=== PATIENT | female | born 1930 | race African-American/Black ===

== ENCOUNTER 2016-10-28 21:39 | Emergency (ER) | payer OTHER ==
[2016-10-28 21:52] VITALS: BMI 28.8
[2016-10-28] MEDS ORDERED: SODIUM CHLORIDE 1,000 ML IV SCH (22:15)
[2016-10-28 22:59] LABS: BASOPHIL 1.5 % (0-2.0); EOSINOPHIL 4.7 % (0-4.5); MCH 28.2 pg (25.7-33.7); MCHC 32.7 g/dl (32.0-36.0); MEAN CELL VOLUME 86.4 fl (80-96); MEAN PLT VOLUME 8.4 fl (7.5-11.1); NEUTROPHILS 44.7 % (42.8-82.8); PLATELET COUNT 237 K/MM3 (134-434); RDW 14.3 % (11.6-15.6); WHITE BLOOD COUNT 6.4 K/mm3 (4.0-10.0)
[2016-10-28 23:11] LABS: URINE APPEARANCE SLCLOUDY; URINE BILIRUBIN NEGATIVE (NEGATIVE); URINE BLOOD NEGATIVE (NEGATIVE); URINE COLOR LTYELLOW; URINE GLUCOSE (UA) NEGATIVE (NEGATIVE); URINE KETONE NEGATIVE (NEGATIVE); URINE NITRITE NEGATIVE (NEGATIVE); URINE PROTEIN NEGATIVE (NEGATIVE); URINE UROBILINOGEN NEGATIVE E.U./dl (0.2-1.0)
[2016-10-28 23:14] LABS: URINE BACTERIA RARE /hpf (NONE SEEN); URINE LEUK ESTERASE TRACE (NEGATIVE); URINE MUCUS RARE; URINE RBC 2 /hpf (0-3); URINE WBC 5 /hpf (3-5)
[2016-10-28 23:16] LABS: INR 0.96 (0.82-1.09); PROTHROMBIN TIME (PATIENT) 10.5 SEC (9.98-11.88)
[2016-10-28 23:23] LABS: ALBUMIN 4.1 g/dl (3.4-5.0); ANION GAP 12 (8-16); BILIRUBIN,TOTAL 0.3 mg/dL (0.2-1.0); CALCIUM 9.5 mg/dL (8.5-10.1); CO2 23 mmol/L (21-32); CREATININE 1.9 mg/dL (0.55-1.02); GLUCOSE,RANDOM 106 mg/dL (74-106); SGOT/AST 24 U/L (15-37); SGPT/ALT 25 U/L (12-78); TOT PROT 7.6 g/dl (6.4-8.2)
[2016-10-28 23:26] LABS: ALK PHOS 72 U/L (45-117); TROPONIN I < 0.02 ng/ml (0.00-0.05)
--- NOTE | 2016-10-28 23:26 | PDOC ---
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 Patient reports her blood pressure medication was recently increased 2 weeks ago. She reports new onset headache today and "pressure behind both eyes." She denies any change in vision, difficulty speaking or swallowing, weakness, difficulty walking. No recent travel or sick contacts. PAST MEDICAL HISTORY: Denies past medical history FAMILY HISTORY: Denies SOCIAL HISTORY: Denies tobacco, alcohol, illicit drug use. SURGICAL HISTORY: Denies ALLERGIES: No known drug allergies REVIEW OF SYSTEMS General/Constitutional: Denies fever or chills. Denies weakness, weight change. HEENT: Pressure behind eyes. Denies change in vision. Denies ear pain or discharge. Denies sore throat. Cardiovascular: Denies chest pain or shortness of breath. Respiratory: Denies cough, wheezing, or hemoptysis. Gastrointestinal: Denies nausea, vomiting, diarrhea or constipation. Denies rectal bleeding. Genitourinary: Denies dysuria, frequency, or change in urination. Musculoskeletal: Denies joint or muscle swelling or pain. Denies neck or back pain. Skin and breasts: Denies rash or easy bruising. Neurologic: Headache today. Denies vertigo, loss of consciousness, or loss of sensation. PHYSICAL EXAM General Appearance: Well-appearing, appropriately dressed. No apparent distress , no intoxication. HEENT: EOMI, PERRLA, normal ENT inspection, normal voice, TMs normal, pharynx normal. No conjunctival pallor. No photophobia, scleral icterus. Neck: Supple. Trachea midline. No tenderness, rigidity, carotid bruit, stridor , lymphadenopathy, or thyromegaly. Respiratory/Chest: Lungs CTAB. No shortness of breath, chest tenderness, respiratory distress, accessory muscle use. No crackles, rales, rhonchi, stridor , wheezing, dullness Cardiovascular: RRR. S1, S2. No JVD, murmur, bradycardia, tachycardia. Vascular Pulses: Dorsalis-Pedis (R): 2+, Dorsalis-Pedis (L): 2+ Gastrointestinal/Abdominal: Normal bowel sounds. Abdomen soft, non-distended. No tenderness or rebound tenderness. No organomegaly, pulsatile mass, guarding , hernia, hepatomegaly, splenomegaly. Lymphatic: No adenopathy, tenderness. Musculoskeletal/Extremities: Normal inspection. FROM of all extremities, normal capillary refill. Pelvis Stable. No CVA tenderness. No tenderness to extremities, pedal edema, swelling, erythema or deformity. Integumentary: Appropriate color, dry, warm. No cyanosis, erythema, jaundice or rash Neurologic: sales marketing manager II-XII intact. Fully oriented, alert. Appropriate mood/affect. Motor strength 5/5. No appreciable EOM palsy, facial droop or sensory deficit. A&Ox3, follow commands, respond appropriately CN2-12: conjugate gaze, pupil round, equal and reactive to light. Visual field full to confrontation. EOMI without nystagmus, pursuit is smooth without saccade. Facial sensation and muscle activation intact bilaterally. Hearing intact bilaterally. Palate elevate symmetrically. Shoulder shrug and neck turn full strength. Tongue protrude midline. Motor: UE and LE strength 5/5 throughout bilaterally. Muscle tone and bulk normal. Sensory: pin prick & temp : BUE & BLE intact and equal bilaterally Vibration & propioception: intact bilaterally at 1st MCP and MTP joints. no sensory level noted on trunk Cerebellar: Rapid-alternating movement with regular rhythm without bradykinesia. Urzjpe-va-ahuv and goqt-iz-tmuz intact bilaterally without dysmetria or overshoot. Gait narrow based. No shuffling. Full hip flexion and knee flexion. Negative Romberg No involuntary movement noted. No pronator drift. No clonus. Past History - Past Medical History Allergies/Adverse Reactions: Allergies Allergy/AdvReac Type Severity Reaction Status Date / Time Sulfa (Sulfonamide Allergy Intermediate Hives Verified 10/28/16 21:52 Antibiotics) Home Medications: Ambulatory Orders Carvedilol 2 tab PO BID tablet 03/09/14 Cholecalciferol (Vitamin D3) [Vitamin D] 1,000 unit PO DAILY 03/09/14 Losartan Potassium 100 mg PO DAILY 03/09/14 Aspirin [Ecotrin] 325 mg PO DAILY 10/28/16 Glipizide Xl [Glucotrol Xl -] 2.5 mg PO DAILY 10/28/16 Hydralazine HCl 50 mg PO BID 10/28/16 CVA: Yes (1999, mild right sided weakness) Diabetes: Yes HTN: Yes Hypercholesterolemia: Yes - Surgical History Orthopedic Surgery: Yes (left knee surgery) - Psycho/Social/Smoking Cessation Hx Anxiety: No Suicidal Ideation: No Smoking Status: No Smoking History: Never smoked Number of Cigarettes Smoked Daily: 0 Hx Alcohol Use: No Drug/Substance Use Hx: No Substance Use Type: None Hx Substance Use Treatment: No *Physical Exam - Vital Signs Last Vital Signs Temp Pulse Resp BP Pulse Ox 97.6 F 63 18 166/92 98 10/28/16 21:49 10/28/16 21:49 10/28/16 21:49 10/28/16 21:49 10/28/16 21:49 ED Treatment Course - LABORATORY CBC & Chemistry Diagram: 10/28/16 22:47 10/28/16 22:47 - ADDITIONAL ORDERS Additional order review: Laboratory Results 10/28/16 23:03 Urine Color Ltyellow Urine Appearance Slcloudy Urine pH 5.0 Urine Protein Negative Urine Glucose (UA) Negative Urine Ketones Negative Urine Blood Negative Urine Nitrite Negative Urine Bilirubin Negative Urine Urobilinogen Negative Ur Leukocyte Esterase Trace H Urine RBC 2 Urine WBC 5 Ur Epithelial Cells Rare Urine Bacteria Rare Urine Mucus Rare 10/28/16 22:47 RBC 4.62 MCV 86.4 MCHC 32.7 RDW 14.3 MPV 8.4 Neutrophils % 44.7 Lymphocytes % 39.1 Monocytes % 10.0 Eosinophils % 4.7 H Basophils % 1.5 - RADIOLOGY Radiology Studies Ordered: Category Date Time Status CHEST PA & LAT [RAD] Stat Radiology 10/28/16 22:13 Ordered Medical Decision Making - Medical Decision Making 10/29/16 05:46 86 yo F with 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 Patient is neurologically intact, speaking in full clear sentences coherently explaining her medical history and medications. VSS. -CBC, CMP, PT/INR -CXR, EKG On repeat VS, patient's BP is 190/84. -10 mg hydralazine given Discussed case with covering PCP Zeferino, who agrees that patient is stable to be discharged home and f/u outpatient in office tomorrow. Repeat BP, 190/86. Patient continues to c/o of pressure behind eyes and that the back of her head continues to hurt. However, on further discussion patient reports that the pain in the back of her head is chronic "especially when I am laying straight on my head." -10 mg Labetalol Patient repeat BP 148/77. Will continue to monitor BP prior to discharge. Patient BP elevated to 170s/100s. Catapres 0.2mg given. Will continue to monitor. BP monitored for following two hours, now stable between 150-160/80-90s. Will discharge to home, patient will see Dr. Mcgarry in office today for BP medication management. *DC/Admit/Observation/Transfer Diagnosis at time of Disposition: Hypertension complications - Discharge Dispostion Disposition: HOME Admit: No - Referrals Referrals: Neda Robertson MD [Primary Care Provider] - - Patient Instructions Printed Discharge Instructions: DI for High Blood Pressure Additional Instructions: As discussed, you must follow up with Dr. Mcgarry in the office today. If you experience any change in vision, sudden weakness, difficulty speaking or swallowing, difficulty walking, or any new or worsening symptoms, please return to the ER immediately.
[2016-10-29] MEDS ORDERED: SODIUM CHLORIDE 0.9% 1000 ML INFUS.BAG IV ONE (00:09)
[2016-10-29] MEDS ORDERED: ACETAMINOPHEN 1000 MG/100 ML VIAL (NON FORMULARY) IVPB ONE (00:17)
[2016-10-29] MEDS ORDERED: ACETAMINOPHEN INJECTION 100 ML IVPB ONE (00:46)
[2016-10-29] MEDS ORDERED: hydrALAZINE HCL 20 MG/ML VIAL IVPUSH ONE ×2 (00:54→02:06)
[2016-10-29] MEDS ORDERED: hydrALAZINE HCL 20 MG/ML VIAL ONE (00:55)
[2016-10-29 01:06] VITALS: TEMP 98
[2016-10-29] MEDS ORDERED: LABETALOL HCL 5 MG/1 ML (100MG/20 ML VIAL) IVPUSH ONE (02:16)
[2016-10-29] MEDS ORDERED: LABETALOL HCL 5 MG/1 ML (200MG/40ML VIAL) IVPB ONE (02:28)
[2016-10-29] MEDS ORDERED: cloNIDine HCL 0.1 MG TABLET PO ONE (03:44)
[2016-10-29] MEDS ORDERED: cloNIDine HCL 0.1 MG TABLET ONE (04:41)
[2016-10-29 07:21] VITALS: BP 90/65; PULSE 60
--- NOTE | 2016-10-29 17:23 | EKG ---
Test Reason : Blood Pressure : / mmHG Vent. Rate : 057 BPM Atrial Rate : 057 BPM P-R Int : 204 ms QRS Dur : 104 ms QT Int : 428 ms P-R-T Axes : 042 014 024 degrees QTc Int : 416 ms SINUS BRADYCARDIA NONSPECIFIC ST-T CHANGES WHEN COMPARED WITH ECG OF 09-MAR-2014 21:22, NO SIGNIFICANT CHANGE WAS FOUND Confirmed by SHANTE ABURTO MD ([id number]) on 10/29/2016 5:22:45 PM Referred By: Confirmed By:SHANTE ABURTO MD
== END 2016-10-29 06:59 | disposition home or self-care (01) ==
LOC: JER 21:39
PROC: 3E0337Z Introduction of Electrolytic and Water Balance Substance into Peripheral Vein, Percutaneous Approach (ICD-10-PCS; principal; 2016-10-28)
PROC: 3E033NZ Introduction of Analgesics, Hypnotics, Sedatives into Peripheral Vein, Percutaneous Approach (ICD-10-PCS; 2016-10-28)
PROC: 3E033GC Introduction of Other Therapeutic Substance into Peripheral Vein, Percutaneous Approach (ICD-10-PCS; 2016-10-28)
PROC: 3E033GC Introduction of Other Therapeutic Substance into Peripheral Vein, Percutaneous Approach (ICD-10-PCS; 2016-10-28)
DX: I10 Essential (primary) hypertension (principal); E11.9 Type 2 diabetes mellitus without complications; Z79.84 Long term (current) use of oral hypoglycemic drugs; E78.00 Pure hypercholesterolemia, unspecified; I69.851 Hemiplegia and hemiparesis following other cerebrovascular disease affecting right dominant side
CPT/HCPCS: 36415; 71020-TC; 80053; 81003; 81015; 82550; 82553; 83880; 84484; 85025; 85610; 93005; 93010; 96361; 96374; 96375; 99283-25

== ENCOUNTER 2016-11-25 05:19 | Inpatient (IN) | payer OTHER ==
[2016-11-25 05:50] VITALS: BMI 28.8
--- NOTE | 2016-11-25 05:59 | PDOC ---
History of Present Illness - General Chief Complaint: Pain, Acute Stated Complaint: RT SIDE FLANK PAIN/BACK PAIN Time Seen by Provider: 11/25/16 05:48 History Source: Patient - History of Present Illness Initial Comments: 11/25/16 05:55 86 year old female with right sided chest pain radiating right posterior. pain worse with movement. patient reports pleuritic chest pain. denies diaphoresis, trauma, heavy lifting, NVD, abdominal pain, urinary complaints. pmhx: htn, dm, cva with right sided weakness Past History - Past Medical History Allergies/Adverse Reactions: Allergies Allergy/AdvReac Type Severity Reaction Status Date / Time Sulfa (Sulfonamide Allergy Intermediate Hives Verified 11/25/16 05:30 Antibiotics) Home Medications: Ambulatory Orders Carvedilol 6.25 mg PO BID tablet 03/09/14 Cholecalciferol (Vitamin D3) [Vitamin D] 1,000 unit PO DAILY 03/09/14 Losartan Potassium 100 mg PO DAILY 03/09/14 Aspirin [Ecotrin] 325 mg PO DAILY 10/28/16 Glipizide Xl [Glucotrol Xl -] 2.5 mg PO DAILY 10/28/16 Hydralazine HCl 50 mg PO BID 10/28/16 Nifedipine ER [Procardia Xl -] 30 mg PO DAILY 11/25/16 CVA: Yes (1999, mild right sided weakness) Diabetes: Yes HTN: Yes Hypercholesterolemia: Yes - Surgical History Orthopedic Surgery: Yes (left knee surgery) - Psycho/Social/Smoking Cessation Hx Anxiety: No Suicidal Ideation: No Smoking Status: No Smoking History: Never smoked Number of Cigarettes Smoked Daily: 0 Hx Alcohol Use: No Drug/Substance Use Hx: No Substance Use Type: None Hx Substance Use Treatment: No Review of Systems - Review of Systems Able to Perform ROS?: Yes Is the patient limited Yemeni proficient: No Respiratory: Yes: Other (right chest to right posterior tender to touch) Cardiac (ROS): Yes: Chest Pain (right ) ABD/GI: No: Symptoms Reported, See HPI, Abdominal Distended, Abd. Pain w/ defecation, Blood Streaked Bowels, Constipated, Diarrhea, Difficulty Swallowing , Nausea, Poor Appetite, Poor Fluid Intake, Rectal Bleeding, Vomiting, Indigestion, Abdominal cramping, Tarry Stools, Other *Physical Exam - Vital Signs Last Vital Signs Temp Pulse Resp BP Pulse Ox 97.8 F 82 20 158/72 97 11/25/16 05:36 11/25/16 05:36 11/25/16 05:36 11/25/16 05:36 11/25/16 05:36 - Physical Exam General Appearance: Yes: Appropriately Dressed Respiratory/Chest: positive: Chest Tender (right anterior and posterior chest is tender to touch), Lungs Clear, Decreased Breath Sounds (right base slightly decreased breath sounds. no wheezing, no retractions. pain on palpation and pain worse with movement) Cardiovascular: positive: Regular Rhythm, Regular Rate Gastrointestinal/Abdominal: positive: Normal Bowel Sounds, Soft. negative: Tender Musculoskeletal: positive: Normal Inspection Extremity: positive: Normal Capillary Refill, Normal Inspection, Normal Range of Motion Integumentary: positive: Normal Color, Dry, Warm Neurologic: positive: Fully Oriented, Alert ED Treatment Course - LABORATORY CBC & Chemistry Diagram: 11/25/16 06:15 11/25/16 06:15 Progress Note - Progress Note Progress Note: A: chest pain P: cbc cmp d-dimer EKG chest xray pa and lateral *DC/Admit/Observation/Transfer Diagnosis at time of Disposition: Pleuritic chest pain - Referrals Referrals: Neda Robertson MD [Primary Care Provider] -
[2016-11-25] MEDS ORDERED: ASPIRIN 81 MG CHEWABLE TABLETS PO ONE ×2 (06:01→13:15)
[2016-11-25 06:54] LABS: BASOPHIL 0.5 % (0-2.0); EOSINOPHIL 2.5 % (0-4.5); MCH 29.6 pg (25.7-33.7); MEAN CELL VOLUME 86.9 fl (80-96); NEUTROPHILS 69.8 % (42.8-82.8); PLATELET COUNT 239 K/MM3 (134-434); RDW 14.4 % (11.6-15.6); WHITE BLOOD COUNT 9.7 K/mm3 (4.0-10.0)
[2016-11-25] MEDS ORDERED: morphine CARPU-JECT 2 MG/1 ML DISP.SYRIN IVPUSH ONE (07:03)
--- NOTE | 2016-11-25 07:07 | PDOC ---
*Physical Exam - Vital Signs Last Vital Signs Temp Pulse Resp BP Pulse Ox 97.8 F 82 20 158/72 97 11/25/16 05:36 11/25/16 05:36 11/25/16 05:36 11/25/16 05:36 11/25/16 05:36 ED Treatment Course - LABORATORY CBC & Chemistry Diagram: 11/25/16 06:15 11/25/16 06:15 - Medications Given in the ED: ED Medications Discontinued Medications Generic Name Dose Route Start Last Admin Trade Name Armin PRN Reason Stop Dose Admin Aspirin 162 mg 11/25/16 06:01 11/25/16 06:40 Asa - PO 11/25/16 06:02 Not Given ONCE ONE Medical Decision Making - Medical Decision Making 11/25/16 07:04 I agree with CL Collins's history, assessment and plan 86yo F p/w R sided atraumatic pleuritic CP with no associated infectious sxs concering for PE vs ACS vs PNA -labs -dimer, if positive, obtain CTA -CXR -pain control -reassess *DC/Admit/Observation/Transfer Diagnosis at time of Disposition: Pleuritic chest pain - Referrals Referrals: Neda Robertson MD [Primary Care Provider] - - Patient Instructions - Post Discharge Activity
[2016-11-25 07:20] LABS: ALBUMIN 3.5 g/dl (3.4-5.0); ANION GAP 10 (8-16); BILIRUBIN,TOTAL 0.7 mg/dL (0.2-1.0); CALCIUM 8.6 mg/dL (8.5-10.1); CO2 23 mmol/L (21-32); CREATININE 1.5 mg/dL (0.55-1.02); GLUCOSE,RANDOM 137 mg/dL (74-106); SGPT/ALT 21 U/L (12-78); TOT PROT 6.9 g/dl (6.4-8.2)
[2016-11-25 07:34] LABS: ALK PHOS 67 U/L (45-117)
[2016-11-25 07:44] LABS: INR 1.02 (0.82-1.09); PROTHROMBIN TIME (PATIENT) 11.2 SEC (9.98-11.88)
--- NOTE | 2016-11-25 07:52 | PDOC ---
ED Treatment Course - LABORATORY CBC & Chemistry Diagram: 11/25/16 06:15 11/25/16 06:15 - ADDITIONAL ORDERS Additional order review: Laboratory Results 11/25/16 11/25/16 06:15 06:15 D-Dimer Cancelled B-Natriuretic Peptide 2823.25 H 11/25/16 06:15 RBC 4.13 MCV 86.9 MCHC 34.0 RDW 14.4 MPV 9.0 Neutrophils % 69.8 D Lymphocytes % 17.8 D Monocytes % 9.4 Eosinophils % 2.5 Basophils % 0.5 - Medications Given in the ED: ED Medications Discontinued Medications Generic Name Dose Route Start Last Admin Trade Name Armin PRN Reason Stop Dose Admin Aspirin 162 mg 11/25/16 06:01 11/25/16 06:40 Asa - PO 11/25/16 06:02 Not Given ONCE ONE Progress Note - Progress Note Progress Note: I have received report from CL Collins regarding this patient. Pt's initial chief complaint: right sided chest pain radiating to right posterior. Pt's work up completed prior to sign out: EKG, CBC Pt treatment given from prior staff: Aspirin, morphine Pt plan to be completed: CXR, completion of labs Dispo: Pending Medical Decision Making - Medical Decision Making A/P: 86 y/o afebrile female with right sided chest pain radiating to right posterior, worse with movement and deep inspiration. Pt was initially seen and assessed by CL Collins. Awaiting completion of labs and xrays. CXR and rib xray IMPRESSION: Small right pleural effusion Troponin 0.97; was <0.02 on 10/28/16 BNP 2800; was 90 on 10/28/16 This is most likely an NSTEMI as there are no ST elevations on EKG. The patient states she's been having the pain for [address] Huber for cardiology. Paged Dr. Gonzalez multiple times as he was in the ER but no call back. Called Dr. Huber at his office. Still awaiting call back. Called Dr. Robertson for admission and Dario Mcgarry is covering for her so awaiting his call back. The patient is on daily ecotrin (aspirin) spoke with Dr. gonzalez who would like heparin protocol (Pt had CVA in 1999). Spoke with Dr. Brook Mcgarry who accepts admission to him. The patient states her chest pain is resolved since having Morphine upon arrival to the ER, so will hold off on giving Nitro and more morphine. *DC/Admit/Observation/Transfer Diagnosis at time of Disposition: Pleuritic chest pain, NSTEMI (non-ST elevated myocardial infarction) - Discharge Dispostion Condition at time of disposition: Stable Admit: Yes - Referrals Referrals: Neda Robertson MD [Primary Care Provider] - - Patient Instructions - Post Discharge Activity
[2016-11-25 08:28] LABS: MAGNESIUM 2.4 mg/dL (1.8-2.4)
[2016-11-25 08:29] LABS: CPK 312 IU/L (26-192); SGOT/AST 36 U/L (15-37)
[2016-11-25 08:30] LABS: TROPONIN I 0.97 ng/ml (0.00-0.05)
[2016-11-25] MEDS ORDERED: morphine CARPU-JECT 4 MG/1 ML DISP.SYRIN ONE (08:50)
[2016-11-25 09:27] LABS: URINE APPEARANCE SLCLOUDY; URINE BILIRUBIN NEGATIVE (NEGATIVE); URINE BLOOD NEGATIVE (NEGATIVE); URINE COLOR LTYELLOW; URINE GLUCOSE (UA) NEGATIVE (NEGATIVE); URINE KETONE NEGATIVE (NEGATIVE); URINE LEUK ESTERASE NEGATIVE (NEGATIVE); URINE NITRITE NEGATIVE (NEGATIVE); URINE PROTEIN NEGATIVE (NEGATIVE); URINE UROBILINOGEN NEGATIVE mg/dL (0.2-1.0)
[2016-11-25] MEDS ORDERED: HEPARIN NA (PORCINE) 5,000 UNITS/ML 1ML VIAL IVPUSH PRN ×2 (11:35)
--- NOTE | 2016-11-25 11:44 | CON.CARD ---
Consult Consult Specialty:: cardio Referred by:: renae hathaway Reason for Consultation:: cp, NSTEMI - History of Present Illness Chief Complaint: cp History of Present Illness: 86 yo female admitted with CP. 2d ago began feeling pain under R breast near axillary line, radiating around to R scapula. marked pleuritic component. no assctd sob--has chronic sob ever since her stroke and feels this is same sob. pain came and went that day, back yest during day but milder. then 5pm last night, more intensive pain in same area. also tender to touch and when lays on the R scapula region in bed. no leg swelling, pain; denies h/o DVT/VTE trop 0.9--heparin started in ER. home meds: ASA 81, coreg 6.25 bid, hydral 50 bid (recently incr'd by [facility] for hi bp), losartan 50 qd (sees [facility]) PMH: HTN HPL cva - Alcohol/Substance Use Hx Alcohol Use: No - Smoking History Smoking history: Never smoked Aproximately how many cigarettes per day: 0 Home Medications - Allergies Allergies/Adverse Reactions: Allergies Allergy/AdvReac Type Severity Reaction Status Date / Time Sulfa (Sulfonamide Allergy Intermediate Hives Verified 11/25/16 05:30 Antibiotics) - Home Medications Home Medications: Ambulatory Orders Carvedilol 6.25 mg PO BID tablet 03/09/14 Cholecalciferol (Vitamin D3) [Vitamin D] 1,000 unit PO DAILY 03/09/14 Losartan Potassium 100 mg PO DAILY 03/09/14 Aspirin [Ecotrin] 325 mg PO DAILY 10/28/16 Glipizide Xl [Glucotrol Xl -] 2.5 mg PO DAILY 10/28/16 Hydralazine HCl 50 mg PO BID 10/28/16 Nifedipine ER [Procardia Xl -] 30 mg PO DAILY 11/25/16 Family Disease History - Family Disease History Family History: Denies (no cmp) Review of Systems - Review of Systems Constitutional: denies: Chills, Fever Eyes: denies: Eye Pain HENT: denies: Nasal Congestion Neck: denies: Stiffness Cardiovascular: denies: Palpitations Respiratory: denies: Orthopnea, PND Gastrointestinal: denies: Diarrhea, Rectal Bleeding Genitourinary: denies: Burning, Hematuria Musculoskeletal: denies: Muscle Pain Integumentary: denies: Rash Neurological: denies: Numbness, Seizure, Syncope Endocrine: denies: Excessive Sweating Hematology/Lymphatic: denies: Excessive Bleeding Vital Signs: Vital Signs Temperature 98.4 F 11/25/16 09:08 Pulse Rate 68 11/25/16 09:08 Respiratory Rate 18 11/25/16 09:08 Blood Pressure 147/68 11/25/16 09:08 O2 Sat by Pulse Oximetry (%) 98 11/25/16 09:08 Constitutional: Yes: Well Nourished, No Distress Eyes: No: Sclera Icterus HENT: No: Nasal Congestion Neck: No: Decreased ROM Respiratory: Yes: CTA Bilaterally. No: Accessory Muscle Use, Rales, Wheezes Gastrointestinal: Yes: Normal Bowel Sounds. No: Distention, Hepatomegaly, Palpable Mass, Tenderness Cardiovascular: Yes: Regular Rate and Rhythm JVD: No Carotid Bruit: No PMI: Non-Displaced Heart Sounds: Yes: S1, S2. No: Gallop Murmur: No: Systolic Murmur, Diastolic Murmur Musculoskeletal: Yes: Other (No kyphosis) Extremities: No: Cold, Cyanosis Edema: No (no induratn/cord/tender) Peripheral Pulses: 2+ Left Carotid, 2+ Right Carotid, 2+ Left Doralis Pedis, 2+ Right Dorsalis Pedis Integumentary: No: Jaundice Neurological: Yes: Alert, Oriented (x3) Psychiatric: No: Agitated - Other Data Labs, Other Data: CBC, BMP 11/25/16 06:15 11/25/16 06:15 INR, PTT INR 1.02 (0.82-1.09) 11/25/16 06:15 Troponin, BNP 11/25/16 11/25/16 06:15 06:15 Troponin I 0.97 H* B-Natriuretic Peptide 2823.25 H Troponin, BNP 11/25/16 11/25/16 06:15 06:15 Troponin I 0.97 H* B-Natriuretic Peptide 2823.25 H Laboratory Tests 11/25/16 11/25/16 11/25/16 06:15 06:15 06:15 WBC 9.7 D Hgb 12.2 Plt Count 239 Sodium 137 Potassium 4.5 Carbon Dioxide 23 BUN 29 H D Creatinine 1.5 H D AST 36 D ALT 21 Creatine Kinase 312 H CK-MB (CK-2) 3.543 Troponin I 0.97 H* B-Natriuretic Peptide 2823.25 H Imaging - Results Chest X-ray: Report Reviewed, Image Reviewed Assessment/Plan MIBI 10/05: no ischemia or scar, hyper EF Echo 05/07: nl LV, nl RV; mild AI CXR (gitig review): clear lungs/pleura, no vasc redistribution, doubt small R effusion EKG 11/25: NSR, normal axis/intervals; no path q's; nonsp TWIs v2/v3 and flat T's in V4--new vs prior (10/28/16) atypical (right sided, pleuritic) CP, NSTEMI: -chronic sob, with prior noninvasive CV w/u negative including recently with repeat MPI (10/05) and echo (05/07)--sx's not changed of late -now with 2d of R chest pain near axillary line to back, positional/tender and pleuritic. trop 0.9 initially, nonspecific ecg changes vs prior. -sx's NOT SUSPICIOUS FOR ACS--? PE (would explain also the acutely increased BNP despite no chf on exam and clear lungs on cxr) -monitor serial enzymes -given ASA 162 in ER, repeat 162 now -start UFH now (d/w'd barrie THORNE in ER who will start it now)--this will cover her for PE as well as ACS -check echo (ordered STAT for RV) -check LE venous dopplers -will plan to do CTA or V/Q--creat 1.5, was 1.9 few wks ago. will start IVF as she is not in heart failure. asked pulmonary to see to comment on whether can wait till tomorrow's creatinine for ? CTA tomorrow (given clinically stable) vs V/Q tomorrow or today -start lopressor 25 bid now -not on statin at home--defer here while await dx acute diast chf: -BNP 2800, from 90 in 11/04 -likely acute chf sec to acute myocardial ischemia MICHAEL on CKD: -per dr hathaway, pt creat at baseline (09/04) was 1.3; -was up to 1.9 last month in ER, currently 1.5 HTN: -bp not controlled 10/05 in office--hydral incr'd (50 bid) -reasonably controlled here DM: -per pmd
[2016-11-25] MEDS ORDERED: SODIUM CHLORIDE 1,000 ML IV SCH (13:00)
[2016-11-25] MEDS ORDERED: HEPARIN INFUSION - 500 ML IVPB ONE (13:02)
[2016-11-25] MEDS ORDERED: HEPARIN NA (PORCINE) 5,000 UNITS/ML 1ML VIAL ONE (13:02)
[2016-11-25] MEDS: HEPARIN - 25,000 UNIT in SODIUM CHLORIDE 495 ML IV SCH (13:10)
--- NOTE | 2016-11-25 13:34 | EKG ---
Test Reason : Blood Pressure : / mmHG Vent. Rate : 068 BPM Atrial Rate : 068 BPM P-R Int : 192 ms QRS Dur : 106 ms QT Int : 430 ms P-R-T Axes : 035 -02 -06 degrees QTc Int : 457 ms NORMAL SINUS RHYTHM T WAVE ABNORMALITY, CONSIDER ANTERIOR ISCHEMIA ABNORMAL ECG WHEN COMPARED WITH ECG OF 28-OCT-2016 23:22, T WAVE VARIATION T WAVE INVERSION NOW EVIDENT IN ANTERIOR LEADS Confirmed by AUGUSTINA BARNARD, DEEP ([id number]) on 11/25/2016 1:34:27 PM Referred By: Confirmed By:DEEP JACKMAN MD
[2016-11-25] MEDS: METOPROLOL TARTRATE 25 MG TABLET (FP) PO SCH ×2 (14:55→23:46)
[2016-11-25] MEDS ORDERED: ASPIRIN 81 MG CHEWABLE TABLETS ONE ×2 (15:08→15:10)
[2016-11-25] MEDS ORDERED: METOPROLOL TARTRATE 25 MG TABLET (FP) ONE (15:09)
[2016-11-25 16:22] LABS: TROPONIN I 0.58 ng/ml (0.00-0.05)
--- NOTE | 2016-11-25 18:24 | CON.PULM ---
Consult Consult Specialty:: PULM/CCM Referred by:: TRI Reason for Consultation:: CP - History of Present Illness Chief Complaint: CP History of Present Illness: 86 F, with listed medical/surgical history. Reports intermittent SOB and VOSS. No chronic cough. Life long non-smoker. No personal or family history of VTE. Presented to the ER due to right sided pleuritic type pain with inspiration. No travel history or sick contacts. No fever or chills. No night sweats or hemoptysis. Noted (+) troponin. Pain is not reproducible. She was seen by cardiology and started on IV Heparin. She was also given ASA. Doppler (-) for DVT. CXR : minimal blunting of the Right CP angle. No other acute findings noted. Mediastinum is not widened. Noted elevated BNP. (+) risk factors for OSAS but has not been formally tested. Saturation is 98% on RA and her HR is 68. 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 Cardio/Vascular: Yes: HTN Pulmonary: No: Asthma, COPD, O2 Dependent, Previously Intubated, Pulmonary Embolus Renal/: Yes: Renal Inusuff - Alcohol/Substance Use Hx Alcohol Use: No - Smoking History Smoking history: Never smoked Aproximately how many cigarettes per day: 0 Home Medications - Allergies Allergies/Adverse Reactions: Allergies Allergy/AdvReac Type Severity Reaction Status Date / Time Sulfa (Sulfonamide Allergy Intermediate Hives Verified 11/25/16 05:30 Antibiotics) - Home Medications Home Medications: Ambulatory Orders Carvedilol 6.25 mg PO BID tablet 03/09/14 Cholecalciferol (Vitamin D3) [Vitamin D] 1,000 unit PO DAILY 03/09/14 Losartan Potassium 100 mg PO DAILY 03/09/14 Aspirin [Ecotrin] 325 mg PO DAILY 10/28/16 Glipizide Xl [Glucotrol Xl -] 2.5 mg PO DAILY 10/28/16 Hydralazine HCl 50 mg PO BID 10/28/16 Nifedipine ER [Procardia Xl -] 30 mg PO DAILY 11/25/16 Review of Systems - Review of Systems Constitutional: denies: Chills, Fever, Night Sweats, Unintentional Wgt. Loss Eyes: reports: No Symptoms HENT: reports: No Symptoms Neck: reports: No Symptoms Cardiovascular: reports: Chest Pain, Shortness of Breath. denies: Edema, Palpitations Respiratory: reports: Snoring, SOB, SOB on Exertion. denies: Cough, Hemoptysis , Orthopnea, Wheezing Gastrointestinal: reports: No Symptoms Genitourinary: reports: No Symptoms Breasts: reports: No Symptoms Reported Musculoskeletal: reports: Back Pain Integumentary: reports: No Symptoms Neurological: reports: No Symptoms Endocrine: reports: No Symptoms Hematology/Lymphatic: reports: No Symptoms Psychiatric: reports: No Symptoms Physical Exam Vital Sings: Vital Signs Temperature 97.9 F 11/25/16 16:15 Pulse Rate 68 11/25/16 16:15 Respiratory Rate 16 11/25/16 16:15 Blood Pressure 158/75 11/25/16 16:15 O2 Sat by Pulse Oximetry (%) 99 11/25/16 16:15 Constitutional: Yes: No Distress, Obese Eyes: Yes: WNL, Conjunctiva Clear HENT: Yes: WNL, Atraumatic, Normocephalic Neck: Yes: Supple, Trachea Midline Cardiovascular: Yes: Regular Rate and Rhythm, Bradycardia Respiratory: Yes: Regular, CTA Bilaterally, Cough, Diminished. No: Accessory Muscle Use, On Nasal O2, Rales, Rhonchi, Stridor, Tachypnea, Wheezes ...Inspection: Yes: WNL ...Clubbing: No Gastrointestinal: Yes: WNL, Normal Bowel Sounds, Soft, Abdomen, Obese Renal/: Yes: WNL Musculoskeletal: Yes: Back Pain Edema: No Peripheral Pulses WNL: Yes Integumentary: Yes: WNL Neurological: Yes: WNL, Alert, Oriented ...Motor Strength: WNL Psychiatric: Yes: WNL, Alert, Oriented Imaging - Results Chest X-ray: Report Reviewed, Image Reviewed Ultrasound: Report Reviewed, Image Reviewed Problem List - Problems (1) NSTEMI (non-ST elevated myocardial infarction) Code(s): I21.4 - NON-ST ELEVATION (NSTEMI) MYOCARDIAL INFARCTION (2) Pleuritic chest pain Code(s): R07.81 - PLEURODYNIA (3) Hypertension Code(s): I10 - ESSENTIAL (PRIMARY) HYPERTENSION Assessment/Plan PLAN: Agree with IV Heparin for now Low clinical suspicion of VTE, but given her atypical presentation -> would R/O PE. As her CXR is essentially normal -> would not risk LEE but V/Q scanning O2 as needed OSAS workup after discharge IVF ECHO Telemetry monitoring Dr Muniz
[2016-11-25] MEDS ORDERED: ATORVASTATIN CA 80 MG TABLET (FP) PO SCH (22:00)
[2016-11-25 22:40] LABS: TROPONIN I 0.5 ng/ml (0.00-0.05)
[2016-11-25] MEDS: ATORVASTATIN CA 10 MG TABLET (FP) PO SCH (23:46)
[2016-11-25] MEDS: hydrALAZINE HCL 50 MG TABLET (FP) PO SCH (23:46)
[2016-11-25] MEDS: INSULIN DETEMIR 100 UNITS/ML MDV SQ SCH (23:46)
[2016-11-26] MEDS: ACETAMINOPHEN 325 MG TABLET (FP) PO PRN (04:12)
[2016-11-26] MEDS: INSULIN SLIDING SCALE (NOVOLOG) 1 VIAL SQ SCH ×3 (06:55→18:12)
[2016-11-26] MEDS ORDERED: oxyCODONE HCL 5 MG TABLET PO ONE (07:30)
[2016-11-26] MEDS ORDERED: ACETAMINOPHEN 325 MG TABLET (FP) PO ONE (07:30)
[2016-11-26 07:45] LABS: ANION GAP 10 (8-16); CALCIUM 8.9 mg/dL (8.5-10.1); CO2 23 mmol/L (21-32); CREATININE 1.3 mg/dL (0.55-1.02); GLUCOSE,RANDOM 142 mg/dL (74-106)
[2016-11-26 09:03] LABS: CHOLESTEROL 200 mg/dL (50-200); LDL CHOLESTEROL (ONLY SJRH) 124 mg/dL (5-100)
[2016-11-26 09:04] LABS: CPK 211 IU/L (26-192)
[2016-11-26] MEDS: ASPIRIN 325 MG ENTERIC COATED TABLET (FP) PO SCH (09:21)
[2016-11-26] MEDS: hydrALAZINE HCL 50 MG TABLET (FP) PO SCH ×2 (09:21→21:56)
[2016-11-26] MEDS: CHOLECALCIFEROL (VITAMIN D3) 1,000 UNIT TABLET (FP) PO SCH (09:21)
[2016-11-26] MEDS: METOPROLOL TARTRATE 25 MG TABLET (FP) PO SCH ×2 (09:22→21:56)
[2016-11-26] MEDS ORDERED: LOSARTAN POTASSIUM 50 MG TABLET (FP) PO SCH (10:00)
--- NOTE | 2016-11-26 11:32 | HP ---
Admitting History and Physical - Primary Care Physician PCP: Neda Robertson - Admission Chief Complaint: chest pain , SOB History of Present Illness: ER HISTORY - History of Present Illness Initial Comments: 11/25/16 05:55 86 year old female with right sided chest pain radiating right posterior. pain worse with movement. patient reports pleuritic chest pain. denies diaphoresis, trauma, heavy lifting, NVD, abdominal pain, urinary complaints. 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 Cardiovascular: Yes: HTN Pulmonary: No: Asthma, COPD, O2 Dependent, Previously Intubated, Pulmonary Embolus Renal/: Yes: Renal Inusuff - Smoking History Smoking history: Never smoked Aproximately how many cigarettes per day: 0 - Alcohol/Substance Use Hx Alcohol Use: No Home Medications - Allergies Allergies/Adverse Reactions: Allergies Allergy/AdvReac Type Severity Reaction Status Date / Time Sulfa (Sulfonamide Allergy Intermediate Hives Verified 11/25/16 05:30 Antibiotics) - Home Medications Home Medications: Ambulatory Orders Carvedilol 6.25 mg PO BID tablet 03/09/14 Cholecalciferol (Vitamin D3) [Vitamin D] 1,000 unit PO DAILY 03/09/14 Losartan Potassium 100 mg PO DAILY 03/09/14 Aspirin [Ecotrin] 325 mg PO DAILY 10/28/16 Glipizide Xl [Glucotrol Xl -] 2.5 mg PO DAILY 10/28/16 Hydralazine HCl 50 mg PO BID 10/28/16 Nifedipine ER [Procardia Xl -] 30 mg PO DAILY 11/25/16 Review of Systems - Review of Systems Constitutional: denies: Chills, Fever Cardiovascular: reports: Chest Pain, Shortness of Breath. denies: Edema, Palpitations Physical Examination Vital Signs: Vital Signs Temperature 98.9 F 11/26/16 06:00 Pulse Rate 70 11/26/16 06:00 Respiratory Rate 18 11/26/16 06:00 Blood Pressure 127/50 11/26/16 06:00 O2 Sat by Pulse Oximetry (%) 97 11/25/16 23:00 Constitutional: Yes: No Distress, Calm Cardiovascular: Yes: Regular Rate and Rhythm Respiratory: Yes: Diminished Gastrointestinal: Yes: Normal Bowel Sounds, Soft. No: Distention, Tenderness Edema: No Psychiatric: Yes: Alert, Oriented Labs: CBC, BMP 11/26/16 05:35 Imaging - Results Chest X-ray: Image Reviewed (small rt pleural effusion) X-ray: Report Reviewed Ultrasound: Report Reviewed (no DVT) EKG: Image Reviewed (Sinus) Problem List - Problems (1) NSTEMI (non-ST elevated myocardial infarction) Code(s): I21.4 - NON-ST ELEVATION (NSTEMI) MYOCARDIAL INFARCTION (2) Pleuritic chest pain Code(s): R07.81 - PLEURODYNIA (3) Hypertension Code(s): I10 - ESSENTIAL (PRIMARY) HYPERTENSION (4) CKD (chronic kidney disease) Code(s): N18.9 - CHRONIC KIDNEY DISEASE, UNSPECIFIED Assessment/Plan PLAN Spoke with Cardiology yesterday IV fluids Baseline creatinine around 1.3 On Heparin drip Pleuritic chest pain Pulmonary eval noted BP control Renal eval for V/Q scan
--- NOTE | 2016-11-26 12:17 | PN ---
Progress Note (short form) - Note Progress Note: Chief Complaint: cp History of Present Illness: S: cp improving but persists, stable sob, no palps, dizziness. Current Medications Acetaminophen (Tylenol -) 650 mg PO Q6H PRN PRN Reason: FEVER OR PAIN Last Admin: 11/26/16 04:12 Dose: 650 mg Aspirin (Ecotrin -) 325 mg PO DAILY [facility] Last Admin: 11/26/16 09:21 Dose: 325 mg Atorvastatin Calcium (Lipitor -) 10 mg PO HS [facility] Last Admin: 11/25/16 23:46 Dose: Not Given Cholecalciferol (Vitamin D3 -) 1,000 unit PO DAILY [facility] Last Admin: 11/26/16 09:21 Dose: 1,000 unit Heparin Sodium (Porcine) (Heparin -) 1,000 unit IVPUSH PRN PRN PRN Reason: Heparin Heparin Sodium (Porcine) (Heparin -) 5,000 unit IVPUSH PRN PRN PRN Reason: Heparin Hydralazine HCl (Apresoline -) 50 mg PO BID [facility] Last Admin: 11/26/16 09:21 Dose: 50 mg Heparin Sodium (Porcine) 25, (000 unit/ Sodium Chloride) 500 mls @ 20 mls/hr IV TITR TERI; 1,000 UNIT/HR PRN Reason: Protocol Last Admin: 11/25/16 13:10 Dose: 20 mls/hr Sodium Chloride (Normal Saline -) 1,000 mls @ 75 mls/hr IV ASDIR [facility] Last Admin: 11/25/16 14:54 Dose: 75 mls/hr Insulin Aspart (Novolog Vial Sliding Scale -) 1 vial SQ TIDAC [facility] PRN Reason: Protocol Last Admin: 11/26/16 06:55 Dose: Not Given Insulin Detemir (Levemir Vial) 5 units SQ HS [facility] Last Admin: 11/25/16 23:46 Dose: Not Given Losartan Potassium (Cozaar -) 100 mg PO DAILY [facility] Last Admin: 11/26/16 09:21 Dose: 100 mg Metoprolol Tartrate (Lopressor -) 25 mg PO BID [facility] Last Admin: 11/26/16 09:22 Dose: 25 mg Vital Signs - 24 hr 11/25/16 11/25/16 11/25/16 16:15 21:30 23:00 Temperature 97.9 F 98.4 F 98.4 F Pulse Rate 68 74 Pulse Rate [ 68 78 Apical] Respiratory 16 16 19 Rate Blood Pressure 158/75 156/70 Blood Pressure 158/75 146/65 [Left Arm] O2 Sat by Pulse 99 96 97 Oximetry (%) 11/26/16 11/26/16 11/26/16 02:44 06:00 09:00 Temperature 98.3 F 98.9 F Pulse Rate 73 70 Pulse Rate [ Apical] Respiratory 18 18 18 Rate Blood Pressure 152/73 127/50 Blood Pressure [Left Arm] O2 Sat by Pulse 96 Oximetry (%) 11/26/16 10:00 Temperature 98.2 F Pulse Rate 73 Pulse Rate [ Apical] Respiratory 18 Rate Blood Pressure 123/70 Blood Pressure [Left Arm] O2 Sat by Pulse Oximetry (%) Intake & Output 11/24/16 11/25/16 11/26/16 11/27/16 07:59 07:59 07:59 07:59 Intake Total 820 240 Balance 820 240 Weight 190 lb 190 lb 0.016 oz Constitutional: Yes: Well Nourished, No Distress Eyes: No: Sclera Icterus HENT: No: Nasal Congestion Neck: No: Decreased ROM Respiratory: Yes: CTA Bilaterally. No: Accessory Muscle Use, Rales, Wheezes Gastrointestinal: Yes: Normal Bowel Sounds. No: Distention, Hepatomegaly, Palpable Mass, Tenderness Cardiovascular: Yes: Regular Rate and Rhythm JVD: No Carotid Bruit: No PMI: Non-Displaced Heart Sounds: Yes: S1, S2. No: Gallop Murmur: No: Systolic Murmur, Diastolic Murmur Musculoskeletal: Yes: Other (No kyphosis) Extremities: No: Cold, Cyanosis Edema: No (no induratn/cord/tender) Peripheral Pulses: 2+ Left Carotid, 2+ Right Carotid, 2+ Left Doralis Pedis, 2+ Right Dorsalis Pedis Integumentary: No: Jaundice Neurological: Yes: Alert, Oriented (x3) Psychiatric: No: Agitated - Other Data Labs, Other Data: CBC, BMP 11/25/16 06:15 11/26/16 05:35 Laboratory Tests 11/25/16 11/25/16 11/25/16 06:15 06:15 14:47 Creatinine 1.5 H D Creatine Kinase 312 H 240 H Creatine Kinase Index 1.1 1.1 CK-MB (CK-2) 3.543 2.727 Troponin I 0.97 H* 0.58 H B-Natriuretic Peptide 2823.25 H Triglycerides Cholesterol Total LDL Cholesterol HDL Cholesterol 11/25/16 11/26/16 21:45 05:35 Creatinine Creatine Kinase 260 H 211 H Creatine Kinase Index 0.9 0.7 CK-MB (CK-2) 2.599 1.572 Troponin I 0.50 H 0.30 H B-Natriuretic Peptide Triglycerides 85 Cholesterol 200 Total LDL Cholesterol 124 H HDL Cholesterol 56 Imaging - Results Chest X-ray: Report Reviewed, Image Reviewed Assessment/Plan tele: SR MIBI 10/05: no ischemia or scar, hyper EF Echo 11/2016: nl lv/rv. grade 1 diastolic dysfunction. 1+ lae, 1+ mr, mod TR. rvsp 30-40. Echo 05/07: nl LV, nl RV; mild AI CXR (gitig review): clear lungs/pleura, no vasc redistribution, doubt small R effusion EKG 11/25: NSR, normal axis/intervals; no path q's; nonsp TWIs v2/v3 and flat T's in V4--new vs prior (10/28/16) 86 yo with htn, HL, niddm, cva with residual right sided weakness, CKD (bline cr 1.3), COPD, O2 Dependent, prior PE, p/w cp and troponin elevation of 0.9. atypical (right sided, pleuritic) CP, NSTEMI: -chronic sob, with prior noninvasive CV w/u negative including recently with repeat MPI (10/05) and echo (05/07)--sx's not changed of late -now with 2d of R chest pain near axillary line to back, positional/tender and pleuritic. trop 0.9 initially, nonspecific ecg changes vs prior. -sx's NOT SUSPICIOUS FOR ACS--? PE (would explain also the acutely increased BNP despite no chf on exam and clear lungs on cxr) -presented with troponin of 0.9, nl CK. trending down since. missed event? -given ASA 162 in ER, repeat 162 now -started UFH (d/w'd barrie THORNE in ER who will start it now)--this will cover her for PE as well as ACS - LE venous dopplers --> neg for dvt. -will plan to do CTA or V/Q--creat 1.5, was 1.9 few wks ago. will start IVF as she is not in heart failure. asked pulmonary to see to comment on whether can wait till tomorrow's creatinine for ? CTA tomorrow (given clinically stable) vs V/Q tomorrow or today -started lopressor 25 bid -not on statin at home--started low dose here. - 11/26: echo without rwma. plan for V-Q scan. If no PE then will need to consider ischemic work up. acute diast chf: -BNP 2800, from 90 in 11/04 -likely acute chf sec to acute myocardial ischemia. s/p IVF for MICHAEL. - 11/26 cr back to baseline will stop ivf. MICHAEL on CKD: -per dr hathaway, pt creat at baseline (09/04) was 1.3; -was up to 1.9 last month in ER, 1.5. Now back to baseline 1.3. stopping ivf as mentinoed above. HTN: -bp not controlled 10/05 in office--hydral incr'd (50 bid) -reasonably controlled here DM: -per pmd
[2016-11-26] MEDS ORDERED: morphine CARPU-JECT 2 MG/1 ML DISP.SYRIN IVPUSH PRN (12:44)
[2016-11-26] MEDS: HEPARIN - 25,000 UNIT in SODIUM CHLORIDE 495 ML IV SCH (13:00)
--- NOTE | 2016-11-26 13:10 | PN ---
Progress Note, Physician History of Present Illness: pulmonary alert,c/o cp + reproducible,+sob - Current Medication List Current Medications: Active Medications Acetaminophen (Tylenol -) 650 mg PO Q6H PRN PRN Reason: FEVER OR PAIN Last Admin: 11/26/16 04:12 Dose: 650 mg Aspirin (Ecotrin -) 325 mg PO DAILY [facility] Last Admin: 11/26/16 09:21 Dose: 325 mg Atorvastatin Calcium (Lipitor -) 10 mg PO HS [facility] Last Admin: 11/25/16 23:46 Dose: Not Given Cholecalciferol (Vitamin D3 -) 1,000 unit PO DAILY [facility] Last Admin: 11/26/16 09:21 Dose: 1,000 unit Heparin Sodium (Porcine) (Heparin -) 1,000 unit IVPUSH PRN PRN PRN Reason: Heparin Heparin Sodium (Porcine) (Heparin -) 5,000 unit IVPUSH PRN PRN PRN Reason: Heparin Hydralazine HCl (Apresoline -) 50 mg PO BID [facility] Last Admin: 11/26/16 09:21 Dose: 50 mg Heparin Sodium (Porcine) 25, (000 unit/ Sodium Chloride) 500 mls @ 20 mls/hr IV TITR TERI; 1,000 UNIT/HR PRN Reason: Protocol Last Admin: 11/25/16 13:10 Dose: 20 mls/hr Insulin Aspart (Novolog Vial Sliding Scale -) 1 vial SQ TIDAC [facility] PRN Reason: Protocol Last Admin: 11/26/16 06:55 Dose: Not Given Insulin Detemir (Levemir Vial) 5 units SQ HS [facility] Last Admin: 11/25/16 23:46 Dose: Not Given Losartan Potassium (Cozaar -) 100 mg PO DAILY [facility] Last Admin: 11/26/16 09:21 Dose: 100 mg Metoprolol Tartrate (Lopressor -) 25 mg PO BID [facility] Last Admin: 11/26/16 09:22 Dose: 25 mg Morphine Sulfate (Morphine Injection -) 1 mg IVPUSH Q4H PRN PRN Reason: PAIN - Objective Vital Signs: Vital Signs Temperature 98.2 F 11/26/16 10:00 Pulse Rate 73 11/26/16 10:00 Respiratory Rate 18 11/26/16 10:00 Blood Pressure 123/70 11/26/16 10:00 O2 Sat by Pulse Oximetry (%) 96 11/26/16 09:00 Constitutional: Yes: Well Nourished, Calm Eyes: Yes: WNL Neck: Yes: WNL Cardiovascular: Yes: Regular Rate and Rhythm, S1, S2 Respiratory: Yes: Diminished Gastrointestinal: Yes: Normal Bowel Sounds, Soft Extremities: Yes: WNL Edema: No Labs: CBC, BMP 11/26/16 05:35 INR, PTT INR 1.02 (0.82-1.09) 11/25/16 06:15 Assessment/Plan Problem List - Problems (1) NSTEMI (non-ST elevated myocardial infarction) Code(s): I21.4 - NON-ST ELEVATION (NSTEMI) MYOCARDIAL INFARCTION (2) Pleuritic chest pain Code(s): R07.81 - PLEURODYNIA LIKE;Y MUSCULOSKELETAL (3) Hypertension Code(s): I10 - ESSENTIAL (PRIMARY) HYPERTENSION Assessment/Plan PLAN: Agree with IV Heparin for now Low clinical suspicion of VTE, but given her atypical presentation -> would R/O PE. As her CXR is essentially normal O2 as needed OSAS workup after discharge IVF DR COLE
--- NOTE | 2016-11-26 16:19 | CON.NEP ---
Consult Consult Specialty:: Nephrology (Rhys/Mauricio) Referred by:: Dr. Robertson Reason for Consultation:: CKD, Contrast Nephropathy Risk Stratification - History of Present Illness Chief Complaint: Chest pain History of Present Illness: This is a 86 year old woman with PMhx of CKD stage 3, Hypertension, CVA with left sided weakness, DM who presented with right sided chest pain with radiation to the back with Cr of 1.3. Pt also found to have Troponin of 0.97 on presentation. Pt continues to have pain with deep respiration. Pt is being r/o for PE, s/p NM VQ scan. 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 Cardio/Vascular: Yes: HTN Pulmonary: No: Asthma, COPD, O2 Dependent, Previously Intubated, Pulmonary Embolus Renal/: Yes: Renal Inusuff - Alcohol/Substance Use Hx Alcohol Use: No - Smoking History Smoking history: Never smoked Aproximately how many cigarettes per day: 0 Home Medications - Allergies Allergies/Adverse Reactions: Allergies Allergy/AdvReac Type Severity Reaction Status Date / Time Sulfa (Sulfonamide Allergy Intermediate Hives Verified 11/25/16 05:30 Antibiotics) - Home Medications Home Medications: Ambulatory Orders Carvedilol 6.25 mg PO BID tablet 03/09/14 Cholecalciferol (Vitamin D3) [Vitamin D] 1,000 unit PO DAILY 03/09/14 Losartan Potassium 100 mg PO DAILY 03/09/14 Aspirin [Ecotrin] 325 mg PO DAILY 10/28/16 Glipizide Xl [Glucotrol Xl -] 2.5 mg PO DAILY 10/28/16 Hydralazine HCl 50 mg PO BID 10/28/16 Nifedipine ER [Procardia Xl -] 30 mg PO DAILY 11/25/16 Family Disease History - Family Disease History Family History: Unremarkable Review of Systems - Review of Systems Constitutional: reports: No Symptoms Eyes: reports: No Symptoms HENT: reports: No Symptoms Neck: reports: No Symptoms Cardiovascular: reports: Chest Pain, Shortness of Breath. denies: Edema, Palpitations Respiratory: reports: SOB, SOB on Exertion. denies: Exercise Intolerance, Hemoptysis, Orthopnea Gastrointestinal: reports: No Symptoms Genitourinary: reports: No Symptoms Breasts: reports: No Symptoms Reported Musculoskeletal: reports: No Symptoms Integumentary: reports: No Symptoms Neurological: reports: No Symptoms Endocrine: reports: No Symptoms Hematology/Lymphatic: reports: No Symptoms Psychiatric: reports: No Symptoms Nephrology Consult - Height Height: 5 ft 8 in - Weight Weight: 190 lb 0.016 oz - BMI Body Mass Index (BMI): 28.8 - Lab Results CBC,BMP: CBC, BMP 11/26/16 05:35 Anion Gap: Anion Gap Anion Gap 10 (8-16) 11/26/16 05:35 - Imaging Chest X-ray: Report Reviewed - Physical Examination Vital Signs: Vital Signs Temperature 98.2 F 11/26/16 10:00 Pulse Rate 73 11/26/16 10:00 Respiratory Rate 18 11/26/16 10:00 Blood Pressure 123/70 11/26/16 10:00 O2 Sat by Pulse Oximetry (%) 96 11/26/16 09:00 Constitutional: Yes: Well Nourished, No Distress, Calm Eyes: Yes: Conjunctiva Clear HENT: Yes: Atraumatic, Normocephalic Neck: Yes: Supple, Trachea Midline Cardiovascular: Yes: Regular Rate and Rhythm Respiratory: Yes: Regular, CTA Bilaterally. No: Rales, Rhonchi, SOB Gastrointestinal: Yes: Normal Bowel Sounds, Soft Renal/: No: Anuria, Bladder Distention, CVA Tenderness - Left, CVA Tenderness - Right, Mcadams Present Edema: No Problem List - Problems (1) CKD (chronic kidney disease) Code(s): N18.9 - CHRONIC KIDNEY DISEASE, UNSPECIFIED (2) NSTEMI (non-ST elevated myocardial infarction) Code(s): I21.4 - NON-ST ELEVATION (NSTEMI) MYOCARDIAL INFARCTION (3) Pleuritic chest pain Code(s): R07.81 - PLEURODYNIA (4) Hypertension Code(s): I10 - ESSENTIAL (PRIMARY) HYPERTENSION Assessment/Plan 86 year old woman with PMhx of CKD stage 3, Hypertension, CVA with left sided weakness, DM who presented with right sided chest pain with radiation to the back with Cr of 1.3. #Contrast Nephropathy risk stratification Risk of LEE (> 50% rise in Cr) with contrast is 26% and risk for dialysis dependence is 1.1% This is based on the LEE risk calculator developed by Leif castellanos al and published in the Journal of the [employer] 2004 Pt was made aware of the risks and expressed understanding can attempt to mitigate risk with IVF and Mucomyst if contrast exposure is still needed #CKD stage 3 Renal function stable at this time Continue Losartan Trend BUN/Cr #Atypical chest pain/NSTEMI s/p VQ scan, report pending Cardiology follow up #Hypertension Continue Hydralazine, Metoprolol, Losartan BP is at goal change losatan to evening dosing Current Medications Acetaminophen (Tylenol -) 650 mg PO Q6H PRN PRN Reason: FEVER OR PAIN Last Admin: 11/26/16 04:12 Dose: 650 mg Aspirin (Ecotrin -) 325 mg PO DAILY [facility] Last Admin: 11/26/16 09:21 Dose: 325 mg Atorvastatin Calcium (Lipitor -) 10 mg PO HS [facility] Last Admin: 11/25/16 23:46 Dose: Not Given Cholecalciferol (Vitamin D3 -) 1,000 unit PO DAILY [facility] Last Admin: 11/26/16 09:21 Dose: 1,000 unit Heparin Sodium (Porcine) (Heparin -) 1,000 unit IVPUSH PRN PRN PRN Reason: Heparin Heparin Sodium (Porcine) (Heparin -) 5,000 unit IVPUSH PRN PRN PRN Reason: Heparin Hydralazine HCl (Apresoline -) 50 mg PO BID [facility] Last Admin: 11/26/16 09:21 Dose: 50 mg Heparin Sodium (Porcine) 25, (000 unit/ Sodium Chloride) 500 mls @ 20 mls/hr IV TITR TERI; 1,000 UNIT/HR PRN Reason: Protocol Last Admin: 11/26/16 13:00 Dose: 22 mls/hr Insulin Aspart (Novolog Vial Sliding Scale -) 1 vial SQ TIDAC [facility] PRN Reason: Protocol Last Admin: 11/26/16 16:02 Dose: 2 units Insulin Detemir (Levemir Vial) 5 units SQ HS [facility] Last Admin: 11/25/16 23:46 Dose: Not Given Losartan Potassium (Cozaar -) 100 mg PO DAILY [facility] Last Admin: 11/26/16 09:21 Dose: 100 mg Metoprolol Tartrate (Lopressor -) 25 mg PO BID [facility] Last Admin: 11/26/16 09:22 Dose: 25 mg Morphine Sulfate (Morphine Injection -) 1 mg IVPUSH Q4H PRN PRN Reason: PAIN
[2016-11-26] MEDS ORDERED: morphine CARPU-JECT 4 MG/1 ML DISP.SYRIN ONE (17:07)
[2016-11-26] MEDS: ATORVASTATIN CA 10 MG TABLET (FP) PO SCH (21:56)
[2016-11-26] MEDS: INSULIN DETEMIR 100 UNITS/ML MDV SQ SCH (21:56)
[2016-11-27] MEDS: INSULIN SLIDING SCALE (NOVOLOG) 1 VIAL SQ SCH ×3 (06:46→16:53)
[2016-11-27 07:32] LABS: MCH 28.7 pg (25.7-33.7); MCHC 33.4 g/dl (32.0-36.0); MEAN CELL VOLUME 85.9 fl (80-96); MEAN PLT VOLUME 8.1 fl (7.5-11.1); PLATELET COUNT 213 K/MM3 (134-434); RDW 14.4 % (11.6-15.6); WHITE BLOOD COUNT 8.4 K/mm3 (4.0-10.0)
[2016-11-27 08:40] LABS: ANION GAP 8 (8-16); CALCIUM 8.6 mg/dL (8.5-10.1); CO2 23 mmol/L (21-32); CREATININE 1.4 mg/dL (0.55-1.02); GLUCOSE,RANDOM 107 mg/dL (74-106); MAGNESIUM 2.2 mg/dL (1.8-2.4)
[2016-11-27] MEDS: METOPROLOL TARTRATE 25 MG TABLET (FP) PO SCH ×2 (09:46→22:26)
[2016-11-27] MEDS: hydrALAZINE HCL 50 MG TABLET (FP) PO SCH ×2 (09:46→22:26)
[2016-11-27] MEDS: ASPIRIN 325 MG ENTERIC COATED TABLET (FP) PO SCH (09:46)
[2016-11-27] MEDS: CHOLECALCIFEROL (VITAMIN D3) 1,000 UNIT TABLET (FP) PO SCH (09:46)
[2016-11-27] MEDS: HEPARIN - 25,000 UNIT in SODIUM CHLORIDE 495 ML IV SCH ×3 (10:14→18:53)
--- NOTE | 2016-11-27 10:32 | PN ---
Progress Note, Physician History of Present Illness: PULMONARY ALERT,FEELING BETTER,LESS CP - Current Medication List Current Medications: Active Medications Acetaminophen (Tylenol -) 650 mg PO Q6H PRN PRN Reason: FEVER OR PAIN Last Admin: 11/26/16 04:12 Dose: 650 mg Aspirin (Ecotrin -) 325 mg PO DAILY [facility] Last Admin: 11/27/16 09:46 Dose: 325 mg Atorvastatin Calcium (Lipitor -) 10 mg PO HS [facility] Last Admin: 11/26/16 21:56 Dose: 10 mg Cholecalciferol (Vitamin D3 -) 1,000 unit PO DAILY [facility] Last Admin: 11/27/16 09:46 Dose: 1,000 unit Heparin Sodium (Porcine) (Heparin -) 1,000 unit IVPUSH PRN PRN PRN Reason: Heparin Heparin Sodium (Porcine) (Heparin -) 5,000 unit IVPUSH PRN PRN PRN Reason: Heparin Last Admin: 11/26/16 21:00 Dose: 5,000 unit Hydralazine HCl (Apresoline -) 50 mg PO BID [facility] Last Admin: 11/27/16 09:46 Dose: 50 mg Heparin Sodium (Porcine) 25, (000 unit/ Sodium Chloride) 500 mls @ 20 mls/hr IV TITR [facility]; 1,000 UNIT/HR PRN Reason: Protocol Last Titration: 11/26/16 21:00 Dose: 1,250 unit/hr Insulin Aspart (Novolog Vial Sliding Scale -) 1 vial SQ TIDAC [facility] PRN Reason: Protocol Last Admin: 11/27/16 06:46 Dose: Not Given Insulin Detemir (Levemir Vial) 5 units SQ [facility] Last Admin: 11/26/16 21:56 Dose: Not Given Losartan Potassium (Cozaar -) 100 mg PO [facility] Metoprolol Tartrate (Lopressor -) 25 mg PO BID [facility] Last Admin: 11/27/16 09:46 Dose: 25 mg Morphine Sulfate (Morphine Injection -) 1 mg IVPUSH Q4H PRN PRN Reason: PAIN Last Admin: 11/26/16 17:26 Dose: 1 mg - Objective Vital Signs: Vital Signs Temperature 99 F 11/27/16 06:00 Pulse Rate 69 11/27/16 06:00 Respiratory Rate 18 11/27/16 06:00 Blood Pressure 129/64 11/27/16 06:00 O2 Sat by Pulse Oximetry (%) 95 11/26/16 21:00 Constitutional: Yes: Well Nourished, Calm Eyes: Yes: WNL HENT: Yes: WNL Neck: Yes: WNL Cardiovascular: Yes: Regular Rate and Rhythm, S1, S2 Respiratory: Yes: Diminished Gastrointestinal: Yes: Normal Bowel Sounds, Soft Extremities: Yes: WNL Edema: No Labs: CBC, BMP 11/27/16 05:48 11/27/16 05:48 INR, PTT INR 1.02 (0.82-1.09) 11/25/16 06:15 Assessment/Plan Problem List - Problems (1) NSTEMI (non-ST elevated myocardial infarction) Code(s): I21.4 - NON-ST ELEVATION (NSTEMI) MYOCARDIAL INFARCTION (2) Pleuritic chest pain Code(s): R07.81 - PLEURODYNIA LIKE;Y MUSCULOSKELETAL (3) Hypertension Code(s): I10 - ESSENTIAL (PRIMARY) HYPERTENSION Assessment/Plan PLAN: IV Heparin pend results of lung scan Low clinical suspicion of VTE, but given her atypical presentation -> would R/O PE. As her CXR is essentially normal O2 as needed OSAS workup after discharge check v/q DR COLE
--- NOTE | 2016-11-27 11:03 | PN ---
Progress Note (short form) - Note Progress Note: s: no palps dizzy, +mild sob, +pleuritic pain in right chest/right flank Current Medications Generic Name Dose Route Start Last Admin Trade Name Freq PRN Reason Stop Dose Admin Acetaminophen 650 mg 11/25/16 21:25 11/26/16 04:12 Tylenol - PO 650 mg Q6H PRN Administration FEVER OR PAIN Aspirin 325 mg 11/26/16 10:00 11/27/16 09:46 Ecotrin - PO 325 mg DAILY [facility] Administration Atorvastatin Calcium 10 mg 11/25/16 22:00 11/26/16 21:56 Lipitor - PO 10 mg HS [facility] Administration Cholecalciferol 1,000 unit 11/26/16 10:00 11/27/16 09:46 Vitamin D3 - PO 1,000 unit DAILY [facility] Administration Heparin Sodium (Porcine) 1,000 unit 11/25/16 11:35 Heparin - IVPUSH PRN PRN Heparin Heparin Sodium (Porcine) 5,000 unit 11/25/16 11:35 11/26/16 21:00 Heparin - IVPUSH 5,000 unit PRN PRN Administration Heparin Hydralazine HCl 50 mg 11/25/16 22:00 11/27/16 09:46 Apresoline - PO 50 mg BID [facility] Administration Heparin Sodium (Porcine) 25, 500 mls @ 20 mls/hr 11/25/16 11:45 11/26/16 21:00 000 unit/ Sodium Chloride IV 1,250 unit/hr TITR [facility] Titration Protocol 1,000 UNIT/HR Insulin Aspart 1 vial 11/26/16 07:00 11/27/16 06:46 Novolog Vial Sliding Scale - SQ Not Given TIDAC [facility] Protocol Insulin Detemir 5 units 11/25/16 22:00 11/26/16 21:56 Levemir Vial SQ Not Given HS [facility] Losartan Potassium 100 mg 11/27/16 22:00 Cozaar - PO HS [facility] Metoprolol Tartrate 25 mg 11/25/16 11:45 11/27/16 09:46 Lopressor - PO 25 mg BID [facility] Administration Morphine Sulfate 1 mg 11/26/16 12:44 11/26/16 17:26 Morphine Injection - IVPUSH 1 mg Q4H PRN Administration PAIN Vital Signs Period Temp Pulse Resp BP Sys/Peacock Pulse Ox Last 24 Hr 98.0 F-99 F 64-72 17-20 110-129/55-64 95 Constitutional: Yes: Well Nourished, No Distress Eyes: No: Sclera Icterus Respiratory: Yes: CTA Bilaterally. No: Accessory Muscle Use, Rales, Wheezes Gastrointestinal: Yes: Normal Bowel Sounds. No: Distention, Hepatomegaly, Palpable Mass, Tenderness Cardiovascular: Yes: Regular Rate and Rhythm JVD: No Heart Sounds: Yes: S1, S2. No: Gallop Murmur: No: Systolic Murmur, Diastolic Murmur Extremities: No: Cold, Cyanosis Edema: No (no induratn/cord/tender) Integumentary: No: Jaundice diaphoresis Neurological: Yes: Alert, Oriented (x3) Psychiatric: No: Agitated - Other Data Labs, Other Data: CBC, BMP 11/27/16 05:48 11/27/16 05:48 MIBI 10/05: no ischemia or scar, hyper EF Echo 11/2016: nl lv/rv. grade 1 diastolic dysfunction. 1+ lae, 1+ mr, mod TR. rvsp 30-40. Echo 05/07: nl LV, nl RV; mild AI CXR (gitig review): clear lungs/pleura, no vasc redistribution, doubt small R effusion EKG 11/25: NSR, normal axis/intervals; no path q's; nonsp TWIs v2/v3 and flat T's in V4--new vs prior (10/28/16) tele: sr a/p: 86 yo with htn, HL, niddm, cva with residual right sided weakness, CKD ( bline cr 1.3), COPD, O2 Dependent, prior PE, p/w cp and troponin elevation of 0.9. atypical (right sided, pleuritic) CP, NSTEMI: -chronic sob, with prior noninvasive CV w/u negative including recently with repeat MPI (10/05) and echo (05/07)--sx's not changed of late -now with 2d of R chest pain near axillary line to back, positional/tender and pleuritic. trop 0.9 initially, nonspecific ecg changes vs prior. -sx's NOT SUSPICIOUS FOR ACS--? PE (would explain also the acutely increased BNP despite no chf on exam and clear lungs on cxr) -presented with troponin of 0.9, nl CK. trending down since. missed event? -given ASA 162 in ER, repeat 162 now -started UFH (d/w'd barrie THORNE in ER who will start it now)--this will cover her for PE as well as ACS - LE venous dopplers --> neg for dvt. -will plan to do CTA or V/Q--creat 1.5, was 1.9 few wks ago. will start IVF as she is not in heart failure. asked pulmonary to see to comment on whether can wait till tomorrow's creatinine for ? CTA tomorrow (given clinically stable) vs V/Q tomorrow or today -started lopressor 25 bid -not on statin at home--started low dose here. - 11/27: echo without rwma. V-Q scan results pending. If no PE then will need to consider ischemic work up (ie cardiac cath as pt already had recent normal nuclear stress test). acute diast chf: -BNP 2800, from 90 in 11/04 -likely acute chf sec to acute myocardial ischemia. s/p IVF for MICHAEL. -cr back to baseline after ivfs MICHAEL on CKD: -per dr hathaway, pt creat at baseline (09/04) was 1.3; -was up to 1.9 last month in ER, 1.5. Now back to baseline after ivfs HTN: -reasonably controlled here
--- NOTE | 2016-11-27 11:31 | PN ---
Progress Note, Physician Chief Complaint: pain feels better more on palpation - Current Medication List Current Medications: Active Medications Acetaminophen (Tylenol -) 650 mg PO Q6H PRN PRN Reason: FEVER OR PAIN Last Admin: 11/26/16 04:12 Dose: 650 mg Aspirin (Ecotrin -) 325 mg PO DAILY [facility] Last Admin: 11/27/16 09:46 Dose: 325 mg Atorvastatin Calcium (Lipitor -) 10 mg PO HS [facility] Last Admin: 11/26/16 21:56 Dose: 10 mg Cholecalciferol (Vitamin D3 -) 1,000 unit PO DAILY [facility]S [facility] Last Admin: 11/27/16 09:46 Dose: 1,000 unit Heparin Sodium (Porcine) (Heparin -) 1,000 unit IVPUSH PRN PRN PRN Reason: Heparin Heparin Sodium (Porcine) (Heparin -) 5,000 unit IVPUSH PRN PRN PRN Reason: Heparin Last Admin: 11/26/16 21:00 Dose: 5,000 unit Hydralazine HCl (Apresoline -) 50 mg PO BID [facility]S [facility] Last Admin: 11/27/16 09:46 Dose: 50 mg Heparin Sodium (Porcine) 25, (000 unit/ Sodium Chloride) 500 mls @ 20 mls/hr IV TITR [facility]; 1,000 UNIT/HR PRN Reason: Protocol Last Titration: 11/26/16 21:00 Dose: 1,250 unit/hr Insulin Aspart (Novolog Vial Sliding Scale -) 1 vial SQ [facility] PRN Reason: Protocol Last Admin: 11/27/16 06:46 Dose: Not Given Insulin Detemir (Levemir Vial) 5 units SQ HS [facility] Last Admin: 11/26/16 21:56 Dose: Not Given Losartan Potassium (Cozaar -) 100 mg PO [facility] Metoprolol Tartrate (Lopressor -) 25 mg PO BID [facility] Last Admin: 11/27/16 09:46 Dose: 25 mg Morphine Sulfate (Morphine Injection -) 1 mg IVPUSH Q4H PRN PRN Reason: PAIN Last Admin: 11/26/16 17:26 Dose: 1 mg - Objective Vital Signs: Vital Signs Temperature 99 F 11/27/16 06:00 Pulse Rate 69 11/27/16 06:00 Respiratory Rate 18 11/27/16 06:00 Blood Pressure 129/64 11/27/16 06:00 O2 Sat by Pulse Oximetry (%) 95 11/26/16 21:00 Constitutional: Yes: No Distress Cardiovascular: Yes: Regular Rate and Rhythm Respiratory: Yes: CTA Bilaterally Gastrointestinal: Yes: Normal Bowel Sounds, Soft. No: Tenderness Edema: Yes Edema: LLE: Trace, RLE: Trace Labs: CBC, BMP 11/27/16 05:48 11/27/16 05:48 INR, PTT INR 1.02 (0.82-1.09) 11/25/16 06:15 Problem List - Problems (1) NSTEMI (non-ST elevated myocardial infarction) Code(s): I21.4 - NON-ST ELEVATION (NSTEMI) MYOCARDIAL INFARCTION (2) Pleuritic chest pain Code(s): R07.81 - PLEURODYNIA (3) Hypertension Code(s): I10 - ESSENTIAL (PRIMARY) HYPERTENSION (4) CKD (chronic kidney disease) Code(s): N18.9 - CHRONIC KIDNEY DISEASE, UNSPECIFIED Assessment/Plan PLAN V/Q scan negative for PE on Heparin drip BP controlled IV fluids may need to go for cardiac cath per Cardiology pain may be muscular pain meds as needed
[2016-11-27] MEDS: ACETAMINOPHEN 325 MG TABLET (FP) PO PRN (13:13)
--- NOTE | 2016-11-27 15:51 | PN ---
Progress Note (short form) - Note Progress Note: Renal Follow up for CKD Pt seen and examined at the bedside feels better, right sided chest pain is improved no SOB, Abd pain, N/V/D Vital Signs Temperature 98.4 F 11/27/16 14:00 Pulse Rate 74 11/27/16 14:00 Respiratory Rate 18 11/27/16 10:00 Blood Pressure 131/60 11/27/16 14:00 O2 Sat by Pulse Oximetry (%) 95 11/26/16 21:00 Intake & Output 11/24/16 11/25/16 11/26/16 11/27/16 23:59 23:59 23:59 23:59 Intake Total 130 1180 1049 Balance 130 1180 1049 Weight 190 lb 0.016 oz 190 lb 0.016 oz Gen: NAD, awake and alert CVS: RRR, No M/R Lungs:CTA, no rales or wheeze Abd: soft NT/ND Ext: No edema, clubbing or cyanosis CBC, BMP 11/27/16 05:48 11/27/16 05:48 Laboratory Tests 11/27/16 05:48 Calcium 8.6 Phosphorus 3.0 Magnesium 2.2 Current Medications Acetaminophen (Tylenol -) 650 mg PO Q6H PRN PRN Reason: FEVER OR PAIN Last Admin: 11/27/16 13:13 Dose: 650 mg Aspirin (Ecotrin -) 325 mg PO DAILY [facility] Last Admin: 11/27/16 09:46 Dose: 325 mg Atorvastatin Calcium (Lipitor -) 10 mg PO HS [facility] Last Admin: 11/26/16 21:56 Dose: 10 mg Cholecalciferol (Vitamin D3 -) 1,000 unit PO DAILY [facility] Last Admin: 11/27/16 09:46 Dose: 1,000 unit Heparin Sodium (Porcine) (Heparin -) 1,000 unit IVPUSH PRN PRN PRN Reason: Heparin Heparin Sodium (Porcine) (Heparin -) 5,000 unit IVPUSH PRN PRN PRN Reason: Heparin Last Admin: 11/26/16 21:00 Dose: 5,000 unit Hydralazine HCl (Apresoline -) 50 mg PO BID [facility] Last Admin: 11/27/16 09:46 Dose: 50 mg Heparin Sodium (Porcine) 25, (000 unit/ Sodium Chloride) 500 mls @ 20 mls/hr IV TITR [facility]; 1,000 UNIT/HR PRN Reason: Protocol Last Admin: 11/27/16 13:14 Dose: 0.38 mls/hr Insulin Aspart (Novolog Vial Sliding Scale -) 1 vial SQ [facility] PRN Reason: Protocol Last Admin: 11/27/16 12:55 Dose: Not Given Insulin Detemir (Levemir Vial) 5 units SQ HS [facility] Last Admin: 11/26/16 21:56 Dose: Not Given Losartan Potassium (Cozaar -) 100 mg PO HS [facility] Metoprolol Tartrate (Lopressor -) 25 mg PO BID [facility] Last Admin: 11/27/16 09:46 Dose: 25 mg Morphine Sulfate (Morphine Injection -) 1 mg IVPUSH Q4H PRN PRN Reason: PAIN Last Admin: 11/26/16 17:26 Dose: 1 mg A/P 86 year old woman with PMhx of CKD stage 3, Hypertension, CVA with left sided weakness, DM who presented with right sided chest pain with radiation to the back with Cr of 1.3. #CKD stage 3 Renal function remains stable LEE risk remains the same as discussed yesterday #Contrast Nephropathy risk stratification Risk of LEE (> 50% rise in Cr) with contrast is 26% and risk for dialysis dependence is 1.1% #Atypical chest pain/NSTEMI s/p VQ scan report posted but i could not open, pt states that it was negative Cardiology follow up for possible cardiac cath #Hypertension Continue Hydralazine, Metoprolol, Losartan BP is at goal Thank you Clif Martínez DO Problem List - Problems (1) CKD (chronic kidney disease) Code(s): N18.9 - CHRONIC KIDNEY DISEASE, UNSPECIFIED (2) NSTEMI (non-ST elevated myocardial infarction) Code(s): I21.4 - NON-ST ELEVATION (NSTEMI) MYOCARDIAL INFARCTION (3) Pleuritic chest pain Code(s): R07.81 - PLEURODYNIA (4) Hypertension Code(s): I10 - ESSENTIAL (PRIMARY) HYPERTENSION
[2016-11-27] MEDS: INSULIN DETEMIR 100 UNITS/ML MDV SQ SCH (22:19)
[2016-11-27] MEDS: ATORVASTATIN CA 10 MG TABLET (FP) PO SCH (22:26)
[2016-11-27] MEDS: LOSARTAN POTASSIUM 50 MG TABLET (FP) PO SCH (22:26)
[2016-11-28] MEDS: INSULIN SLIDING SCALE (NOVOLOG) 1 VIAL SQ SCH ×3 (06:31→17:20)
[2016-11-28 08:05] LABS: MCH 28.9 pg (25.7-33.7); MCHC 33.8 g/dl (32.0-36.0); MEAN CELL VOLUME 85.4 fl (80-96); MEAN PLT VOLUME 8.1 fl (7.5-11.1); PLATELET COUNT 226 K/MM3 (134-434); RDW 14.3 % (11.6-15.6); WHITE BLOOD COUNT 8.1 K/mm3 (4.0-10.0)
[2016-11-28 08:43] LABS: ANION GAP 8 (8-16); CALCIUM 8.9 mg/dL (8.5-10.1); CO2 23 mmol/L (21-32); CREATININE 1.4 mg/dL (0.55-1.02); GLUCOSE,RANDOM 106 mg/dL (74-106)
[2016-11-28] MEDS: ASPIRIN 325 MG ENTERIC COATED TABLET (FP) PO SCH (09:40)
[2016-11-28] MEDS: hydrALAZINE HCL 50 MG TABLET (FP) PO SCH ×2 (09:41→21:39)
[2016-11-28] MEDS: CHOLECALCIFEROL (VITAMIN D3) 1,000 UNIT TABLET (FP) PO SCH (09:41)
[2016-11-28] MEDS: METOPROLOL TARTRATE 25 MG TABLET (FP) PO SCH ×2 (09:41→21:40)
--- NOTE | 2016-11-28 10:10 | PN ---
Progress Note (short form) - Note Progress Note: Renal Follow up for CKD Pt seen and examined at the bedside reports CP with deep inspiration has a mid cough, rhinorrea no SOB, N/V/D Vital Signs Temperature 98.6 F 11/28/16 06:00 Pulse Rate 82 11/28/16 06:00 Respiratory Rate 20 11/28/16 06:00 Blood Pressure 138/54 11/28/16 06:00 O2 Sat by Pulse Oximetry (%) 95 11/26/16 21:00 Intake & Output 11/25/16 11/26/16 11/27/16 11/28/16 23:59 23:59 23:59 23:59 Intake Total 130 1180 1561 252 Balance 130 1180 1561 252 Weight 190 lb 0.016 oz 190 lb 0.016 oz Gen: NAD, awake and alert CVS: RRR, No M/R Lungs:CTA, no rales or wheeze Abd: soft NT/ND Ext: No edema, clubbing or cyanosis CBC, BMP 11/28/16 06:05 11/28/16 06:05 Laboratory Tests 11/28/16 06:05 Calcium 8.9 Current Medications Acetaminophen (Tylenol -) 650 mg PO Q6H PRN PRN Reason: FEVER OR PAIN Last Admin: 11/27/16 13:13 Dose: 650 mg Acetylcysteine (Mucomyst 20 Oral / Inh Use Only*) 1,200 mg PO Q12H [facility] Stop: 11/29/16 22:01 Aspirin (Ecotrin -) 325 mg PO DAILY [facility] Last Admin: 11/28/16 09:40 Dose: 325 mg Atorvastatin Calcium (Lipitor -) 10 mg PO HS [facility] Last Admin: 11/27/16 22:26 Dose: 10 mg Cholecalciferol (Vitamin D3 -) 1,000 unit PO DAILY [facility] Last Admin: 11/28/16 09:41 Dose: 1,000 unit Heparin Sodium (Porcine) (Heparin -) 1,000 unit IVPUSH PRN PRN PRN Reason: Heparin Heparin Sodium (Porcine) (Heparin -) 5,000 unit IVPUSH PRN PRN PRN Reason: Heparin Last Admin: 11/26/16 21:00 Dose: 5,000 unit Hydralazine HCl (Apresoline -) 50 mg PO BID [facility] Last Admin: 11/28/16 09:41 Dose: 50 mg Heparin Sodium (Porcine) 25, (000 unit/ Sodium Chloride) 500 mls @ 20 mls/hr IV TITR [facility]; 1,000 UNIT/HR PRN Reason: Protocol Last Admin: 11/27/16 18:53 Dose: 21 mls/hr Sodium Chloride (Normal Saline -) 1,000 mls @ 83 mls/hr IV ASDIR [facility] Stop: 11/29/16 21:14 Insulin Aspart (Novolog Vial Sliding Scale -) 1 vial SQ [facility]IDAC [facility] PRN Reason: Protocol Last Admin: 11/28/16 06:31 Dose: Not Given Insulin Detemir (Levemir Vial) 5 units SQ HS [facility] Last Admin: 11/27/16 22:19 Dose: Not Given Losartan Potassium (Cozaar -) 100 mg PO HS [facility] Last Admin: 11/27/16 22:26 Dose: 100 mg Metoprolol Tartrate (Lopressor -) 25 mg PO BID [facility] Last Admin: 11/28/16 09:41 Dose: 25 mg Morphine Sulfate (Morphine Injection -) 1 mg IVPUSH Q4H PRN PRN Reason: PAIN Last Admin: 11/26/16 17:26 Dose: 1 mg A/P 86 year old woman with PMhx of CKD stage 3, Hypertension, CVA with left sided weakness, DM who presented with right sided chest pain with radiation to the back with Cr of 1.3. #CKD stage 3 Renal function stable Dose allmeds for Cr Cl less then 50 #Contrast Nephropathy risk stratification and prophylaxis Risk of LEE (> 50% rise in Cr) with contrast is 26% and risk for dialysis dependence is 1.1% risk of LEE once again reinforced with the patient and she expressed understanding will start NS at 83cc per hour x 36 hours, start Mucomyst 1200mg PO BID x 4 doses can plan for CTA in the AM after 24 hours of IVF # Atypical chest pain/NSTEMI V/Q scan was indeterminate, planning for CTA as per Caridiology #Hypertension Continue Hydralazine, Metoprolol, Losartan BP is at goal Thank you Clif Martínez DO Problem List - Problems (1) CKD (chronic kidney disease) Code(s): N18.9 - CHRONIC KIDNEY DISEASE, UNSPECIFIED (2) NSTEMI (non-ST elevated myocardial infarction) Code(s): I21.4 - NON-ST ELEVATION (NSTEMI) MYOCARDIAL INFARCTION (3) Pleuritic chest pain Code(s): R07.81 - PLEURODYNIA (4) Hypertension Code(s): I10 - ESSENTIAL (PRIMARY) HYPERTENSION
[2016-11-28] MEDS: HEPARIN - 25,000 UNIT in SODIUM CHLORIDE 495 ML IV SCH (10:20)
--- NOTE | 2016-11-28 10:55 | PN ---
Progress Note (short form) - Note Progress Note: s: no palps dizzy, +mild sob, +pleuritic pain in right chest/right flank Current Medications Generic Name Dose Route Start Last Admin Trade Name Armin PRN Reason Stop Dose Admin Acetaminophen 650 mg 11/25/16 21:25 11/27/16 13:13 Tylenol - PO 650 mg Q6H PRN Administration FEVER OR PAIN Acetylcysteine 1,200 mg 11/28/16 10:00 Mucomyst 20 Oral / Inh Use Only* PO 11/29/16 22:01 Q12H [facility] Aspirin 325 mg 11/26/16 10:00 11/28/16 09:40 Ecotrin - PO 325 mg DAILY [facility] Administration Atorvastatin Calcium 10 mg 11/25/16 22:00 11/27/16 22:26 Lipitor - PO 10 mg HS [facility] Administration Cholecalciferol 1,000 unit 11/26/16 10:00 11/28/16 09:41 Vitamin D3 - PO 1,000 unit DAILY [facility] Administration Heparin Sodium (Porcine) 1,000 unit 11/25/16 11:35 Heparin - IVPUSH PRN PRN Heparin Heparin Sodium (Porcine) 5,000 unit 11/25/16 11:35 11/26/16 21:00 Heparin - IVPUSH 5,000 unit PRN PRN Administration Heparin Hydralazine HCl 50 mg 11/25/16 22:00 11/28/16 09:41 Apresoline - PO 50 mg BID [facility] Administration Heparin Sodium (Porcine) 25, 500 mls @ 20 mls/hr 11/25/16 11:45 11/27/16 18:53 000 unit/ Sodium Chloride IV 21 mls/hr TITR [facility] Administration Protocol 1,000 UNIT/HR Sodium Chloride 1,000 mls @ 83 mls/hr 11/28/16 09:15 Normal Saline - IV 11/29/16 21:14 ASDIR [facility] Insulin Aspart 1 vial 11/26/16 07:00 11/28/16 06:31 Novolog Vial Sliding Scale - SQ Not Given TIDAC [facility] Protocol Insulin Detemir 5 units 11/25/16 22:00 11/27/16 22:19 Levemir Vial SQ Not Given HS [facility] Losartan Potassium 100 mg 11/27/16 22:00 11/27/16 22:26 Cozaar - PO 100 mg HS [facility] Administration Metoprolol Tartrate 25 mg 11/25/16 11:45 11/28/16 09:41 Lopressor - PO 25 mg BID [facility] Administration Morphine Sulfate 1 mg 11/26/16 12:44 11/26/16 17:26 Morphine Injection - IVPUSH 1 mg Q4H PRN Administration PAIN Vital Signs Period Temp Pulse Resp BP Sys/Peacock Pulse Ox Last 24 Hr 97.8 F-98.6 F 65-84 18-20 120-145/54-72 Constitutional: Yes: Well Nourished, No Distress Eyes: No: Sclera Icterus Respiratory: Yes: CTA Bilaterally. No: Accessory Muscle Use, Rales, Wheezes Gastrointestinal: Yes: Normal Bowel Sounds. No: Distention, Hepatomegaly, Palpable Mass, Tenderness Cardiovascular: Yes: Regular Rate and Rhythm JVD: No Heart Sounds: Yes: S1, S2. No: Gallop Murmur: No: Systolic Murmur, Diastolic Murmur Extremities: No: Cold, Cyanosis Edema: No (no induratn/cord/tender) Integumentary: No: Jaundice diaphoresis Neurological: Yes: Alert, Oriented (x3) Psychiatric: No: Agitated - Other Data Labs, Other Data: CBC, BMP 11/28/16 06:05 11/28/16 06:05 MIBI 10/05: no ischemia or scar, hyper EF Echo 11/2016: nl lv/rv. grade 1 diastolic dysfunction. 1+ lae, 1+ mr, mod TR. rvsp 30-40. Echo 05/07: nl LV, nl RV; mild AI CXR (gitig review): clear lungs/pleura, no vasc redistribution, doubt small R effusion EKG 11/25: NSR, normal axis/intervals; no path q's; nonsp TWIs v2/v3 and flat T's in V4--new vs prior (10/28/16) tele: sr a/p: 86 yo with htn, HL, niddm, cva with residual right sided weakness, CKD ( bline cr 1.3), COPD, O2 Dependent, prior PE, p/w cp and troponin elevation of 0.9. atypical (right sided, pleuritic) CP, NSTEMI: -chronic sob, with prior noninvasive CV w/u negative including recently with repeat MPI (10/05) and echo (05/07)--sx's not changed of late -now with 2d of R chest pain near axillary line to back, positional/tender and pleuritic. trop 0.9 initially, nonspecific ecg changes vs prior. -sx's NOT SUSPICIOUS FOR ACS--? PE (would explain also the acutely increased BNP despite no chf on exam and clear lungs on cxr) -presented with troponin of 0.9, nl CK. trending down since. missed event? -given ASA 162 in ER, repeat 162 now -started UFH, this will cover her for PE as well as ACS - LE venous dopplers --> neg for dvt. -started lopressor 25 bid -not on statin at home--started low dose here. - echo without rwma. V-Q scan with indeterminate results but still clinical suspicion for PE so will plan for cta chest now that cr at baseline. D/w renal and will premedicate/hydrate today and order cta for tomorrow AM. If no PE then will need to consider ischemic work up (ie cardiac cath as pt already had recent normal nuclear stress test). acute diast chf: -BNP 2800, from 90 in 11/04 -likely acute chf sec to acute myocardial ischemia. s/p IVF for MICHAEL. -cr back to baseline after ivfs MICHAEL on CKD: -per dr hathaway, pt creat at baseline (09/04) was 1.3; -was up to 1.9 last month in ER, 1.5. Now back to baseline after ivfs HTN: -reasonably controlled here
[2016-11-28] MEDS: SODIUM CHLORIDE 1,000 ML IV SCH (11:16)
--- NOTE | 2016-11-28 11:25 | PN ---
Progress Note, Physician History of Present Illness: pulmonary alert,still c/o R sided cp. v/q scan intermediate probability for PE. - Current Medication List Current Medications: Active Medications Acetaminophen (Tylenol -) 650 mg PO Q6H PRN PRN Reason: FEVER OR PAIN Last Admin: 11/27/16 13:13 Dose: 650 mg Acetylcysteine (Mucomyst 20 Oral / Inh Use Only*) 1,200 mg PO Q12H [facility] Stop: 11/29/16 22:01 Aspirin (Ecotrin -) 325 mg PO DAILY [facility] Last Admin: 11/28/16 09:40 Dose: 325 mg Atorvastatin Calcium (Lipitor -) 10 mg PO HS [facility] Last Admin: 11/27/16 22:26 Dose: 10 mg Cholecalciferol (Vitamin D3 -) 1,000 unit PO DAILY [facility] Last Admin: 11/28/16 09:41 Dose: 1,000 unit Heparin Sodium (Porcine) (Heparin -) 1,000 unit IVPUSH PRN PRN PRN Reason: Heparin Heparin Sodium (Porcine) (Heparin -) 5,000 unit IVPUSH PRN PRN PRN Reason: Heparin Last Admin: 11/26/16 21:00 Dose: 5,000 unit Hydralazine HCl (Apresoline -) 50 mg PO BID [facility] Last Admin: 11/28/16 09:41 Dose: 50 mg Heparin Sodium (Porcine) 25, (000 unit/ Sodium Chloride) 500 mls @ 20 mls/hr IV TITR TERI; 1,000 UNIT/HR PRN Reason: Protocol Last Admin: 11/27/16 18:53 Dose: 21 mls/hr Sodium Chloride (Normal Saline -) 1,000 mls @ 83 mls/hr IV ASDIR [facility] Stop: 11/29/16 21:14 Last Admin: 11/28/16 11:16 Dose: 83 mls/hr Insulin Aspart (Novolog Vial Sliding Scale -) 1 vial SQ TIDAC [facility] PRN Reason: Protocol Last Admin: 11/28/16 06:31 Dose: Not Given Insulin Detemir (Levemir Vial) 5 units SQ HS [facility] Last Admin: 11/27/16 22:19 Dose: Not Given Losartan Potassium (Cozaar -) 100 mg PO HS [facility] Last Admin: 11/27/16 22:26 Dose: 100 mg Metoprolol Tartrate (Lopressor -) 25 mg PO BID [facility] Last Admin: 11/28/16 09:41 Dose: 25 mg Morphine Sulfate (Morphine Injection -) 1 mg IVPUSH Q4H PRN PRN Reason: PAIN Last Admin: 11/26/16 17:26 Dose: 1 mg - Objective Vital Signs: Vital Signs Temperature 97.8 F 11/28/16 09:00 Pulse Rate 71 11/28/16 09:00 Respiratory Rate 18 11/28/16 09:00 Blood Pressure 129/62 11/28/16 09:00 O2 Sat by Pulse Oximetry (%) 95 11/26/16 21:00 Constitutional: Yes: Well Nourished, Calm Eyes: Yes: WNL HENT: Yes: WNL Neck: Yes: WNL Cardiovascular: Yes: Regular Rate and Rhythm, S1, S2 Respiratory: Yes: CTA Bilaterally Gastrointestinal: Yes: Normal Bowel Sounds, Soft Extremities: Yes: WNL Edema: No Labs: CBC, BMP 11/28/16 06:05 11/28/16 06:05 INR, PTT INR 1.02 (0.82-1.09) 11/25/16 06:15 Assessment/Plan Problem List - Problems (1) NSTEMI (non-ST elevated myocardial infarction) Code(s): I21.4 - NON-ST ELEVATION (NSTEMI) MYOCARDIAL INFARCTION (2) Pleuritic chest pain Code(s): R07.81 - PLEURODYNIA LIKE;Y MUSCULOSKELETAL (3) Hypertension Code(s): I10 - ESSENTIAL (PRIMARY) HYPERTENSION Assessment/Plan PLAN: IV Heparin pend results of lung scan O2 as needed OSAS workup after discharge CTA in am . monitor lytes,renal function DR COLE
[2016-11-28] MEDS: ACETYLCYSTEINE 20% 200MG/ML 30 ML VIAL *FOR ORAL / INH USE ONLY PO SCH (11:34)
--- NOTE | 2016-11-28 11:58 | PN ---
Progress Note (short form) - Note Progress Note: pt seen/ examined chart reviewed comfortable sitting in chair still having right side pain - but says much better all f/u noted Vital Signs Temp 97.8 F 11/28/16 09:00 Pulse 71 11/28/16 09:00 Resp 18 11/28/16 09:00 BP 129/62 11/28/16 09:00 Pulse Ox 95 11/26/16 21:00 Intake & Output 11/27/16 11/27/16 11/28/16 11:59 23:59 11:59 Intake Total 509 1052 602 Balance 509 1052 602 Intake: IV 269 152 252 Heparin - 25,000 Unit In 269 152 252 Normal Saline - 495 ml @ 1,000 UNIT/HR 20 mls/hr IV TITR TERI Rx#: [id number] Oral 240 900 350 Other: Voiding Method Toilet Toilet Toilet # Unmeasured Voids Void 1 1 1 Active Medications Acetaminophen (Tylenol -) 650 mg PO Q6H PRN PRN Reason: FEVER OR PAIN Last Admin: 11/27/16 13:13 Dose: 650 mg Acetylcysteine (Mucomyst 20 Oral / Inh Use Only*) 1,200 mg PO Q12H [facility] Stop: 11/29/16 22:01 Last Admin: 11/28/16 11:34 Dose: 1,200 mg Aspirin (Ecotrin -) 325 mg PO DAILY [facility] Last Admin: 11/28/16 09:40 Dose: 325 mg Atorvastatin Calcium (Lipitor -) 10 mg PO HS [facility] Last Admin: 11/27/16 22:26 Dose: 10 mg Cholecalciferol (Vitamin D3 -) 1,000 unit PO DAILY [facility] Last Admin: 11/28/16 09:41 Dose: 1,000 unit Heparin Sodium (Porcine) (Heparin -) 1,000 unit IVPUSH PRN PRN PRN Reason: Heparin Heparin Sodium (Porcine) (Heparin -) 5,000 unit IVPUSH PRN PRN PRN Reason: Heparin Last Admin: 11/26/16 21:00 Dose: 5,000 unit Hydralazine HCl (Apresoline -) 50 mg PO BID [facility] Last Admin: 11/28/16 09:41 Dose: 50 mg Heparin Sodium (Porcine) 25, (000 unit/ Sodium Chloride) 500 mls @ 20 mls/hr IV TITR TERI; 1,000 UNIT/HR PRN Reason: Protocol Last Admin: 11/27/16 18:53 Dose: 21 mls/hr Sodium Chloride (Normal Saline -) 1,000 mls @ 83 mls/hr IV ASDIR [facility] Stop: 11/29/16 21:14 Last Admin: 11/28/16 11:16 Dose: 83 mls/hr Insulin Aspart (Novolog Vial Sliding Scale -) 1 vial SQ TIDAC [facility] PRN Reason: Protocol Last Admin: 11/28/16 11:38 Dose: Not Given Insulin Detemir (Levemir Vial) 5 units SQ HS [facility] Last Admin: 11/27/16 22:19 Dose: Not Given Losartan Potassium (Cozaar -) 100 mg PO HS [facility] Last Admin: 11/27/16 22:26 Dose: 100 mg Metoprolol Tartrate (Lopressor -) 25 mg PO BID [facility] Last Admin: 11/28/16 09:41 Dose: 25 mg Morphine Sulfate (Morphine Injection -) 1 mg IVPUSH Q4H PRN PRN Reason: PAIN Last Admin: 11/26/16 17:26 Dose: 1 mg CBC, BMP 11/28/16 06:05 11/28/16 06:05 Physical Exam Constitutional: Yes: No Distress/ comfortable Cardiovascular: Yes: Regular Rate and Rhythm Respiratory: Yes: clear Gastrointestinal: Yes: Normal Bowel Sounds, Soft. No: Tenderness Edema: trace Problem List - Problems (1) NSTEMI (non-ST elevated myocardial infarction) Code(s): I21.4 - NON-ST ELEVATION (NSTEMI) MYOCARDIAL INFARCTION (2) Pleuritic chest pain Code(s): R07.81 - PLEURODYNIA (3) Hypertension Code(s): I10 - ESSENTIAL (PRIMARY) HYPERTENSION (4) CKD (chronic kidney disease) Code(s): N18.9 - CHRONIC KIDNEY DISEASE, UNSPECIFIED Assessment/Plan PLAN stable on Heparin drip continue present care may need to go for cardiac cath per Cardiology cta tomorrow f/u labs will follow
[2016-11-28] MEDS: LOSARTAN POTASSIUM 50 MG TABLET (FP) PO SCH (21:39)
[2016-11-28] MEDS: INSULIN DETEMIR 100 UNITS/ML MDV SQ SCH (21:39)
[2016-11-28] MEDS: ATORVASTATIN CA 10 MG TABLET (FP) PO SCH (21:40)
[2016-11-28] MEDS: ACETAMINOPHEN 325 MG TABLET (FP) PO PRN (23:58)
[2016-11-29] MEDS: INSULIN SLIDING SCALE (NOVOLOG) 1 VIAL SQ SCH ×3 (06:39→17:30)
[2016-11-29 07:50] LABS: BASOPHIL 0.4 % (0-2.0); EOSINOPHIL 6.1 % (0-4.5); MCH 28.6 pg (25.7-33.7); MCHC 33.3 g/dl (32.0-36.0); MEAN CELL VOLUME 85.8 fl (80-96); MEAN PLT VOLUME 7.9 fl (7.5-11.1); NEUTROPHILS 46.2 % (42.8-82.8); PLATELET COUNT 247 K/MM3 (134-434); RDW 14.1 % (11.6-15.6); WHITE BLOOD COUNT 7.5 K/mm3 (4.0-10.0)
[2016-11-29 08:28] LABS: ALBUMIN 2.7 g/dl (3.4-5.0); ANION GAP 9 (8-16); CALCIUM 8.5 mg/dL (8.5-10.1); CO2 24 mmol/L (21-32); GLUCOSE,RANDOM 103 mg/dL (74-106); SGOT/AST 28 U/L (15-37); SGPT/ALT 37 U/L (12-78)
[2016-11-29 08:30] LABS: ALK PHOS 78 U/L (45-117); BILIRUBIN,TOTAL 0.4 mg/dL (0.2-1.0); CREATININE 1.2 mg/dL (0.55-1.02); TOT PROT 5.8 g/dl (6.4-8.2)
[2016-11-29] MEDS: ASPIRIN 325 MG ENTERIC COATED TABLET (FP) PO SCH (09:26)
[2016-11-29] MEDS: hydrALAZINE HCL 50 MG TABLET (FP) PO SCH ×2 (09:26→22:03)
[2016-11-29] MEDS: METOPROLOL TARTRATE 25 MG TABLET (FP) PO SCH ×2 (09:27→22:04)
[2016-11-29] MEDS: CHOLECALCIFEROL (VITAMIN D3) 1,000 UNIT TABLET (FP) PO SCH (09:27)
[2016-11-29] MEDS: HEPARIN - 25,000 UNIT in SODIUM CHLORIDE 495 ML IV SCH ×2 (09:30→13:15)
--- NOTE | 2016-11-29 10:59 | PN ---
Progress Note, Physician History of Present Illness: pulmonary alet,+sob with exertin,chest cta +bilateral pulmonary emboli - Current Medication List Current Medications: Active Medications Acetaminophen (Tylenol -) 650 mg PO Q6H PRN PRN Reason: FEVER OR PAIN Last Admin: 11/28/16 23:58 Dose: 650 mg Acetylcysteine (Mucomyst 20 Oral / Inh Use Only*) 1,200 mg PO Q12H [facility] Stop: 11/29/16 22:01 Last Admin: 11/28/16 11:34 Dose: 1,200 mg Aspirin (Ecotrin -) 325 mg PO DAILY [facility] Last Admin: 11/29/16 09:26 Dose: 325 mg Atorvastatin Calcium (Lipitor -) 10 mg PO HS [facility] Last Admin: 11/28/16 21:40 Dose: 10 mg Cholecalciferol (Vitamin D3 -) 1,000 unit PO DAILY [facility] Last Admin: 11/29/16 09:27 Dose: 1,000 unit Heparin Sodium (Porcine) (Heparin -) 1,000 unit IVPUSH PRN PRN PRN Reason: Heparin Heparin Sodium (Porcine) (Heparin -) 5,000 unit IVPUSH PRN PRN PRN Reason: Heparin Last Admin: 11/26/16 21:00 Dose: 5,000 unit Hydralazine HCl (Apresoline -) 50 mg PO BID [facility] Last Admin: 11/29/16 09:26 Dose: 50 mg Heparin Sodium (Porcine) 25, (000 unit/ Sodium Chloride) 500 mls @ 20 mls/hr IV TITR TERI; 1,000 UNIT/HR PRN Reason: Protocol Last Admin: 11/29/16 09:30 Dose: 21 mls/hr Sodium Chloride (Normal Saline -) 1,000 mls @ 83 mls/hr IV ASDIR [facility] Stop: 11/29/16 21:14 Last Admin: 11/28/16 11:16 Dose: 83 mls/hr Insulin Aspart (Novolog Vial Sliding Scale -) 1 vial SQ TIDAC [facility] PRN Reason: Protocol Last Admin: 11/29/16 06:39 Dose: Not Given Insulin Detemir (Levemir Vial) 5 units SQ HS [facility] Last Admin: 11/28/16 21:39 Dose: Not Given Losartan Potassium (Cozaar -) 100 mg PO HS [facility] Last Admin: 11/28/16 21:39 Dose: 100 mg Metoprolol Tartrate (Lopressor -) 25 mg PO BID [facility] Last Admin: 11/29/16 09:27 Dose: 25 mg Morphine Sulfate (Morphine Injection -) 1 mg IVPUSH Q4H PRN PRN Reason: PAIN Last Admin: 11/26/16 17:26 Dose: 1 mg - Objective Vital Signs: Vital Signs Temperature 98.1 F 11/29/16 02:00 Pulse Rate 61 11/29/16 02:00 Respiratory Rate 18 11/29/16 02:00 Blood Pressure 132/60 11/29/16 02:00 O2 Sat by Pulse Oximetry (%) 94 L 11/28/16 21:00 Constitutional: Yes: Well Nourished, Calm Eyes: Yes: WNL HENT: Yes: WNL Neck: Yes: WNL Cardiovascular: Yes: Regular Rate and Rhythm, S1, S2 Respiratory: Yes: Diminished Gastrointestinal: Yes: Normal Bowel Sounds, Soft Extremities: Yes: WNL Edema: No Labs: CBC, BMP 11/29/16 05:50 11/29/16 05:50 INR, PTT INR 1.02 (0.82-1.09) 11/25/16 06:15 - ....Imaging Cat Scan: Report Reviewed, Image Reviewed (bilateral PEs) Problem List - Problems (1) Pulmonary embolism Code(s): I26.99 - OTHER PULMONARY EMBOLISM WITHOUT ACUTE COR PULMONALE Assessment/Plan Problem List - Problems (1) NSTEMI (non-ST elevated myocardial infarction) Code(s): I21.4 - NON-ST ELEVATION (NSTEMI) MYOCARDIAL INFARCTION (2) Pleuritic chest pain Code(s): R07.81 - PLEURODYNIA LIKE;Y MUSCULOSKELETAL (3) Hypertension Code(s): I10 - ESSENTIAL (PRIMARY) HYPERTENSION 4 PULMONARY EMBOLISM ?unprovoked vs provoked Assessment/Plan PLAN: IV Heparin O2 as needed OSAS workup after discharge monitor lytes,renal function w/u for hypercoagulable state r/o underlying malignancy DR COLE
[2016-11-29] MEDS: ACETYLCYSTEINE 20% 200MG/ML 30 ML VIAL *FOR ORAL / INH USE ONLY PO SCH ×2 (12:16→22:05)
--- NOTE | 2016-11-29 12:32 | PN ---
Progress Note (short form) - Note Progress Note: s: no palps dizzy, +mild sob, +pleuritic pain in right chest/right flank Current Medications Generic Name Dose Route Start Last Admin Trade Name Armin PRN Reason Stop Dose Admin Acetaminophen 650 mg 11/25/16 21:25 11/28/16 23:58 Tylenol - PO 650 mg Q6H PRN Administration FEVER OR PAIN Acetylcysteine 1,200 mg 11/28/16 10:00 11/29/16 12:16 Mucomyst 20 Oral / Inh Use Only* PO 11/29/16 22:01 1,200 mg Q12H TERI Administration Aspirin 325 mg 11/26/16 10:00 11/29/16 09:26 Ecotrin - PO 325 mg DAILY [facility] Administration Atorvastatin Calcium 10 mg 11/25/16 22:00 11/28/16 21:40 Lipitor - PO 10 mg HS [facility] Administration Cholecalciferol 1,000 unit 11/26/16 10:00 11/29/16 09:27 Vitamin D3 - PO 1,000 unit DAILY [facility] Administration Heparin Sodium (Porcine) 1,000 unit 11/25/16 11:35 Heparin - IVPUSH PRN PRN Heparin Heparin Sodium (Porcine) 5,000 unit 11/25/16 11:35 11/26/16 21:00 Heparin - IVPUSH 5,000 unit PRN PRN Administration Heparin Hydralazine HCl 50 mg 11/25/16 22:00 11/29/16 09:26 Apresoline - PO 50 mg BID [facility] Administration Heparin Sodium (Porcine) 25, 500 mls @ 20 mls/hr 11/25/16 11:45 11/29/16 09:30 000 unit/ Sodium Chloride IV 21 mls/hr TITR TERI Administration Protocol 1,000 UNIT/HR Sodium Chloride 1,000 mls @ 83 mls/hr 11/28/16 09:15 11/28/16 11:16 Normal Saline - IV 11/29/16 21:14 83 mls/hr ASDIR [facility] Administration Insulin Aspart 1 vial 11/26/16 07:00 11/29/16 12:19 Novolog Vial Sliding Scale - SQ Not Given TIDAC [facility] Protocol Insulin Detemir 5 units 11/25/16 22:00 11/28/16 21:39 Levemir Vial SQ Not Given HS [facility] Losartan Potassium 100 mg 11/27/16 22:00 11/28/16 21:39 Cozaar - PO 100 mg HS [facility] Administration Metoprolol Tartrate 25 mg 11/25/16 11:45 11/29/16 09:27 Lopressor - PO 25 mg BID [facility] Administration Morphine Sulfate 1 mg 11/26/16 12:44 11/26/16 17:26 Morphine Injection - IVPUSH 1 mg Q4H PRN Administration PAIN Vital Signs Period Temp Pulse Resp BP Sys/Peacock Pulse Ox Last 24 Hr 97.6 F-98.9 F 61-74 18-18 132-158/53-93 94-98 Constitutional: Yes: Well Nourished, No Distress Eyes: No: Sclera Icterus Respiratory: Yes: CTA Bilaterally. No: Accessory Muscle Use, Rales, Wheezes Gastrointestinal: Yes: Normal Bowel Sounds. No: Distention, Hepatomegaly, Palpable Mass, Tenderness Cardiovascular: Yes: Regular Rate and Rhythm JVD: No Heart Sounds: Yes: S1, S2. No: Gallop Murmur: No: Systolic Murmur, Diastolic Murmur Extremities: No: Cold, Cyanosis Edema: No (no induratn/cord/tender) Integumentary: No: Jaundice diaphoresis Neurological: Yes: Alert, Oriented (x3) Psychiatric: No: Agitated - Other Data Labs, Other Data: CBC, BMP 11/29/16 05:50 11/29/16 05:50 MIBI 10/05: no ischemia or scar, hyper EF Echo 11/2016: nl lv/rv. grade 1 diastolic dysfunction. 1+ lae, 1+ mr, mod TR. rvsp 30-40. Echo 05/07: nl LV, nl RV; mild AI CXR (gitig review): clear lungs/pleura, no vasc redistribution, doubt small R effusion EKG 11/25: NSR, normal axis/intervals; no path q's; nonsp TWIs v2/v3 and flat T's in V4--new vs prior (10/28/16) tele: sr a/p: 86 yo with htn, HL, niddm, cva with residual right sided weakness, CKD ( bline cr 1.3), COPD, O2 Dependent, prior PE, p/w cp and troponin elevation of 0.9. atypical (right sided, pleuritic) CP, NSTEMI: -chronic sob, with prior noninvasive CV w/u negative including recently with repeat MPI (10/05) and echo (05/07)--sx's not changed of late -now with 2d of R chest pain near axillary line to back, positional/tender and pleuritic. trop 0.9 initially, nonspecific ecg changes vs prior. -sx's NOT SUSPICIOUS FOR ACS nd now cta chest 11/29 confirms b/l PE's which would explain sxs and mild trop elevation - LE venous dopplers --> neg for dvt. -cont AC for PE's acute diast chf: -stable, resolved MICHAEL on CKD: -per dr hathaway, pt creat at baseline (09/04) was 1.3; -was up to 1.9 last month in ER, 1.5. Now back to baseline after ivfs HTN: -reasonably controlled here
[2016-11-29] MEDS: SODIUM CHLORIDE 1,000 ML IV SCH (12:46)
--- NOTE | 2016-11-29 13:35 | PN ---
Progress Note (short form) - Note Progress Note: Renal Follow up for CKD Pt seen and examined at the bedside s/p CTA this am, + B/L PE no acute complaints denies any SOB at this time on IVF Vital Signs Temperature 97.7 F 11/29/16 10:00 Pulse Rate 66 11/29/16 10:00 Respiratory Rate 18 11/29/16 10:00 Blood Pressure 158/72 11/29/16 10:00 O2 Sat by Pulse Oximetry (%) 95 11/29/16 09:00 Intake & Output 11/26/16 11/27/16 11/28/16 11/29/16 23:59 23:59 23:59 23:59 Intake Total 1180 1561 1247 500 Balance 1180 1561 1247 500 Weight 190 lb 0.016 oz Gen: NAD, awake and alert CVS: RRR, No M/R Lungs:CTA, no rales or wheeze Abd: soft NT/ND Ext: No edema, clubbing or cyanosis CBC, BMP 11/29/16 05:50 11/29/16 05:50 Current Medications Acetaminophen (Tylenol -) 650 mg PO Q6H PRN PRN Reason: FEVER OR PAIN Last Admin: 11/28/16 23:58 Dose: 650 mg Acetylcysteine (Mucomyst 20 Oral / Inh Use Only*) 1,200 mg PO Q12H [facility] Stop: 11/29/16 22:01 Last Admin: 11/29/16 12:16 Dose: 1,200 mg Aspirin (Ecotrin -) 325 mg PO DAILY [facility] Last Admin: 11/29/16 09:26 Dose: 325 mg Atorvastatin Calcium (Lipitor -) 10 mg PO HS [facility] Last Admin: 11/28/16 21:40 Dose: 10 mg Cholecalciferol (Vitamin D3 -) 1,000 unit PO DAILY [facility] Last Admin: 11/29/16 09:27 Dose: 1,000 unit Heparin Sodium (Porcine) (Heparin -) 1,000 unit IVPUSH PRN PRN PRN Reason: Heparin Heparin Sodium (Porcine) (Heparin -) 5,000 unit IVPUSH PRN PRN PRN Reason: Heparin Last Admin: 11/26/16 21:00 Dose: 5,000 unit Hydralazine HCl (Apresoline -) 50 mg PO BID [facility] Last Admin: 08/11/17 09:26 Dose: 50 mg Heparin Sodium (Porcine) 25, (000 unit/ Sodium Chloride) 500 mls @ 20 mls/hr IV TITR TERI; 1,000 UNIT/HR PRN Reason: Protocol Last Admin: 11/29/16 13:15 Dose: 21 mls/hr Sodium Chloride (Normal Saline -) 1,000 mls @ 83 mls/hr IV ASDIR [facility] Stop: 11/29/16 21:14 Last Admin: 11/29/16 12:46 Dose: 83 mls/hr Insulin Aspart (Novolog Vial Sliding Scale -) 1 vial SQ TIDAC [facility] PRN Reason: Protocol Last Admin: 11/29/16 12:19 Dose: Not Given Insulin Detemir (Levemir Vial) 5 units SQ HS [facility] Last Admin: 11/28/16 21:39 Dose: Not Given Losartan Potassium (Cozaar -) 100 mg PO HS [facility] Last Admin: 11/28/16 21:39 Dose: 100 mg Metoprolol Tartrate (Lopressor -) 25 mg PO BID [facility] Last Admin: 11/29/16 09:27 Dose: 25 mg A/P 86 year old woman with PMhx of CKD stage 3, Hypertension, CVA with left sided weakness, DM who presented with right sided chest pain with radiation to the back with Cr of 1.3. #CKD stage 3 Renal function stable s/p contrast exposure this am contineu IVF for 6 hours and mucomyst BID today Trend BUN/Cr up to 48 hours post contrast exposure #Atypical chest pain/NSTEMI CTA + for PE A/c as per primary #Hypertension Continue Hydralazine, Metoprolol, Losartan BP is at goal Thank you Clif Martínez DO Problem List - Problems (1) CKD (chronic kidney disease) Code(s): N18.9 - CHRONIC KIDNEY DISEASE, UNSPECIFIED (2) NSTEMI (non-ST elevated myocardial infarction) Code(s): I21.4 - NON-ST ELEVATION (NSTEMI) MYOCARDIAL INFARCTION (3) Pleuritic chest pain Code(s): R07.81 - PLEURODYNIA (4) Hypertension Code(s): I10 - ESSENTIAL (PRIMARY) HYPERTENSION
--- NOTE | 2016-11-29 21:14 | PN ---
Progress Note, Physician Chief Complaint: Rt pleuretic chest pain CTA B/L Pul Emboli On IV heparin - Current Medication List Current Medications: Active Medications Acetaminophen (Tylenol -) 650 mg PO Q6H PRN PRN Reason: FEVER OR PAIN Last Admin: 11/28/16 23:58 Dose: 650 mg Acetylcysteine (Mucomyst 20 Oral / Inh Use Only*) 1,200 mg PO Q12H [facility] Stop: 11/29/16 22:01 Last Admin: 11/29/16 12:16 Dose: 1,200 mg Aspirin (Ecotrin -) 325 mg PO DAILY [facility] Last Admin: 11/29/16 09:26 Dose: 325 mg Atorvastatin Calcium (Lipitor -) 10 mg PO HS [facility] Last Admin: 11/28/16 21:40 Dose: 10 mg Cholecalciferol (Vitamin D3 -) 1,000 unit PO DAILY [facility] Last Admin: 11/29/16 09:27 Dose: 1,000 unit Heparin Sodium (Porcine) (Heparin -) 1,000 unit IVPUSH PRN PRN PRN Reason: Heparin Heparin Sodium (Porcine) (Heparin -) 5,000 unit IVPUSH PRN PRN PRN Reason: Heparin Last Admin: 11/26/16 21:00 Dose: 5,000 unit Hydralazine HCl (Apresoline -) 50 mg PO BID [facility] Last Admin: 11/29/16 09:26 Dose: 50 mg Heparin Sodium (Porcine) 25, (000 unit/ Sodium Chloride) 500 mls @ 20 mls/hr IV TITR TERI; 1,000 UNIT/HR PRN Reason: Protocol Last Admin: 11/29/16 13:15 Dose: 21 mls/hr Insulin Aspart (Novolog Vial Sliding Scale -) 1 vial SQ TIDAC [facility] PRN Reason: Protocol Last Admin: 11/29/16 17:30 Dose: Not Given Insulin Detemir (Levemir Vial) 5 units SQ HS [facility] Last Admin: 11/28/16 21:39 Dose: Not Given Losartan Potassium (Cozaar -) 100 mg PO HS [facility] Last Admin: 11/28/16 21:39 Dose: 100 mg Metoprolol Tartrate (Lopressor -) 25 mg PO BID [facility] Last Admin: 11/29/16 09:27 Dose: 25 mg - Objective Vital Signs: Vital Signs Temperature 97.8 F 11/29/16 20:40 Pulse Rate 68 11/29/16 20:40 Respiratory Rate 18 11/29/16 20:40 Blood Pressure 160/70 11/29/16 20:40 O2 Sat by Pulse Oximetry (%) 94 L 11/29/16 20:40 Constitutional: Yes: No Distress Eyes: Yes: Conjunctiva Clear, EOM Intact HENT: Yes: Atraumatic, Normocephalic Neck: Yes: Supple, Trachea Midline Cardiovascular: Yes: Regular Rate and Rhythm, S1, S2 Respiratory: Yes: Regular, CTA Bilaterally Gastrointestinal: Yes: Normal Bowel Sounds, Soft Edema: No Labs: CBC, BMP 11/29/16 05:50 11/29/16 05:50 INR, PTT INR 1.02 (0.82-1.09) 11/25/16 06:15 Problem List - Problems (1) CKD (chronic kidney disease) Code(s): N18.9 - CHRONIC KIDNEY DISEASE, UNSPECIFIED (2) NSTEMI (non-ST elevated myocardial infarction) Code(s): I21.4 - NON-ST ELEVATION (NSTEMI) MYOCARDIAL INFARCTION (3) Pulmonary embolism Code(s): I26.99 - OTHER PULMONARY EMBOLISM WITHOUT ACUTE COR PULMONALE (4) Hypertension Code(s): I10 - ESSENTIAL (PRIMARY) HYPERTENSION Assessment/Plan Pt is having B/L Pul Emboli On IV heparin Pt is hemodynamically stable Hepercoagulable state work up
[2016-11-29] MEDS: LOSARTAN POTASSIUM 50 MG TABLET (FP) PO SCH (22:03)
[2016-11-29] MEDS: ATORVASTATIN CA 10 MG TABLET (FP) PO SCH (22:04)
[2016-11-29] MEDS: INSULIN DETEMIR 100 UNITS/ML MDV SQ SCH (22:04)
[2016-11-30] MEDS: INSULIN SLIDING SCALE (NOVOLOG) 1 VIAL SQ SCH ×3 (06:42→17:01)
[2016-11-30 07:36] LABS: MAGNESIUM 2.1 mg/dL (1.8-2.4); PHOSPHOROUS 3.9 mg/dL (2.5-4.9)
[2016-11-30 07:40] LABS: MCH 28.7 pg (25.7-33.7); MCHC 33.6 g/dl (32.0-36.0); MEAN CELL VOLUME 85.3 fl (80-96); MEAN PLT VOLUME 8.6 fl (7.5-11.1); PLATELET COUNT 276 K/MM3 (134-434); RDW 14.3 % (11.6-15.6); WHITE BLOOD COUNT 7.9 K/mm3 (4.0-10.0)
[2016-11-30] MEDS: HEPARIN - 25,000 UNIT in SODIUM CHLORIDE 495 ML IV SCH (09:00)
[2016-11-30] MEDS: CHOLECALCIFEROL (VITAMIN D3) 1,000 UNIT TABLET (FP) PO SCH (09:13)
[2016-11-30] MEDS: hydrALAZINE HCL 50 MG TABLET (FP) PO SCH ×2 (09:13→22:32)
[2016-11-30] MEDS: ASPIRIN 325 MG ENTERIC COATED TABLET (FP) PO SCH (09:13)
[2016-11-30] MEDS: METOPROLOL TARTRATE 25 MG TABLET (FP) PO SCH ×2 (09:13→22:33)
[2016-11-30] MEDS ORDERED: HEPARIN INFUSION - 500 ML IVPB ONE (12:44)
--- NOTE | 2016-11-30 12:57 | PN ---
Progress Note, Physician Chief Complaint: The patient seen in her bed. Compalaints of Shortness of breath on minimal exertion ( eg. eating) Good urine output is maintained. Off IV fluids now. History of Present Illness: 86 year old woman with PMhx of CKD stage 3, Hypertension, CVA with left sided weakness, DM who presented with right sided chest pain with radiation to the back. The patient ramos h/o underlying CKD. Had CT of the chest that shows Bilateral Pulmonary embolism. ON IV Heparin. - Current Medication List Current Medications: Active Medications Acetaminophen (Tylenol -) 650 mg PO Q6H PRN PRN Reason: FEVER OR PAIN Last Admin: 11/28/16 23:58 Dose: 650 mg Aspirin (Ecotrin -) 325 mg PO DAILY [facility] Last Admin: 11/30/16 09:13 Dose: 325 mg Atorvastatin Calcium (Lipitor -) 10 mg PO HS [facility] Last Admin: 11/29/16 22:04 Dose: 10 mg Cholecalciferol (Vitamin D3 -) 1,000 unit PO DAILY [facility] Last Admin: 11/30/16 09:13 Dose: 1,000 unit Heparin Sodium (Porcine) (Heparin -) 1,000 unit IVPUSH PRN PRN PRN Reason: Heparin Last Admin: 11/30/16 09:13 Dose: 1,000 unit Heparin Sodium (Porcine) (Heparin -) 5,000 unit IVPUSH PRN PRN PRN Reason: Heparin Last Admin: 11/26/16 21:00 Dose: 5,000 unit Hydralazine HCl (Apresoline -) 50 mg PO BID [facility] Last Admin: 11/30/16 09:13 Dose: 50 mg Heparin Sodium (Porcine) 25, (000 unit/ Sodium Chloride) 500 mls @ 20 mls/hr IV TITR [facility]I; 1,000 UNIT/HR PRN Reason: Protocol Last Admin: 11/29/16 13:15 Dose: 21 mls/hr Insulin Aspart (Novolog Vial Sliding Scale -) 1 vial SQ TIDAC [facility] PRN Reason: Protocol Last Admin: 11/30/16 06:42 Dose: Not Given Insulin Detemir (Levemir Vial) 5 units SQ HS [facility] Last Admin: 11/29/16 22:04 Dose: Not Given Losartan Potassium (Cozaar -) 100 mg PO HS [facility] Last Admin: 11/29/16 22:03 Dose: 100 mg Metoprolol Tartrate (Lopressor -) 25 mg PO BID [facility] Last Admin: 11/30/16 09:13 Dose: 25 mg - Objective Vital Signs: Vital Signs Temperature 98.7 F 11/30/16 10:00 Pulse Rate 79 11/30/16 10:00 Respiratory Rate 20 11/30/16 10:00 Blood Pressure 122/52 11/30/16 10:00 O2 Sat by Pulse Oximetry (%) 94 L 11/30/16 09:00 Constitutional: Yes: Calm, Moderate Distress Eyes: Yes: Conjunctiva Clear HENT: Yes: Normocephalic Neck: Yes: Trachea Midline Cardiovascular: Yes: Regular Rate and Rhythm, S1, S2 Respiratory: Yes: Regular, Poor Air Entry, Rales, Rhonchi, Wheezes Gastrointestinal: Yes: Normal Bowel Sounds, Soft Extremities: No: Calf Tenderness Neurological: Yes: Alert, Oriented Labs: CBC, BMP 11/30/16 05:35 11/29/16 05:50 INR, PTT INR 1.02 (0.82-1.09) 11/25/16 06:15 Problem List - Problems (1) CKD (chronic kidney disease) Code(s): N18.9 - CHRONIC KIDNEY DISEASE, UNSPECIFIED (2) Pleuritic chest pain Code(s): R07.81 - PLEURODYNIA (3) Hypertension Code(s): I10 - ESSENTIAL (PRIMARY) HYPERTENSION (4) Acute kidney failure Code(s): N17.9 - ACUTE KIDNEY FAILURE, UNSPECIFIED (5) Acute pulmonary embolism Code(s): I26.99 - OTHER PULMONARY EMBOLISM WITHOUT ACUTE COR PULMONALE Assessment/Plan 86 year old woman with PMhx of CKD stage 3, Hypertension, CVA with left sided weakness, DM who presented with right sided chest pain with radiation to the back. The patient is found to have Bilateral Pulmonary Embolism, and is now in IV Heparin. Has underlying Chronic Kidney disease, from Chronic Microvascular Renal disease. Some degree of acute hemodynamic Renal dysfunction has improved. Since the patient received IV Contrast yesterday, will monitor the renal functions closely. Labs ordered for tomorrow. Shanti Joiner MD
--- NOTE | 2016-11-30 13:49 | PN ---
Progress Note (short form) - Note Progress Note: pt seen/ examined chart reviewed cta - confirmed PE on heparin. feels better Vital Signs Temp 98.7 F 11/30/16 10:00 Pulse 79 11/30/16 10:00 Resp 20 11/30/16 10:00 BP 122/52 11/30/16 10:00 Pulse Ox 94 L 11/30/16 09:00 Intake & Output 11/29/16 11/30/16 11/30/16 23:59 11:59 23:59 Intake Total 1101 562 Balance 1101 562 Intake: IV 21 262 Heparin - 25,000 Unit In 21 252 Normal Saline - 495 ml @ 1,000 UNIT/HR 20 mls/hr IV TITR TERI Rx#: [id number] left forearm 10 Oral 1080 300 Other: Voiding Method Toilet Toilet # Unmeasured Voids Void 4 3 Bowel Movement No No Active Medications Acetaminophen (Tylenol -) 650 mg PO Q6H PRN PRN Reason: FEVER OR PAIN Last Admin: 11/28/16 23:58 Dose: 650 mg Aspirin (Ecotrin -) 325 mg PO DAILY [facility] Last Admin: 11/30/16 09:13 Dose: 325 mg Atorvastatin Calcium (Lipitor -) 10 mg PO HS [facility] Last Admin: 11/29/16 22:04 Dose: 10 mg Cholecalciferol (Vitamin D3 -) 1,000 unit PO DAILY [facility] Last Admin: 11/30/16 09:13 Dose: 1,000 unit Heparin Sodium (Porcine) (Heparin -) 1,000 unit IVPUSH PRN PRN PRN Reason: Heparin Last Admin: 11/30/16 09:13 Dose: 1,000 unit Heparin Sodium (Porcine) (Heparin -) 5,000 unit IVPUSH PRN PRN PRN Reason: Heparin Last Admin: 11/26/16 21:00 Dose: 5,000 unit Hydralazine HCl (Apresoline -) 50 mg PO BID [facility] Last Admin: 11/30/16 09:13 Dose: 50 mg Heparin Sodium (Porcine) 25, (000 unit/ Sodium Chloride) 500 mls @ 20 mls/hr IV TITR TERI; 1,000 UNIT/HR PRN Reason: Protocol Last Admin: 11/29/16 13:15 Dose: 21 mls/hr Insulin Aspart (Novolog Vial Sliding Scale -) 1 vial SQ TIDAC [facility] PRN Reason: Protocol Last Admin: 11/30/16 12:00 Dose: Not Given Insulin Detemir (Levemir Vial) 5 units SQ [facility] Last Admin: 11/29/16 22:04 Dose: Not Given Losartan Potassium (Cozaar -) 100 mg PO HS [facility] Last Admin: 11/29/16 22:03 Dose: 100 mg Metoprolol Tartrate (Lopressor -) 25 mg PO BID [facility] Last Admin: 11/30/16 09:13 Dose: 25 mg CBC, BMP 11/30/16 05:35 11/29/16 05:50 Physical Exam Constitutional: Yes: No Distress/ comfortable Cardiovascular: Yes: Regular Rate and Rhythm Respiratory: Yes: clear Gastrointestinal: Yes: Normal Bowel Sounds, Soft. No: Tenderness Edema: trace Assessment/Plan stable on Heparin drip continue present care monitor renal function. will follow Problem List - Problems (1) Acute pulmonary embolism Code(s): I26.99 - OTHER PULMONARY EMBOLISM WITHOUT ACUTE COR PULMONALE (2) CKD (chronic kidney disease) Code(s): N18.9 - CHRONIC KIDNEY DISEASE, UNSPECIFIED (3) NSTEMI (non-ST elevated myocardial infarction) Code(s): I21.4 - NON-ST ELEVATION (NSTEMI) MYOCARDIAL INFARCTION (4) Pleuritic chest pain Code(s): R07.81 - PLEURODYNIA (5) Hypertension Code(s): I10 - ESSENTIAL (PRIMARY) HYPERTENSION
--- NOTE | 2016-11-30 14:07 | PN ---
Progress Note (short form) - Note Progress Note: Breathing feels better today. Less SOB. No CP. Intake & Output 11/27/16 11/28/16 11/29/16 11/30/16 23:59 23:59 23:59 23:59 Intake Total 1561 1247 1301 562 Balance 1561 1247 1301 562 Last Vital Signs Temp Pulse Resp BP Pulse Ox 98.7 F 79 20 122/52 94 L 11/30/16 10:00 11/30/16 10:00 11/30/16 10:00 11/30/16 10:00 11/30/16 09:00 Active Medications Acetaminophen (Tylenol -) 650 mg PO Q6H PRN PRN Reason: FEVER OR PAIN Last Admin: 11/28/16 23:58 Dose: 650 mg Aspirin (Ecotrin -) 325 mg PO DAILY [facility] Last Admin: 11/30/16 09:13 Dose: 325 mg Atorvastatin Calcium (Lipitor -) 10 mg PO HS [facility] Last Admin: 11/29/16 22:04 Dose: 10 mg Cholecalciferol (Vitamin D3 -) 1,000 unit PO DAILY [facility] Last Admin: 11/30/16 09:13 Dose: 1,000 unit Heparin Sodium (Porcine) (Heparin -) 1,000 unit IVPUSH PRN PRN PRN Reason: Heparin Last Admin: 11/30/16 09:13 Dose: 1,000 unit Heparin Sodium (Porcine) (Heparin -) 5,000 unit IVPUSH PRN PRN PRN Reason: Heparin Last Admin: 11/26/16 21:00 Dose: 5,000 unit Hydralazine HCl (Apresoline -) 50 mg PO BID [facility] Last Admin: 11/30/16 09:13 Dose: 50 mg Heparin Sodium (Porcine) 25, (000 unit/ Sodium Chloride) 500 mls @ 20 mls/hr IV TITR TERI; 1,000 UNIT/HR PRN Reason: Protocol Last Admin: 11/29/16 13:15 Dose: 21 mls/hr Insulin Aspart (Novolog Vial Sliding Scale -) 1 vial SQ TIDAC [facility] PRN Reason: Protocol Last Admin: 11/30/16 12:00 Dose: Not Given Insulin Detemir (Levemir Vial) 5 units SQ HS [facility] Last Admin: 11/29/16 22:04 Dose: Not Given Losartan Potassium (Cozaar -) 100 mg PO HS [facility] Last Admin: 11/29/16 22:03 Dose: 100 mg Metoprolol Tartrate (Lopressor -) 25 mg PO BID [facility] Last Admin: 11/30/16 09:13 Dose: 25 mg Constitutional: Yes: NAD Eyes: Yes: WNL HENT: Yes: WNL Neck: Yes: WNL Cardiovascular: Yes: Regular Rate and Rhythm, S1, S2 Respiratory: Yes: Diminished Gastrointestinal: Yes: Normal Bowel Sounds, Soft Extremities: Yes: WNL Edema: No Labs: Laboratory Results - last 24 hr 11/29/16 11/29/16 11/30/16 17:10 21:37 05:35 WBC 7.9 RBC 3.83 Hgb 11.0 Hct 32.7 MCV 85.3 MCH 28.7 MCHC 33.6 RDW 14.3 Plt Count 276 MPV 8.6 PTT (Actin FS) POC Glucometer 101 108 Phosphorus Magnesium 11/30/16 11/30/16 11/30/16 05:35 05:35 06:03 WBC RBC Hgb Hct MCV MCH MCHC RDW Plt Count MPV PTT (Actin FS) 47.8 H POC Glucometer 125 Phosphorus 3.9 D Magnesium 2.1 11/30/16 11:49 WBC RBC Hgb Hct MCV MCH MCHC RDW Plt Count MPV PTT (Actin FS) POC Glucometer 94 Phosphorus Magnesium Problem List - Problems (1) Pulmonary embolism Code(s): I26.99 - OTHER PULMONARY EMBOLISM WITHOUT ACUTE COR PULMONALE Assessment/Plan Problem List - Problems (1) NSTEMI (non-ST elevated myocardial infarction) Code(s): I21.4 - NON-ST ELEVATION (NSTEMI) MYOCARDIAL INFARCTION (2) Pleuritic chest pain Code(s): R07.81 - PLEURODYNIA (3) Hypertension Code(s): I10 - ESSENTIAL (PRIMARY) HYPERTENSION (4) Bilateral PULMONARY EMBOLISM ?unprovoked vs provoked Assessment/Plan PLAN: IV Heparin O2 as needed OSAS workup after discharge monitor lytes,renal function Will ultimately need all screening to R/O occult malignancy Dr Muniz Problem List - Problems (1) NSTEMI (non-ST elevated myocardial infarction) Code(s): I21.4 - NON-ST ELEVATION (NSTEMI) MYOCARDIAL INFARCTION (2) Pleuritic chest pain Code(s): R07.81 - PLEURODYNIA (3) Hypertension Code(s): I10 - ESSENTIAL (PRIMARY) HYPERTENSION
--- NOTE | 2016-11-30 20:16 | PN ---
Progress Note (short form) - Note Progress Note: CC: PE s: no palps dizzy, +mild sob, cp improved Current Medications Acetaminophen (Tylenol -) 650 mg PO Q6H PRN PRN Reason: FEVER OR PAIN Last Admin: 11/28/16 23:58 Dose: 650 mg Aspirin (Ecotrin -) 325 mg PO DAILY [facility] Last Admin: 11/30/16 09:13 Dose: 325 mg Atorvastatin Calcium (Lipitor -) 10 mg PO HS [facility] Last Admin: 11/29/16 22:04 Dose: 10 mg Cholecalciferol (Vitamin D3 -) 1,000 unit PO DAILY [facility] Last Admin: 11/30/16 09:13 Dose: 1,000 unit Heparin Sodium (Porcine) (Heparin -) 1,000 unit IVPUSH PRN PRN PRN Reason: Heparin Last Admin: 11/30/16 09:13 Dose: 1,000 unit Heparin Sodium (Porcine) (Heparin -) 5,000 unit IVPUSH PRN PRN PRN Reason: Heparin Last Admin: 11/26/16 21:00 Dose: 5,000 unit Hydralazine HCl (Apresoline -) 50 mg PO BID [facility] Last Admin: 11/30/16 09:13 Dose: 50 mg Heparin Sodium (Porcine) 25, (000 unit/ Sodium Chloride) 500 mls @ 20 mls/hr IV TITR TERI; 1,000 UNIT/HR PRN Reason: Protocol Last Admin: 11/30/16 09:00 Dose: 23 mls/hr Insulin Aspart (Novolog Vial Sliding Scale -) 1 vial SQ TIDAC [facility] PRN Reason: Protocol Last Admin: 11/30/16 17:01 Dose: Not Given Insulin Detemir (Levemir Vial) 5 units SQ HS [facility] Last Admin: 11/29/16 22:04 Dose: Not Given Losartan Potassium (Cozaar -) 100 mg PO HS [facility] Last Admin: 11/29/16 22:03 Dose: 100 mg Metoprolol Tartrate (Lopressor -) 25 mg PO BID [facility] Last Admin: 11/30/16 09:13 Dose: 25 mg Vital Signs - 24 hr 11/29/16 11/29/16 11/30/16 21:00 22:00 02:00 Temperature 97.8 F 98.7 F Pulse Rate 68 62 Respiratory 18 18 20 Rate Blood Pressure 160/70 145/58 O2 Sat by Pulse 94 L Oximetry (%) 11/30/16 11/30/16 11/30/16 06:00 09:00 10:00 Temperature 98.0 F 98.7 F Pulse Rate 66 79 Respiratory 20 20 Rate Blood Pressure 156/80 122/52 O2 Sat by Pulse 94 L Oximetry (%) 11/30/16 11/30/16 14:00 18:00 Temperature 97.9 F 98.7 F Pulse Rate 68 62 Respiratory 20 19 Rate Blood Pressure 139/89 141/58 O2 Sat by Pulse Oximetry (%) Intake & Output 11/28/16 11/29/16 11/30/16 12/01/16 07:59 07:59 07:59 07:59 Intake Total 1304 1195 1663 Balance 1304 1195 1663 Constitutional: Yes: Well Nourished, No Distress Eyes: No: Sclera Icterus Respiratory: Yes: diminished air movement, bibasilar crackles. No: Accessory Muscle Use, Rales, Wheezes Gastrointestinal: Yes: Normal Bowel Sounds. No: Distention, Hepatomegaly, Palpable Mass, Tenderness Cardiovascular: Yes: Regular Rate and Rhythm JVD: No Heart Sounds: Yes: S1, S2. No: Gallop Murmur: No: Systolic Murmur, Diastolic Murmur Extremities: No: Cold, Cyanosis Edema: No (no induratn/cord/tender) Integumentary: No: Jaundice diaphoresis Neurological: Yes: Alert, Oriented (x3) Psychiatric: No: Agitated - Other Data Labs, Other Data: CBC 11/30/16 05:35 MIBI 10/05: no ischemia or scar, hyper EF Echo 11/2016: nl lv/rv. grade 1 diastolic dysfunction. 1+ lae, 1+ mr, mod TR. rvsp 30-40. Echo 05/07: nl LV, nl RV; mild AI CXR (gitig review): clear lungs/pleura, no vasc redistribution, doubt small R effusion EKG 11/25: NSR, normal axis/intervals; no path q's; nonsp TWIs v2/v3 and flat T's in V4--new vs prior (10/28/16) tele: sr a/p: 86 yo with htn, HL, niddm, cva with residual right sided weakness, CKD ( bline cr 1.3), COPD, O2 Dependent, prior PE, p/w cp and troponin elevation of 0.9. atypical (right sided, pleuritic) CP, NSTEMI: -chronic sob, with prior noninvasive CV w/u negative including recently with repeat MPI (10/05) and echo (05/07)--sx's not changed of late -now with 2d of R chest pain near axillary line to back, positional/tender and pleuritic. trop 0.9 initially, nonspecific ecg changes vs prior. -sx's NOT SUSPICIOUS FOR ACS nd now cta chest 11/29 confirms b/l PE's which would explain sxs and mild trop elevation - LE venous dopplers --> neg for dvt. -cont AC for PE's diast chf: -elevated bnp likely 2/2 PE and not from acute heart failure exacerbation. s/p IVF here. - daily weights, bmp MICHAEL on CKD: -per dr hathaway, pt creat at baseline (09/04) was 1.3; -was up to 1.9 last month in ER, 1.5. Now back to baseline after ivfs HTN: -reasonably controlled here stable from CV perspective. OK to d/c telemetry.
[2016-11-30] MEDS: INSULIN DETEMIR 100 UNITS/ML MDV SQ SCH (22:31)
[2016-11-30] MEDS: LOSARTAN POTASSIUM 50 MG TABLET (FP) PO SCH (22:32)
[2016-11-30] MEDS: ATORVASTATIN CA 10 MG TABLET (FP) PO SCH (22:33)
[2016-12-01] MEDS: INSULIN SLIDING SCALE (NOVOLOG) 1 VIAL SQ SCH ×3 (06:24→17:29)
[2016-12-01 07:19] LABS: MCH 28.4 pg (25.7-33.7); MCHC 33.1 g/dl (32.0-36.0); MEAN CELL VOLUME 85.9 fl (80-96); MEAN PLT VOLUME 7.8 fl (7.5-11.1); PLATELET COUNT 284 K/MM3 (134-434); RDW 14.3 % (11.6-15.6); WHITE BLOOD COUNT 7.5 K/mm3 (4.0-10.0)
[2016-12-01 07:46] LABS: ALBUMIN 2.9 g/dl (3.4-5.0); ANION GAP 7 (8-16); CALCIUM 8.8 mg/dL (8.5-10.1); CO2 26 mmol/L (21-32); GLUCOSE,RANDOM 100 mg/dL (74-106); SGOT/AST 24 U/L (15-37); SGPT/ALT 36 U/L (12-78)
[2016-12-01 07:49] LABS: ALK PHOS 78 U/L (45-117); BILIRUBIN,TOTAL 0.4 mg/dL (0.2-1.0); CREATININE 1.2 mg/dL (0.55-1.02); TOT PROT 6.1 g/dl (6.4-8.2)
[2016-12-01] MEDS: CHOLECALCIFEROL (VITAMIN D3) 1,000 UNIT TABLET (FP) PO SCH (09:42)
[2016-12-01] MEDS: hydrALAZINE HCL 50 MG TABLET (FP) PO SCH ×2 (09:42→21:58)
[2016-12-01] MEDS: METOPROLOL TARTRATE 25 MG TABLET (FP) PO SCH (09:42)
[2016-12-01] MEDS: ASPIRIN 325 MG ENTERIC COATED TABLET (FP) PO SCH (09:42)
[2016-12-01] MEDS: HEPARIN - 25,000 UNIT in SODIUM CHLORIDE 495 ML IV SCH (10:55)
--- NOTE | 2016-12-01 12:33 | PN ---
Progress Note (short form) - Note Progress Note: patient seen and examined today feels well Decreased shortness of breath Decreased pain Overall doing better Vital Signs Temp 98.2 F 12/01/16 08:15 Pulse 72 12/01/16 08:15 Resp 16 12/01/16 08:15 BP 134/74 12/01/16 08:15 Pulse Ox 94 L 11/30/16 21:00 Intake & Output 11/30/16 12/01/16 12/01/16 23:59 11:59 23:59 Intake Total 0 276 0 Balance 0 276 0 Weight 189 lb 8 oz Intake: IV 0 276 Heparin - 25,000 Unit In 276 Normal Saline - 495 ml @ 1,000 UNIT/HR 20 mls/hr IV TITR TERI Rx#: [id number] left forearm 0 Oral 0 Other: Voiding Method Toilet Toilet Toilet # Unmeasured Voids Void 2 Bowel Movement No Weight Measurement Method Standing Scale Active Medications Acetaminophen (Tylenol -) 650 mg PO Q6H PRN PRN Reason: FEVER OR PAIN Last Admin: 11/28/16 23:58 Dose: 650 mg Aspirin (Ecotrin -) 325 mg PO DAILY [facility] Last Admin: 12/01/16 09:42 Dose: 325 mg Atorvastatin Calcium (Lipitor -) 10 mg PO HS [facility] Last Admin: 11/30/16 22:33 Dose: 10 mg Cholecalciferol (Vitamin D3 -) 1,000 unit PO DAILY [facility] Last Admin: 12/01/16 09:42 Dose: 1,000 unit Heparin Sodium (Porcine) (Heparin -) 1,000 unit IVPUSH PRN PRN PRN Reason: Heparin Last Admin: 11/30/16 09:13 Dose: 1,000 unit Heparin Sodium (Porcine) (Heparin -) 5,000 unit IVPUSH PRN PRN PRN Reason: Heparin Last Admin: 11/26/16 21:00 Dose: 5,000 unit Hydralazine HCl (Apresoline -) 50 mg PO BID [facility] Last Admin: 12/01/16 09:42 Dose: 50 mg Heparin Sodium (Porcine) 25, (000 unit/ Sodium Chloride) 500 mls @ 20 mls/hr IV TITR TERI; 1,000 UNIT/HR PRN Reason: Protocol Last Admin: 11/30/16 09:00 Dose: 23 mls/hr Insulin Aspart (Novolog Vial Sliding Scale -) 1 vial SQ TIDAC [facility] PRN Reason: Protocol Last Admin: 12/01/16 12:16 Dose: Not Given Insulin Detemir (Levemir Vial) 5 units SQ [facility] Last Admin: 11/30/16 22:31 Dose: Not Given Losartan Potassium (Cozaar -) 100 mg PO HS [facility] Last Admin: 11/30/16 22:32 Dose: 100 mg Metoprolol Tartrate (Lopressor -) 25 mg PO BID [facility] Last Admin: 12/01/16 09:42 Dose: 25 mg CBC, BMP 12/01/16 05:35 12/01/16 05:35 Physical Exam Constitutional: Yes: No Distress/ comfortable Cardiovascular: Yes: Regular Rate and Rhythm Respiratory: Yes: clear to auscultation Gastrointestinal: Yes: Normal Bowel Sounds, Soft. No: Tenderness Edema: trace Assessment/Plan stable on Heparin drip--switch to Eliquis Discussed with pulmonary Discontinue heparin after starting Eliquis Discussed with nursing staff also Please see telemetry continue present care monitor renal function. will follow Problem List - Problems (1) Acute pulmonary embolism Code(s): I26.99 - OTHER PULMONARY EMBOLISM WITHOUT ACUTE COR PULMONALE (2) CKD (chronic kidney disease) Code(s): N18.9 - CHRONIC KIDNEY DISEASE, UNSPECIFIED (3) NSTEMI (non-ST elevated myocardial infarction) Code(s): I21.4 - NON-ST ELEVATION (NSTEMI) MYOCARDIAL INFARCTION (4) Pleuritic chest pain Code(s): R07.81 - PLEURODYNIA (5) Hypertension Code(s): I10 - ESSENTIAL (PRIMARY) HYPERTENSION Problem List - Problems (1) Acute pulmonary embolism Code(s): I26.99 - OTHER PULMONARY EMBOLISM WITHOUT ACUTE COR PULMONALE (2) CKD (chronic kidney disease) Code(s): N18.9 - CHRONIC KIDNEY DISEASE, UNSPECIFIED (3) NSTEMI (non-ST elevated myocardial infarction) Code(s): I21.4 - NON-ST ELEVATION (NSTEMI) MYOCARDIAL INFARCTION (4) Pleuritic chest pain Code(s): R07.81 - PLEURODYNIA (5) Hypertension Code(s): I10 - ESSENTIAL (PRIMARY) HYPERTENSION
[2016-12-01] MEDS ORDERED: APIXABAN 5 MG TABLET PO SCH ×2 (12:45→18:00)
[2016-12-01 13:04] LABS: BASOPHIL 0.8 % (0-2.0); EOSINOPHIL 4.8 % (0-4.5); MCH 28.5 pg (25.7-33.7); MCHC 33.1 g/dl (32.0-36.0); MEAN CELL VOLUME 86.3 fl (80-96); NEUTROPHILS 52.3 % (42.8-82.8); PLATELET COUNT 321 K/MM3 (134-434); RDW 14.2 % (11.6-15.6); WHITE BLOOD COUNT 7.9 K/mm3 (4.0-10.0)
--- NOTE | 2016-12-01 14:38 | PN ---
Progress Note, Physician Chief Complaint: The patient seen in her bed. Still short of breath, but better. Good urine output is maintained. Family visiting. History of Present Illness: 86 year old woman with PMhx of CKD stage 3, Hypertension, CVA with left sided weakness, DM who presented with right sided chest pain with radiation to the back. The patient ramos h/o underlying CKD. Had CT of the chest that shows Bilateral Pulmonary embolism. ON IV Heparin. - Current Medication List Current Medications: Active Medications Acetaminophen (Tylenol -) 650 mg PO Q6H PRN PRN Reason: FEVER OR PAIN Last Admin: 11/28/16 23:58 Dose: 650 mg Apixaban (Eliquis -) 10 mg PO BID [facility] Aspirin (Asa -) 81 mg PO DAILY [facility] Atorvastatin Calcium (Lipitor -) 10 mg PO HS [facility] Last Admin: 11/30/16 22:33 Dose: 10 mg Cholecalciferol (Vitamin D3 -) 1,000 unit PO DAILY [facility] Last Admin: 12/01/16 09:42 Dose: 1,000 unit Hydralazine HCl (Apresoline -) 50 mg PO BID [facility] Last Admin: 12/01/16 09:42 Dose: 50 mg Insulin Aspart (Novolog Vial Sliding Scale -) 1 vial SQ TIDAC [facility] PRN Reason: Protocol Last Admin: 12/01/16 12:16 Dose: Not Given Insulin Detemir (Levemir Vial) 5 units SQ [facility] Last Admin: 11/30/16 22:31 Dose: Not Given Losartan Potassium (Cozaar -) 100 mg PO HS [facility] Last Admin: 11/30/16 22:32 Dose: 100 mg Metoprolol Tartrate (Lopressor -) 25 mg PO BID [facility] Last Admin: 12/01/16 09:42 Dose: 25 mg - Objective Vital Signs: Vital Signs Temperature 97.6 F 12/01/16 14:32 Pulse Rate 64 12/01/16 14:32 Respiratory Rate 20 12/01/16 14:32 Blood Pressure 135/58 12/01/16 14:32 O2 Sat by Pulse Oximetry (%) 95 12/01/16 09:00 Eyes: Yes: WNL, Conjunctiva Clear HENT: Yes: WNL, Atraumatic, Normocephalic Neck: Yes: WNL, Supple, Trachea Midline Cardiovascular: Yes: WNL, Regular Rate and Rhythm Respiratory: Yes: WNL, Regular, CTA Bilaterally, Diminished, Rhonchi, Wheezes Gastrointestinal: Yes: WNL, Normal Bowel Sounds Musculoskeletal: Yes: WNL Extremities: Yes: WNL Edema: No Integumentary: Yes: WNL Neurological: Yes: WNL, Alert, Oriented ...Motor Strength: WNL Psychiatric: Yes: WNL Labs: CBC, BMP 12/01/16 12:40 12/01/16 05:35 INR, PTT INR 1.02 (0.82-1.09) 11/25/16 06:15 Problem List - Problems (1) CKD (chronic kidney disease) Code(s): N18.9 - CHRONIC KIDNEY DISEASE, UNSPECIFIED (2) Pleuritic chest pain Code(s): R07.81 - PLEURODYNIA (3) Hypertension Code(s): I10 - ESSENTIAL (PRIMARY) HYPERTENSION (4) Acute kidney failure Code(s): N17.9 - ACUTE KIDNEY FAILURE, UNSPECIFIED (5) Acute pulmonary embolism Code(s): I26.99 - OTHER PULMONARY EMBOLISM WITHOUT ACUTE COR PULMONALE Assessment/Plan 86 year old woman with PMhx of CKD stage 3, Hypertension, CVA with left sided weakness, DM who presented with right sided chest pain with radiation to the back. The patient is found to have Bilateral Pulmonary Embolism, and is now in IV Heparin. Has underlying Chronic Kidney disease, from Chronic Microvascular Renal disease. Some degree of acute hemodynamic Renal dysfunction has improved. The Renal functions are stable. The effects of the IV Contrast seems to be minimal at best. Labs ordered for tomorrow. Shanti Joiner MD
--- NOTE | 2016-12-01 14:40 | PN ---
Progress Note (short form) - Note Progress Note: Breathing feels overall better today. No SOB, but mild VOSS. No CP. Intake & Output 11/28/16 11/29/16 11/30/16 12/01/16 23:59 23:59 23:59 23:59 Intake Total 1247 1301 562 576 Balance 1247 1301 562 576 Weight 189 lb 8 oz Last Vital Signs Temp Pulse Resp BP Pulse Ox 97.6 F 64 20 135/58 95 12/01/16 14:32 12/01/16 14:32 12/01/16 14:32 12/01/16 14:32 12/01/16 09:00 Active Medications Acetaminophen (Tylenol -) 650 mg PO Q6H PRN PRN Reason: FEVER OR PAIN Last Admin: 11/28/16 23:58 Dose: 650 mg Apixaban (Eliquis -) 10 mg PO BID [facility] Aspirin (Asa -) 81 mg PO DAILY [facility] Atorvastatin Calcium (Lipitor -) 10 mg PO [facility] Last Admin: 11/30/16 22:33 Dose: 10 mg Cholecalciferol (Vitamin D3 -) 1,000 unit PO DAILY [facility] Last Admin: 12/01/16 09:42 Dose: 1,000 unit Hydralazine HCl (Apresoline -) 50 mg PO BID [facility] Last Admin: 12/01/16 09:42 Dose: 50 mg Insulin Aspart (Novolog Vial Sliding Scale -) 1 vial SQ TIDAC [facility] PRN Reason: Protocol Last Admin: 12/01/16 12:16 Dose: Not Given Insulin Detemir (Levemir Vial) 5 units SQ [facility] Last Admin: 11/30/16 22:31 Dose: Not Given Losartan Potassium (Cozaar -) 100 mg PO [facility] Last Admin: 11/30/16 22:32 Dose: 100 mg Metoprolol Tartrate (Lopressor -) 25 mg PO BID [facility] Last Admin: 12/01/16 09:42 Dose: 25 mg Constitutional: Yes: NAD Eyes: Yes: WNL HENT: Yes: WNL Neck: Yes: WNL Cardiovascular: Yes: Regular Rate and Rhythm, S1, S2 Respiratory: Yes: Diminished Gastrointestinal: Yes: Normal Bowel Sounds, Soft Extremities: Yes: WNL Edema: No Labs: Laboratory Results - last 24 hr 11/30/16 11/30/16 11/30/16 15:20 16:54 22:31 WBC RBC Hgb Hct MCV MCH MCHC RDW Plt Count MPV Neutrophils % Lymphocytes % Monocytes % Eosinophils % Basophils % PTT (Actin FS) 59.3 H Sodium Potassium Chloride Carbon Dioxide Anion Gap BUN Creatinine Creat Clearance w eGFR POC Glucometer 110 107 Random Glucose Calcium Total Bilirubin AST ALT Alkaline Phosphatase Total Protein Albumin 12/01/16 12/01/16 12/01/16 05:35 05:35 05:35 WBC 7.5 RBC 3.73 Hgb 10.6 L Hct 32.0 L MCV 85.9 MCH 28.4 MCHC 33.1 RDW 14.3 Plt Count 284 MPV 7.8 Neutrophils % Lymphocytes % Monocytes % Eosinophils % Basophils % PTT (Actin FS) 65.4 H Sodium 141 Potassium 3.6 Chloride 108 H Carbon Dioxide 26 Anion Gap 7 L BUN 19 H Creatinine 1.2 H Creat Clearance w eGFR 42.70 POC Glucometer Random Glucose 100 Calcium 8.8 Total Bilirubin 0.4 AST 24 ALT 36 Alkaline Phosphatase 78 Total Protein 6.1 L Albumin 2.9 L 12/01/16 12/01/16 12/01/16 06:23 12:13 12:40 WBC 7.9 RBC 4.28 Hgb 12.2 D Hct 36.9 D MCV 86.3 MCH 28.5 MCHC 33.1 RDW 14.2 Plt Count 321 MPV 8.0 Neutrophils % 52.3 Lymphocytes % 33.1 Monocytes % 9.0 Eosinophils % 4.8 H Basophils % 0.8 PTT (Actin FS) Sodium Potassium Chloride Carbon Dioxide Anion Gap BUN Creatinine Creat Clearance w eGFR POC Glucometer 111 102 Random Glucose Calcium Total Bilirubin AST ALT Alkaline Phosphatase Total Protein Albumin Problem List - Problems (1) Pulmonary embolism Code(s): I26.99 - OTHER PULMONARY EMBOLISM WITHOUT ACUTE COR PULMONALE Assessment/Plan Problem List - Problems (1) NSTEMI (non-ST elevated myocardial infarction) Code(s): I21.4 - NON-ST ELEVATION (NSTEMI) MYOCARDIAL INFARCTION (2) Pleuritic chest pain Code(s): R07.81 - PLEURODYNIA (3) Hypertension Code(s): I10 - ESSENTIAL (PRIMARY) HYPERTENSION (4) Bilateral PULMONARY EMBOLISM ?unprovoked vs provoked Assessment/Plan Transition to Eliquis O2 as needed OSAS workup after discharge Will ultimately need all screening to R/O occult malignancy Dr Muniz Problem List - Problems (1) NSTEMI (non-ST elevated myocardial infarction) Code(s): I21.4 - NON-ST ELEVATION (NSTEMI) MYOCARDIAL INFARCTION (2) Pleuritic chest pain Code(s): R07.81 - PLEURODYNIA (3) Hypertension Code(s): I10 - ESSENTIAL (PRIMARY) HYPERTENSION
--- NOTE | 2016-12-01 15:18 | PN ---
Progress Note (short form) - Note Progress Note: CC: PE s: no palps dizzy, +mild sob with exertion remains, cp improved. more hypertensive today. Current Medications Acetaminophen (Tylenol -) 650 mg PO Q6H PRN PRN Reason: FEVER OR PAIN Last Admin: 11/28/16 23:58 Dose: 650 mg Apixaban (Eliquis -) 10 mg PO BID [facility] Stop: 12/07/16 22:01 Apixaban (Eliquis -) 5 mg PO BID [facility] Aspirin (Asa -) 81 mg PO DAILY [facility] Atorvastatin Calcium (Lipitor -) 10 mg PO HS [facility] Last Admin: 11/30/16 22:33 Dose: 10 mg Cholecalciferol (Vitamin D3 -) 1,000 unit PO DAILY [facility] Last Admin: 12/01/16 09:42 Dose: 1,000 unit Hydralazine HCl (Apresoline -) 50 mg PO BID [facility] Last Admin: 12/01/16 09:42 Dose: 50 mg Insulin Aspart (Novolog Vial Sliding Scale -) 1 vial SQ TIDAC [facility] PRN Reason: Protocol Last Admin: 12/01/16 12:16 Dose: Not Given Insulin Detemir (Levemir Vial) 5 units SQ [facility] Last Admin: 11/30/16 22:31 Dose: Not Given Losartan Potassium (Cozaar -) 100 mg PO HS [facility] Last Admin: 11/30/16 22:32 Dose: 100 mg Metoprolol Tartrate (Lopressor -) 25 mg PO BID [facility] Last Admin: 12/01/16 09:42 Dose: 25 mg Vital Signs - 24 hr 11/30/16 11/30/16 11/30/16 18:00 21:00 22:00 Temperature 98.7 F 98 F Pulse Rate 62 73 Respiratory 19 19 Rate Blood Pressure 141/58 167/75 O2 Sat by Pulse 94 L Oximetry (%) 12/01/16 12/01/16 12/01/16 02:26 06:16 08:15 Temperature 98.0 F 98.1 F 98.2 F Pulse Rate 62 63 72 Respiratory 19 19 16 Rate Blood Pressure 123/46 176/79 134/74 O2 Sat by Pulse Oximetry (%) 12/01/16 12/01/16 09:00 14:32 Temperature 97.6 F Pulse Rate 64 Respiratory 20 Rate Blood Pressure 135/58 O2 Sat by Pulse 95 Oximetry (%) Intake & Output 11/29/16 11/30/16 12/01/16 12/02/16 07:59 07:59 07:59 07:59 Intake Total 1195 1663 276 300 Balance 1195 1663 276 300 Weight 189 lb 8 oz Constitutional: Yes: Well Nourished, No Distress Eyes: No: Sclera Icterus Respiratory: Yes: diminished air movement, bibasilar crackles. No: Accessory Muscle Use, Rales, Wheezes Gastrointestinal: Yes: Normal Bowel Sounds. No: Distention, Hepatomegaly, Palpable Mass, Tenderness Cardiovascular: Yes: Regular Rate and Rhythm JVD: No Heart Sounds: Yes: S1, S2. No: Gallop Murmur: No: Systolic Murmur, Diastolic Murmur Extremities: No: Cold, Cyanosis Edema: No (no induratn/cord/tender) Integumentary: No: Jaundice diaphoresis Neurological: Yes: Alert, Oriented (x3) Psychiatric: No: Agitated - Other Data Labs, Other Data: CBC, BMP 12/01/16 12:40 12/01/16 05:35 Laboratory Tests 12/01/16 05:35 Total Bilirubin 0.4 AST 24 ALT 36 Alkaline Phosphatase 78 Albumin 2.9 L CTA 11/2016: multiple filling defects, PE noted in both rt and left upper and lower pulmonary arteries. RLL consolidation/atelectasis with associated effusion. MIBI 10/05: no ischemia or scar, hyper EF Echo 11/2016: nl lv/rv. grade 1 diastolic dysfunction. 1+ lae, 1+ mr, mod TR. rvsp 30-40. Echo 05/07: nl LV, nl RV; mild AI CXR (gitig review): clear lungs/pleura, no vasc redistribution, doubt small R effusion EKG 11/25: NSR, normal axis/intervals; no path q's; nonsp TWIs v2/v3 and flat T's in V4--new vs prior (10/28/16) tele: sr a/p: 86 yo with htn, HL, niddm, cva with residual right sided weakness, CKD ( bline cr 1.3), COPD, O2 Dependent, prior PE, p/w cp and troponin elevation of 0.9. atypical (right sided, pleuritic) CP, NSTEMI: -chronic sob, with prior noninvasive CV w/u negative including recently with repeat MPI (10/05) and echo (05/07)--sx's not changed of late -now with 2d of R chest pain near axillary line to back, positional/tender and pleuritic. trop 0.9 initially, nonspecific ecg changes vs prior. -sx's NOT SUSPICIOUS FOR ACS nd now cta chest 11/29 confirms b/l PE's which would explain sxs and mild trop elevation - LE venous dopplers --> neg for dvt. -cont AC for PE's, transitioned to eliquis. diast chf: -elevated bnp likely 2/2 PE and not from acute heart failure exacerbation. s/p IVF here with only small effusion in area of RLL consolidation on CT. Weigh remains lower than recent office weight of 194 lbs. - daily weights, bmp. If briseno does not return to baseline consider repeat cxr and need for diuretic. MICHAEL on CKD: -per dr hathaway, pt creat at baseline (09/04) was 1.3; -was up to 1.9 last month in ER. 1.5 here on presentation. Now back to baseline after ivfs HTN: -12/01: bp running high today, will resume prior home regimen (additional nifedipine, coreg instead of metoprolol). However, patient believes coreg was making her feel sick so will resume home regimen except will keep metoprolol on instead of coreg. (BB changed here on admit in setting of possible nstemi). ? prior h/o CVA - had been on ASA. Now on AC. Will defer to outpatient physicians regarding need for ongoing ASA. hgb stable here. stable from CV perspective. OK to d/c telemetry.
[2016-12-01] MEDS: APIXABAN 5 MG TABLET PO SCH (17:29)
[2016-12-01] MEDS: LOSARTAN POTASSIUM 50 MG TABLET (FP) PO SCH (21:58)
[2016-12-01] MEDS: ATORVASTATIN CA 10 MG TABLET (FP) PO SCH (21:59)
[2016-12-01] MEDS: METOPROLOL SUCCINATE 25 MG TAB.SR.24H (FP) PO SCH (21:59)
[2016-12-01] MEDS: INSULIN DETEMIR 100 UNITS/ML MDV SQ SCH (21:59)
[2016-12-01] MEDS ORDERED: CARVEDILOL 6.25 MG TABLET (FP) PO SCH (22:00)
[2016-12-02] MEDS: INSULIN SLIDING SCALE (NOVOLOG) 1 VIAL SQ SCH ×2 (06:55→12:17)
[2016-12-02 08:02] LABS: ALK PHOS 80 U/L (45-117); ANION GAP 10 (8-16); BILIRUBIN,TOTAL 0.4 mg/dL (0.2-1.0); CALCIUM 8.9 mg/dL (8.5-10.1); CO2 26 mmol/L (21-32); CREATININE 1.2 mg/dL (0.55-1.02); GLUCOSE,RANDOM 97 mg/dL (74-106); SGOT/AST 26 U/L (15-37); SGPT/ALT 37 U/L (12-78); TOT PROT 6.4 g/dl (6.4-8.2)
--- NOTE | 2016-12-02 08:42 | PN ---
Progress Note, Physician Chief Complaint: PE History of Present Illness: no more pleuritic cp mild sob walking up and down siegel--BETTER than her longstanding baseline she says no leg swelling, palpitations - Current Medication List Current Medications: Active Medications Acetaminophen (Tylenol -) 650 mg PO Q6H PRN PRN Reason: FEVER OR PAIN Last Admin: 11/28/16 23:58 Dose: 650 mg Apixaban (Eliquis -) 10 mg PO BID [facility] Stop: 12/07/16 22:01 Last Admin: 12/01/16 17:29 Dose: 10 mg Apixaban (Eliquis -) 5 mg PO BID [facility] Aspirin (Asa -) 81 mg PO DAILY [facility] Atorvastatin Calcium (Lipitor -) 10 mg PO HS [facility] Last Admin: 12/01/16 21:59 Dose: 10 mg Cholecalciferol (Vitamin D3 -) 1,000 unit PO DAILY [facility] Last Admin: 12/01/16 09:42 Dose: 1,000 unit Hydralazine HCl (Apresoline -) 50 mg PO BID [facility] Last Admin: 12/01/16 21:58 Dose: 50 mg Insulin Aspart (Novolog Vial Sliding Scale -) 1 vial SQ TIDAC [facility] PRN Reason: Protocol Last Admin: 12/02/16 06:55 Dose: Not Given Insulin Detemir (Levemir Vial) 5 units SQ [facility] Last Admin: 12/01/16 21:59 Dose: Not Given Losartan Potassium (Cozaar -) 100 mg PO HS [facility] Last Admin: 12/01/16 21:58 Dose: 100 mg Metoprolol Succinate (Toprol Xl -) 25 mg PO BID [facility] Last Admin: 12/01/16 21:59 Dose: 25 mg Nifedipine (Procardia Xl -) 30 mg PO DAILY [facility] - Objective Vital Signs: Vital Signs Temperature 98.6 F 12/02/16 06:00 Pulse Rate 58 L 12/02/16 06:00 Respiratory Rate 18 12/02/16 06:00 Blood Pressure 139/67 12/02/16 06:00 O2 Sat by Pulse Oximetry (%) 98 12/01/16 21:00 Constitutional: Yes: Well Nourished, No Distress, Calm Cardiovascular: Yes: Regular Rate and Rhythm, S1, S2. No: Gallop, Murmur Respiratory: Yes: Regular, CTA Bilaterally. No: Accessory Muscle Use, Rales, Wheezes Extremities: No: Cold Edema: No Neurological: Yes: Alert, Oriented Psychiatric: No: Agitated Labs: CBC, BMP 12/01/16 12:40 12/02/16 05:35 INR, PTT INR 1.02 (0.82-1.09) 11/25/16 06:15 Assessment/Plan CTA 11/2016: multiple filling defects, PE noted in both rt and left upper and lower pulmonary arteries. RLL consolidation/atelectasis with associated effusion. MIBI 10/05: no ischemia or scar, hyper EF Echo 11/2016: nl lv/rv. grade 1 diastolic dysfunction. 1+ lae, 1+ mr, mod TR. rvsp 30-40. Echo 05/07: nl LV, nl RV; mild AI CXR (gitig review): clear lungs/pleura, no vasc redistribution, doubt small R effusion EKG 11/25: NSR, normal axis/intervals; no path q's; nonsp TWIs v2/v3 and flat T's in V4--new vs prior (10/28/16) a/p: 86 yo with htn, HL, niddm, cva with residual right sided weakness, CKD ( bline cr 1.3), COPD, O2 Dependent, prior PE, p/w cp and troponin elevation of 0.9. acute PEs (bilateral): -cont AC--transitioned to eliquis. -hypercoagulable w/u, including malignancy screening, per pmd diast chf: -elevated bnp likely 2/2 PE and not from acute heart failure exacerbation, with cxr clear on admit. -s/p IVF here with only small effusion in area of RLL consolidation on CT. Weight remains lower than recent office weight of 194 lbs. MICHAEL on CKD: -per dr hathaway, pt creat at baseline (09/04) was 1.3; -was up to 1.9 in 11/04 in ER. 1.5 here on presentation. Now back to baseline after ivfs HTN: -bp mostly controlled -same meds ? prior h/o CVA - had been on ASA. Now on AC. Will defer to outpatient physicians regarding need for ongoing ASA. hgb stable here. TELE OFF
[2016-12-02 09:41] VITALS: BP 136/74; PULSE 64; TEMP 98.2
[2016-12-02] MEDS: hydrALAZINE HCL 50 MG TABLET (FP) PO SCH (09:42)
[2016-12-02] MEDS: CHOLECALCIFEROL (VITAMIN D3) 1,000 UNIT TABLET (FP) PO SCH (09:43)
[2016-12-02] MEDS: METOPROLOL SUCCINATE 25 MG TAB.SR.24H (FP) PO SCH (09:43)
[2016-12-02] MEDS: APIXABAN 5 MG TABLET PO SCH (09:43)
[2016-12-02] MEDS ORDERED: ASPIRIN 81 MG CHEWABLE TABLETS PO SCH (10:00)
[2016-12-02] MEDS ORDERED: NIFEdipine E.R. 30 MG TABLET (FP) PO SCH (10:00)
--- NOTE | 2016-12-02 12:35 | PN ---
Progress Note (short form) - Note Progress Note: PULMONARY Breathing still not at baseline but significantly improved. No chest pain. Last Vital Signs Temp Pulse Resp BP Pulse Ox 98.2 F 64 14 136/74 96 12/02/16 08:10 12/02/16 08:10 12/02/16 09:00 12/02/16 08:10 12/02/16 09:00 Gen: NAD at rest Heart: RRR Lung: decreased breath sounds at the bases Abd: soft, nontender Ext: no edema CBC, BMP 12/01/16 12:40 12/02/16 05:35 Active Medications Acetaminophen (Tylenol -) 650 mg PO Q6H PRN PRN Reason: FEVER OR PAIN Last Admin: 11/28/16 23:58 Dose: 650 mg Apixaban (Eliquis -) 10 mg PO BID [facility] Stop: 12/07/16 22:01 Last Admin: 12/02/16 09:43 Dose: 10 mg Apixaban (Eliquis -) 5 mg PO BID [facility] Aspirin (Asa -) 81 mg PO DAILY [facility] Last Admin: 12/02/16 09:43 Dose: 81 mg Atorvastatin Calcium (Lipitor -) 10 mg PO HS [facility] Last Admin: 12/01/16 21:59 Dose: 10 mg Cholecalciferol (Vitamin D3 -) 1,000 unit PO DAILY [facility] Last Admin: 12/02/16 09:43 Dose: 1,000 unit Hydralazine HCl (Apresoline -) 50 mg PO BID [facility] Last Admin: 12/02/16 09:42 Dose: 50 mg Insulin Aspart (Novolog Vial Sliding Scale -) 1 vial SQ TIDAC [facility] PRN Reason: Protocol Last Admin: 12/02/16 12:17 Dose: Not Given Insulin Detemir (Levemir Vial) 5 units SQ HS [facility] Last Admin: 12/01/16 21:59 Dose: Not Given Losartan Potassium (Cozaar -) 100 mg PO HS [facility] Last Admin: 12/01/16 21:58 Dose: 100 mg Metoprolol Succinate (Toprol Xl -) 25 mg PO BID [facility] Last Admin: 12/02/16 09:43 Dose: 25 mg Nifedipine (Procardia Xl -) 30 mg PO DAILY [facility] Last Admin: 12/02/16 09:43 Dose: 30 mg A/P Bilateral Pulmonary Emboli Pulmonary HTN +Troponins LV Diastolic Dysfunction Acute on Chronic Renal Failure COPD Chronic Hypoxic Respiratory Failure HTN - continue anticoagulation - outpt hypercoagulable work up - age appropriate cancer screening as outpt - O2 to keep SpO2>90%
--- NOTE | 2016-12-02 13:05 | DS ---
Physical Examination Vital Signs: Vital Signs Temperature 98.2 F 12/02/16 08:10 Pulse Rate 64 12/02/16 08:10 Respiratory Rate 14 12/02/16 09:00 Blood Pressure 136/74 12/02/16 08:10 O2 Sat by Pulse Oximetry (%) 96 12/02/16 09:00 Findings/Remarks: feels well no complains denies pain. ambulating in siegel way denies sob-- says much better Constitutional: Yes: No Distress, Calm Eyes: Yes: Conjunctiva Clear Neck: Yes: Supple Cardiovascular: Yes: Regular Rate and Rhythm Respiratory: Yes: CTA Bilaterally Gastrointestinal: Yes: Soft Edema: No Neurological: Yes: Alert Psychiatric: Yes: Alert Labs: CBC, BMP 12/01/16 12:40 12/02/16 05:35 Discharge Summary Reason For Visit: NSTEMI; PLEURAL CHEST PAIN Current Active Problems Acute kidney failure (Acute) Acute pulmonary embolism (Acute) CKD (chronic kidney disease) (Acute) NSTEMI (non-ST elevated myocardial infarction) (Acute) Pleuritic chest pain (Acute) Pulmonary embolism (Acute) Hospital Course: admitted for cp Borderline elevation of troponins work up revealed PE cardiology/ pulmonary followed now much better will d/c today discussed with pulmonary- Dr. Rivera Pt instructed to take Eliquis 5 mg - 2 tbs bid x 6 more days and then one tab bid f/u in office in one week meds reconciled eprescribed pt in agreement d/c time 40 min in [place]/ documenting / coordating care discussed with nursing staff also Condition: Stable - Instructions Referrals: Neda Robertson MD [Primary Care Provider] - Disposition: HOME - Home Medications Comprehensive Discharge Medication List: Ambulatory Orders Carvedilol 6.25 mg PO BID tablet 03/09/14 Cholecalciferol (Vitamin D3) [Vitamin D3] 1,000 unit PO DAILY 03/09/14 Losartan Potassium 100 mg PO DAILY 03/09/14 Glipizide Xl [Glucotrol Xl -] 2.5 mg PO DAILY 10/28/16 Hydralazine HCl 50 mg PO BID 10/28/16 Nifedipine ER [Procardia XL -] 30 mg PO DAILY 11/25/16 Acetaminophen [Tylenol .Regular Strength -] 650 mg PO Q6H PRN #0 tablet Apixaban [Eliquis -] 5 mg PO BID 30 Days 12/02/16 Apixaban [Eliquis] 5 mg PO BID #60 tablet 12/02/16 Aspirin [ASA -] 81 mg PO DAILY tab.chew 12/02/16 Atorvastatin Ca [Lipitor] 10 mg PO HS #30 tablet 12/02/16
--- NOTE | 2016-12-02 15:52 | PN ---
Progress Note (short form) - Note Progress Note: Renal Follow up for CKD Pt seen and examined at the bedside no acute complaints denies any sob, chest pain, N/V/D good urine output Vital Signs Temperature 98.2 F 12/02/16 08:10 Pulse Rate 64 12/02/16 08:10 Respiratory Rate 14 12/02/16 09:00 Blood Pressure 136/74 12/02/16 08:10 O2 Sat by Pulse Oximetry (%) 96 12/02/16 09:00 Intake & Output 11/29/16 11/30/16 12/01/16 12/02/16 23:59 23:59 23:59 23:59 Intake Total 4613 827 3526 210 Balance 7089 749 3643 210 Weight 189 lb 8 oz 186 lb Gen: NAD, awake and alert CVS: RRR, No M/R Lungs:CTA, no rales or wheeze Abd: soft NT/ND Ext: No edema, clubbing or cyanosis CBC, BMP 12/01/16 12:40 12/02/16 05:35 Current Medications Acetaminophen (Tylenol -) 650 mg PO Q6H PRN PRN Reason: FEVER OR PAIN Last Admin: 11/28/16 23:58 Dose: 650 mg Apixaban (Eliquis -) 10 mg PO BID [facility] Stop: 12/07/16 22:01 Last Admin: 12/02/16 09:43 Dose: 10 mg Apixaban (Eliquis -) 5 mg PO BID [facility] Aspirin (Asa -) 81 mg PO DAILY [facility] Last Admin: 12/02/16 09:43 Dose: 81 mg Atorvastatin Calcium (Lipitor -) 10 mg PO HS [facility] Last Admin: 12/01/16 21:59 Dose: 10 mg Cholecalciferol (Vitamin D3 -) 1,000 unit PO DAILY [facility] Last Admin: 12/02/16 09:43 Dose: 1,000 unit Hydralazine HCl (Apresoline -) 50 mg PO BID [facility] Last Admin: 12/02/16 09:42 Dose: 50 mg Insulin Aspart (Novolog Vial Sliding Scale -) 1 vial SQ TIDAC [facility] PRN Reason: Protocol Last Admin: 12/02/16 12:17 Dose: Not Given Insulin Detemir (Levemir Vial) 5 units SQ HS [facility] Last Admin: 12/01/16 21:59 Dose: Not Given Losartan Potassium (Cozaar -) 100 mg PO HS [facility] Last Admin: 12/01/16 21:58 Dose: 100 mg Metoprolol Succinate (Toprol Xl -) 25 mg PO BID [facility] Last Admin: 12/02/16 09:43 Dose: 25 mg Nifedipine (Procardia Xl -) 30 mg PO DAILY [facility] Last Admin: 12/02/16 09:43 Dose: 30 mg A/P 86 year old woman with PMhx of CKD stage 3, Hypertension, CVA with left sided weakness, DM who presented with right sided chest pain with radiation to the back with Cr of 1.3. #CKD stage 3 with contrast exposure Renal function stable 72 hours s/p contrast exposure continue losartan at present dose follow up in the office in 1 month #Atypical chest pain/NSTEMI with PE CTA + for PE on Eliquis #Hypertension Continue Hydralazine, Metoprolol, Losartan BP is at goal Thank you Clif Martínez DO Problem List - Problems (1) CKD (chronic kidney disease) Code(s): N18.9 - CHRONIC KIDNEY DISEASE, UNSPECIFIED (2) NSTEMI (non-ST elevated myocardial infarction) Code(s): I21.4 - NON-ST ELEVATION (NSTEMI) MYOCARDIAL INFARCTION (3) Pleuritic chest pain Code(s): R07.81 - PLEURODYNIA (4) Hypertension Code(s): I10 - ESSENTIAL (PRIMARY) HYPERTENSION
[2016-12-08] MEDS ORDERED: APIXABAN 5 MG TABLET PO SCH (10:00)
== END 2016-12-02 16:08 | disposition home or self-care (01) | DRG 280 ==
LOC: JER 05:19 → UNDOADMIN 11:40 → JERBED 11:40 → J4W 23:00
PROVIDERS: ADMIT Internal Medicine; ATTEND Internal Medicine
DX: I21.4 Non-ST elevation (NSTEMI) myocardial infarction (principal); I26.99 Other pulmonary embolism without acute cor pulmonale; I50.31 Acute diastolic (congestive) heart failure; J96.11 Chronic respiratory failure with hypoxia; N17.9 Acute kidney failure, unspecified; J98.11 Atelectasis; I13.0 Hypertensive heart and chronic kidney disease with heart failure and stage 1 through stage 4 chronic kidney disease, or unspecified chronic kidney disease; I69.354 Hemiplegia and hemiparesis following cerebral infarction affecting left non-dominant side; I27.2 Other secondary pulmonary hypertension; J44.9 Chronic obstructive pulmonary disease, unspecified; N18.3 Chronic kidney disease, stage 3 (moderate)
CPT/HCPCS: 36415; 71010-TC; 71020-TC; 71101-TC-RT; 71275-TC; 78582-TC; 80048; 80053; 80061; 81003; 82553; 83036; 83721; 83735; 83880; 84100; 84484; 85025; 85027; 85610; 85730; 87086; 93005; 93010; 93306-TC; 93970-TC; 99285-25; A9539; A9540; J1644

== ENCOUNTER 2017-01-25 19:18 | Observation (INO) | payer OTHER ==
[2017-01-25 19:33] VITALS: BMI 28.5
[2017-01-25] MEDS ORDERED: SODIUM CHLORIDE 500 ML IV STA (20:07)
[2017-01-25 20:32] LABS: BASOPHIL 0.9 % (0-2.0); EOSINOPHIL 3.5 % (0-4.5); MCH 28.9 pg (25.7-33.7); MCHC 33.4 g/dl (32.0-36.0); MEAN CELL VOLUME 86.6 fl (80-96); MEAN PLT VOLUME 8.3 fl (7.5-11.1); NEUTROPHILS 50.6 % (42.8-82.8); PLATELET COUNT 250 K/MM3 (134-434); RDW 14.9 % (11.6-15.6); WHITE BLOOD COUNT 6.2 K/mm3 (4.0-10.0)
--- NOTE | 2017-01-25 20:35 | PDOC ---
History of Present Illness - General History Source: Patient Exam Limitations: No Limitations - History of Present Illness Initial Comments: 01/26/17 00:10 The patient is a 86 year old female with a significant past medical history of VA, PE, Gout, diabetes, HTN, CVA, and CAD who presents to the ED with complaints of lightheadedness, chest pain, sob since earlier. The patient states she was at her baseline this morning when she had a sudden onset of lightheadedness. She states that she feels like she is on a boat. Patient reports she later developed a pain under her left breast that she describes as a nagging pain. She states her left sided breast pain is worsened with change in position. She also reports she developed headache, an increase in intermittent shortness of breath, and lack of energy. Patient states she visited her PCP yesterday for a routine checkup and had a normal visit. Patient is compliant with her medications. Denies fever or chills. Denies focal tingling or numbness. Denies vision changes or change in mental status. Denies abdominal pain, nausea, vomiting, or diarrhea. Denies any other symptoms. <Carleen Hess - Last Filed: 01/26/17 01:07> <Mekhi García - Last Filed: 01/26/17 02:02> - General Chief Complaint: Weakness Stated Complaint: FATIGUE Time Seen by Provider: 01/25/17 19:45 Past History <Carleen Hess - Last Filed: 01/26/17 01:07> - Past Medical History CVA: Yes (2000, mild right sided weakness) Diabetes: Yes HTN: Yes Hypercholesterolemia: Yes Other medical history: PE - Surgical History Orthopedic Surgery: Yes (left knee surgery) - Suicide/Smoking/Psychosocial Hx Smoking Status: No Smoking History: Never smoked Have you smoked in the past 12 months: No Number of Cigarettes Smoked Daily: 0 Information on smoking cessation initiated: No Hx Alcohol Use: No Drug/Substance Use Hx: No Substance Use Type: None Hx Substance Use Treatment: No <Mekhi García - Last Filed: 01/26/17 02:02> - Past Medical History Allergies/Adverse Reactions: Allergies Allergy/AdvReac Type Severity Reaction Status Date / Time Sulfa (Sulfonamide Allergy Intermediate Hives Verified 01/25/17 19:29 Antibiotics) peanut Allergy Unknown Verified 01/25/17 19:29 Home Medications: Ambulatory Orders Cholecalciferol (Vitamin D3) [Vitamin D3] 1,000 unit PO DAILY 03/09/14 Losartan Potassium 100 mg PO DAILY 03/09/14 Glipizide Xl [Glucotrol Xl -] 2.5 mg PO DAILY 10/28/16 Hydralazine HCl 50 mg PO BID 10/28/16 Nifedipine ER [Procardia XL -] 30 mg PO DAILY 11/25/16 Acetaminophen [Tylenol .Regular Strength -] 650 mg PO Q6H PRN #0 tablet Apixaban [Eliquis] 5 mg PO BID #60 tablet 12/02/16 Aspirin [Ecotrin] 81 mg PO DAILY #30 tablet. 12/02/16 Metoprolol Succinate [Toprol XL -] 25 mg PO BID #120 tab 12/02/16 Review of Systems - Review of Systems Able to Perform ROS?: Yes Comments:: 01/26/17 00:10 CONSTITUTIONAL: + generalized weakness No reported: Fever, Chills, Diaphoresis,, Loss of Appetite HEENT: No reported: Rhinorrhea, Nasal Congestion, Throat Pain, Throat Swelling, Difficulty Swallowing, Mouth Swelling, Ear Pain, Eye Pain, Visual Changes CARDIOVASCULAR: + chest pain No reported: Syncope, Palpitations, Irregular Heart Rate, Lightheadedness, Peripheral Edema RESPIRATORY: + SOB No reported: Cough, SOB with Exertion, Orthopnea, Wheezing, Stridor, Hemoptysis GASTROINTESTINAL: No reported: Abdominal pain, Abdominal Distension, Nausea, Vomiting, Diarrhea, Constipation, Melena, Hematochezia GENITOURINARY: No reported: Dysuria, Frequency, Urgency, Hesitancy, Flank Pain, Genital Pain MUSCULOSKELETAL: No reported: Myalgia, Arthralgia, Joint Swelling, Back pain, Neck Pain SKIN: No reported: Rash, Itching, Pallor HEMEATOLOGIC/IMMUNOLOGIC: No reported: Easy Bleeding, Easy Bruising, Lymphadenopathy, Frequent infections ENDOCRINE: No reported: Unexplained Weight Gain, Unexplained Weight Loss, Heat Intolerance , Cold Intolerance NEUROLOGIC: + headache, lightheadedness No reported: Focal Weakness, Paresthesias, Vertigo, Unsteady Gait, Seizure, Mental Status Changes, Incontinence PSYCHIATRIC: No reported: Anxiety, Depression All Other Systems: Reviewed and Negative <Carleen Hess - Last Filed: 01/26/17 01:07> *Physical Exam - Vital Signs Last Vital Signs Temp Pulse Resp BP Pulse Ox 97.7 F 66 20 186/82 100 01/25/17 19:30 01/25/17 19:30 01/25/17 19:30 01/25/17 19:30 01/25/17 19:30 - Physical Exam Comments: 01/26/17 00:10 GENERAL: The patient is awake, alert, and fully oriented, Nontoxic - in no acute distress. HEAD: Normocephalic, atraumatic. EYES: extraocular movements intact, sclera anicteric, conjunctiva clear. no nystagmus noted ENT: Normal voice, Moist mucous membranes. NECK: Normal range of motion, supple LUNGS: Breath sounds equal, clear to auscultation bilaterally. No wheezes, no rhonchi, no rales. HEART: Regular rate and rhythm, without murmur, rub or gallop. ABDOMEN: Soft, nontender, normoactive bowel sounds. No guarding, no rebound.No CVA tenderness EXTREMITIES: Normal range of motion, no edema. No clubbing or cyanosis. No cords, erythema, or tenderness. NEUROLOGICAL: No facial assymetry, Normal speech, normal rapid alternating movements, normal finger to nose, PSYCH: Normal mood, normal affect. SKIN: Warm, Dry, normal turgor, <JimenaAndryileana - Last Filed: 01/26/17 01:07> - Vital Signs Last Vital Signs Temp Pulse Resp BP Pulse Ox 97.7 F 66 20 186/82 100 01/25/17 19:30 01/25/17 19:30 01/25/17 19:30 01/25/17 19:30 01/25/17 19:30 <Mekhi García - Last Filed: 01/26/17 02:02> Heart Score/ECG Review - ECG Impressions Comment:: 01/25/17 23:48 Twelve-lead EKG was performed and reviewed by me. There is normal sinus rhythm with a normal rate. Rate of 63 The axis is normal. The intervals are normal. There is normal R wave progression There are no ST or T wave abnormalities. Impression: Normal twelve-lead EKG <Mekhi García - Last Filed: 01/26/17 02:02> ED Treatment Course - LABORATORY CBC & Chemistry Diagram: 01/25/17 20:15 01/25/17 20:15 - ADDITIONAL ORDERS Additional order review: Laboratory Results 01/25/17 01/25/17 01/25/17 22:30 20:15 20:15 Sodium 139 Potassium 4.4 Chloride 107 Carbon Dioxide 24 Anion Gap 8 BUN 31 H D Creatinine 1.3 H Creat Clearance w eGFR 38.93 Random Glucose 102 Calcium 9.1 Total Bilirubin 0.3 D AST 24 ALT 27 D Alkaline Phosphatase 71 Creatine Kinase 236 H Creatine Kinase Index 0.9 CK-MB (CK-2) 2.173 Troponin I < 0.02 Total Protein 7.1 Albumin 3.4 Urine Color Straw Urine Appearance Clear Urine pH 6.0 Urine Protein Negative Urine Glucose (UA) Negative Urine Ketones Negative Urine Blood Negative Urine Nitrite Negative Urine Bilirubin Negative Urine Urobilinogen Negative 01/25/17 20:15 RBC 3.92 MCV 86.6 MCHC 33.4 RDW 14.9 MPV 8.3 Neutrophils % 50.6 Lymphocytes % 34.6 Monocytes % 10.4 H Eosinophils % 3.5 Basophils % 0.9 - Medications Given in the ED: ED Medications Discontinued Medications Generic Name Dose Route Start Last Admin Trade Name Freq PRN Reason Stop Dose Admin Sodium Chloride 500 mls @ 500 mls/hr 01/25/17 20:07 01/25/17 20:40 Normal Saline - IV 01/25/17 21:06 500 mls/hr ASDIR STA Administration Meclizine HCl 25 mg 01/25/17 20:48 01/25/17 21:05 Antivert - PO 01/25/17 20:49 25 mg ONCE ONE Administration <Carleen Hess - Last Filed: 01/26/17 01:07> - LABORATORY CBC & Chemistry Diagram: 01/25/17 20:15 01/25/17 20:15 - ADDITIONAL ORDERS Additional order review: 01/25/17 20:15 RBC 3.92 MCV 86.6 MCHC 33.4 RDW 14.9 MPV 8.3 Neutrophils % 50.6 Lymphocytes % 34.6 Monocytes % 10.4 H Eosinophils % 3.5 Basophils % 0.9 <Mekhi García - Last Filed: 01/26/17 02:02> Medical Decision Making - Medical Decision Making 01/26/17 01:[address] Neda Hathaway at 1:05. Accepted for admission, observation telemetry <Carleen Hess - Last Filed: 01/26/17 01:07> - Medical Decision Making 01/25/17 20:51 86y F hx of dm, htn, hl, PE, presents with complaint of feeling unwell, pt is not very specific and includes feeling lightheaded, intermittent L sided chest pain that seems positional, feeling slightly sob since today. pts exam is essentially unremarkble including an intact neuro exam. differential is wide and includes anemi, metabolic derangement, acs, occult infection, will ck cbc, cmp, trop, ekg, ua will gentlly hydrate, will give some meclizine will reasesss A portion of this note was documented by scribe services under my direction. I have reviewed the details of the note, within reason, and agree with the documentation with the following case summary and management plan written by me 01/26/17 00:40 labs reviewed unremarkable pt sitll with chest pain will observe in ED for risk stratefication for cp will notify dr. Hathaway 01/26/17 01:[address] hathaway agree with admission for further management obsevation in telemetry for acs Case discussed in detail with admitting physician including history, physical exam and ancillary studies. Admitting physician has assumed care for the patient, will follow all pending diagnostics and will complete the evaluation and treatment. <Mekhi García - Last Filed: 01/26/17 02:02> *DC/Admit/Observation/Transfer - Attestations Scribe Attestion: 01/26/17 00:10 Documentation prepared by Carleen Hess, acting as medical device engineer for Mekhi García MD <Carleen Hess - Last Filed: 01/26/17 01:07> - Discharge Dispostion Admit: Yes <Mekhi García - Last Filed: 01/26/17 02:02> Diagnosis at time of Disposition: Chest pain Qualifiers: Chest pain type: unspecified Qualified Code(s): R07.9 - Chest pain, unspecified ; R07.9 - Chest pain, unspecified - Discharge Dispostion Condition at time of disposition: Stable - Referrals Referrals: Neda Hathaway MD [Primary Care Provider] -
[2017-01-25] MEDS ORDERED: MECLIZINE HCL 25 MG TABLET (FP) PO ONE (20:48)
[2017-01-25] MEDS ORDERED: MECLIZINE HCL 25 MG TABLET (FP) ONE (21:00)
[2017-01-25 21:02] LABS: ALBUMIN 3.4 g/dl (3.4-5.0); ANION GAP 8 (8-16); CALCIUM 9.1 mg/dL (8.5-10.1); CO2 24 mmol/L (21-32); CREATININE 1.3 mg/dL (0.55-1.02); GLUCOSE,RANDOM 102 mg/dL (74-106); SGOT/AST 24 U/L (15-37); SGPT/ALT 27 U/L (12-78)
[2017-01-25 21:04] LABS: ALK PHOS 71 U/L (45-117); BILIRUBIN,TOTAL 0.3 mg/dL (0.2-1.0); TOT PROT 7.1 g/dl (6.4-8.2)
[2017-01-25 21:19] LABS: CPK 236 IU/L (26-192); TROPONIN I < 0.02 ng/ml (0.00-0.05)
[2017-01-25 22:46] LABS: URINE APPEARANCE CLEAR; URINE BILIRUBIN NEGATIVE (NEGATIVE); URINE BLOOD NEGATIVE (NEGATIVE); URINE COLOR STRAW; URINE GLUCOSE (UA) NEGATIVE (NEGATIVE); URINE KETONE NEGATIVE (NEGATIVE); URINE NITRITE NEGATIVE (NEGATIVE); URINE PROTEIN NEGATIVE (NEGATIVE); URINE UROBILINOGEN NEGATIVE mg/dL (0.2-1.0)
[2017-01-26] MEDS ORDERED: ACETAMINOPHEN 325 MG TABLET (FP) PO ONE (00:40)
[2017-01-26] MEDS ORDERED: ACETAMINOPHEN 325 MG TABLET (FP) ONE (00:47)
[2017-01-26] MEDS ORDERED: ACETAMINOPHEN 325 MG TABLET (FP) PO PRN (08:02)
[2017-01-26] MEDS ORDERED: PT OWN MED DRAWER 7, Y5N ONE (09:22)
[2017-01-26 09:28] LABS: CPK 192 IU/L (26-192); TROPONIN I < 0.02 ng/ml (0.00-0.05)
[2017-01-26] MEDS: ASPIRIN COATED 81 MG TABLET.EC PO SCH (09:43)
[2017-01-26] MEDS: APIXABAN 5 MG TABLET PO SCH ×2 (09:43→22:20)
--- NOTE | 2017-01-26 09:47 | HP ---
Admitting History and Physical - Primary Care Physician PCP: Neda Robertson - Admission Chief Complaint: chest pain History of Present Illness: 86 yrs old female admitted for sharp chest pain underneath left breast-- occurs in a few seconds No SOB No dizziness, lightheadedness. 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: CVA Cardiovascular: Yes: HTN Pulmonary: Yes: Pulmonary Embolus (recent diagnosis of PE on Eliquis) Renal/: Yes: Renal Inusuff - Smoking History Smoking history: Never smoked Have you smoked in the past 12 months: No Aproximately how many cigarettes per day: 0 - Alcohol/Substance Use Hx Alcohol Use: No Home Medications - Allergies Allergies/Adverse Reactions: Allergies Allergy/AdvReac Type Severity Reaction Status Date / Time Sulfa (Sulfonamide Allergy Intermediate Hives Verified 01/25/17 19:29 Antibiotics) peanut Allergy Unknown Verified 01/25/17 19:29 - Home Medications Home Medications: Ambulatory Orders Cholecalciferol (Vitamin D3) [Vitamin D3] 1,000 unit PO DAILY 03/09/14 Losartan Potassium 100 mg PO DAILY 03/09/14 Glipizide Xl [Glucotrol Xl -] 2.5 mg PO DAILY 10/28/16 Hydralazine HCl 50 mg PO BID 10/28/16 Nifedipine ER [Procardia XL -] 30 mg PO DAILY 11/25/16 Acetaminophen [Tylenol .Regular Strength -] 650 mg PO Q6H PRN #0 tablet Apixaban [Eliquis] 5 mg PO BID #60 tablet 12/02/16 Aspirin [Ecotrin] 81 mg PO DAILY #30 tablet. 12/02/16 Metoprolol Succinate [Toprol XL -] 25 mg PO BID #120 tab 12/02/16 Review of Systems - Review of Systems Constitutional: denies: Chills, Fever Cardiovascular: reports: Chest Pain. denies: Palpitations, Shortness of Breath Respiratory: denies: SOB Physical Examination Vital Signs: Vital Signs Temperature 98.2 F 01/26/17 08:05 Pulse Rate 64 01/26/17 08:05 Respiratory Rate 14 01/26/17 08:05 Blood Pressure 108/48 01/26/17 08:05 O2 Sat by Pulse Oximetry (%) 97 01/26/17 04:07 Constitutional: Yes: No Distress, Calm Cardiovascular: Yes: Regular Rate and Rhythm Respiratory: Yes: CTA Bilaterally, Other (no chest wall tenderness) Gastrointestinal: Yes: Normal Bowel Sounds, Soft. No: Distention, Tenderness Edema: No Imaging - Results Chest X-ray: Image Reviewed (clear) EKG: Image Reviewed (NSR) Problem List - Problems (1) Chest pain Code(s): R07.9 - CHEST PAIN, UNSPECIFIED Qualifiers: Chest pain type: unspecified Qualified Code(s): R07.9 - Chest pain, unspecified; R07.9 - Chest pain, unspecified (2) CKD (chronic kidney disease) Code(s): N18.9 - CHRONIC KIDNEY DISEASE, UNSPECIFIED (3) Pulmonary embolism Code(s): I26.99 - OTHER PULMONARY EMBOLISM WITHOUT ACUTE COR PULMONALE Assessment/Plan PLAN check cardiac markers continue with [employer] incentive spirometer cardiology eval monitor BP -- adjust meds accordingly-- will give Losartan and Procardia in noon rest of meds as is
[2017-01-26] MEDS ORDERED: NIFEdipine E.R. 30 MG TABLET (FP) PO SCH (10:00)
[2017-01-26] MEDS ORDERED: METOPROLOL SUCCINATE 25 MG TAB.SR.24H (FP) PO SCH (10:00)
[2017-01-26] MEDS ORDERED: LOSARTAN POTASSIUM 50 MG TABLET (FP) PO SCH (10:00)
[2017-01-26] MEDS: hydrALAZINE HCL 50 MG TABLET (FP) PO SCH ×2 (10:25→22:20)
[2017-01-26] MEDS: glipiZIDE-XL 2.5 MG TAB.ER.24 PO SCH (10:25)
--- NOTE | 2017-01-26 11:14 | CON.CARD ---
Cardiology Consult (text) - Consultation Consultation Note: CC: CP 86 f hx htn, hl, recent bilateral PE's in november (on eliquis), cva with residual rt sided weakness, (bline cr 1.3), COPD, obesity, niddm p/w cp. In 11/2016 admit for acute bl PEs, now on eliquis. Since then has intermittent brief (lasting a minute), sharp chest discomfort on her left side. Non-exertional. No associated sx's. On the day of presentation she had more frequent episodes of the cp and became concerned. Since PE also with + fatigue and limiting dyspnea after walking up a flight of stairs (may be slightly improving). Is concerned the eliquis may be causing her dyspnea. denies palps, dizzy, loc, pnd, orthopnea, le edema. bleeding. + recent gout flare. no f/c/s, n/v/d, h/a, cough, congestion, rashes, visual disturbances. pmhx/pshx: per hpi social hx: never smoker fam hx: no family hx of heart disease ros: per hpi Ambulatory Orders Cholecalciferol (Vitamin D3) [Vitamin D3] 1,000 unit PO DAILY 03/09/14 Losartan Potassium 100 mg PO DAILY 03/09/14 --. office notes document 40 mg daily. Glipizide Xl [Glucotrol Xl -] 2.5 mg PO DAILY 10/28/16 Hydralazine HCl 50 mg PO BID 10/28/16 Nifedipine ER [Procardia XL -] 30 mg PO DAILY 11/25/16 Acetaminophen [Tylenol .Regular Strength -] 650 mg PO Q6H PRN #0 tablet Apixaban [Eliquis] 5 mg PO BID #60 tablet 12/02/16 Aspirin [Ecotrin] 81 mg PO DAILY #30 tablet. 12/02/16 Metoprolol Succinate [Toprol XL -] 25 mg PO BID #120 tab 12/02/16 atorvastatin 10 mg Current Medications Acetaminophen (Tylenol -) 650 mg PO Q6H PRN PRN Reason: FEVER OR PAIN Apixaban (Eliquis -) 5 mg PO BID [facility] Last Admin: 01/26/17 09:43 Dose: 5 mg Aspirin (Ecotrin -) 81 mg PO DAILY [facility] Last Admin: 01/26/17 09:43 Dose: 81 mg Glipizide (Glucotrol Xl -) 2.5 mg PO AM [facility] Last Admin: 01/26/17 10:25 Dose: 2.5 mg Hydralazine HCl (Apresoline -) 50 mg PO BID [facility] Last Admin: 01/26/17 10:25 Dose: 50 mg Insulin Aspart (Novolog Vial Sliding Scale -) 1 vial SQ TIDAC [facility] PRN Reason: Protocol Last Admin: 01/26/17 17:09 Dose: Not Given Losartan Potassium (Cozaar -) 50 mg PO DAILY [facility] Last Admin: 01/26/17 12:41 Dose: 50 mg Metoprolol Succinate (Toprol Xl -) 25 mg PO BID [facility] Last Admin: 01/26/17 10:25 Dose: 25 mg Nifedipine (Procardia Xl -) 30 mg PO DAILY [facility] Last Admin: 01/26/17 12:41 Dose: 30 mg Vital Signs - 24 hr 01/26/17 01/26/17 01/26/17 02:56 03:53 04:07 Temperature 97.7 F 97.7 F Pulse Rate 60 Pulse Rate [ 64 Left Apical] Respiratory 19 19 19 Rate Blood Pressure 172/50 Blood Pressure 152/71 [Right Arm] O2 Sat by Pulse 97 97 97 Oximetry (%) 01/26/17 01/26/17 01/26/17 06:39 08:05 10:30 Temperature 98.2 F Pulse Rate 58 L 64 62 Pulse Rate [ Left Apical] Respiratory 14 14 Rate Blood Pressure 131/51 108/48 116/50 Blood Pressure [Right Arm] O2 Sat by Pulse Oximetry (%) Intake & Output 01/24/17 01/25/17 01/26/17 01/27/17 07:59 07:59 07:59 07:59 Intake Total 100 100 Balance 100 100 Weight 188 lb nad, calm jvd flat, neck supple ctab, nl effort rrr nl s1, s2 2/6 murmur at sternal border. pmi nd. + bs soft nt nd ext without e/c/c + dp/pt aaox3 no jaundice, diaphoresis. CBC, BMP 01/25/17 20:15 01/25/17 20:15 Laboratory Tests 01/25/17 01/25/17 01/26/17 20:15 20:15 08:50 Total Bilirubin 0.3 D AST 24 ALT 27 D Alkaline Phosphatase 71 Troponin I < 0.02 < 0.02 Albumin 3.4 01/26/17 13:41 Total Bilirubin AST ALT Alkaline Phosphatase Troponin I < 0.02 Albumin EKG: nsr bline av delay, 63 bpm. prior t wave abnormalities have normalized. no acute ischemic changes. tele: SR/SB HR 50's-60's cxr: elevated rt hemidiaphragm. no acute pathology. (by my review ? increased interstitial markings but still improved from priors) echo 11/2016: nl lv/rv, mild lae, mild mr, mod tr, rvsp 30-40 CTA 11/2016: multiple filling defects, PE noted in both rt and left upper and lower pulmonary arteries. RLL consolidation/atelectasis with associated effusion. MIBI 10/05: no ischemia or scar, hyperdynamic EF a/p: 86 f hx htn, hl, recent bilateral PE's in november (on eliquis), cva with residual rt sided weakness, (bline cr 1.3), COPD, obesity, niddm p/w cp. CP/briseno: - similar to recent chronic chest discomfort, briseno stable, possibly improving. CE's neg x 3. Ekg without acute ischemic changes. Recent mibi without ischemia. no concern for acs at this time. - consider repeat echo to assess RV/risk for cteph in setting of recent PE and ongoing sx's. s/p bilateral pe's november. -cont AC with eliquis. -echo as above. diast chf: - repeat echo as above. - no overt signs of volume overload. CXR looks slightly improved from priors. -would check standing weight to compare to recent office weight 188 lbs. HTN: -bradycardic here, may be contributing to fatigue. Will reduce dose of metoprolol to daily dosing. - con't other home meds, hydralazine, nifedipine, losartan CKD: - at basline ? prior h/o CVA - had been on ASA. Now on AC for PE. 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 hgb stable no bleeding. If no significant abnormalities on repeat echo and clinical status remains stable, can d/c from cardiovascular perspective tomorrow. .
[2017-01-26 11:28] LABS: URINE LEUK ESTERASE Negative (NEGATIVE)
[2017-01-26] MEDS: LOSARTAN POTASSIUM 50 MG TABLET (FP) PO SCH (12:41)
[2017-01-26] MEDS: NIFEdipine E.R. 30 MG TABLET (FP) PO SCH (12:41)
[2017-01-26] MEDS: INSULIN SLIDING SCALE (NOVOLOG) 1 VIAL SQ SCH ×2 (12:42→17:09)
[2017-01-26 14:16] LABS: CPK 195 IU/L (26-192); TROPONIN I < 0.02 ng/ml (0.00-0.05)
--- NOTE | 2017-01-26 16:15 | EKG ---
Test Reason : Blood Pressure : / mmHG Vent. Rate : 063 BPM Atrial Rate : 063 BPM P-R Int : 204 ms QRS Dur : 102 ms QT Int : 408 ms P-R-T Axes : 051 013 032 degrees QTc Int : 417 ms NORMAL SINUS RHYTHM BASELINE ARTIFACT WHEN COMPARED WITH ECG OF 25-NOV-2016 06:44, NONSPECIFIC T WAVE ABNORMALITY HAS REPLACED INVERTED T WAVES IN INFERIOR LEADS T WAVE INVERSION NO LONGER EVIDENT IN ANTERIOR LEADS CORRELATE CLINICALLY AND REPEAT INDICATED Confirmed by SHANTE ABURTO MD ([id number]) on 01/26/2017 4:15:08 PM Referred By: Confirmed By:SHANTE ABURTO MD
[2017-01-27] MEDS ORDERED: PT OWN MED DRAWER 7, Y5N ONE (06:13)
[2017-01-27] MEDS: INSULIN SLIDING SCALE (NOVOLOG) 1 VIAL SQ SCH ×3 (06:20→16:21)
[2017-01-27] MEDS: glipiZIDE-XL 2.5 MG TAB.ER.24 PO SCH (07:00)
[2017-01-27] MEDS: LOSARTAN POTASSIUM 50 MG TABLET (FP) PO SCH (09:19)
[2017-01-27] MEDS: hydrALAZINE HCL 50 MG TABLET (FP) PO SCH (09:19)
[2017-01-27] MEDS: APIXABAN 5 MG TABLET PO SCH (09:20)
[2017-01-27] MEDS: ASPIRIN COATED 81 MG TABLET.EC PO SCH (09:20)
[2017-01-27] MEDS: NIFEdipine E.R. 30 MG TABLET (FP) PO SCH (09:20)
[2017-01-27] MEDS ORDERED: METOPROLOL SUCCINATE 25 MG TAB.SR.24H (FP) PO SCH ×2 (10:00→15:19)
--- NOTE | 2017-01-27 15:43 | DS ---
Physical Examination Vital Signs: Vital Signs Temperature 97.5 F L 01/27/17 14:03 Pulse Rate 70 01/27/17 14:03 Respiratory Rate 18 01/27/17 14:03 Blood Pressure 157/71 01/27/17 14:03 O2 Sat by Pulse Oximetry (%) 96 01/27/17 04:00 Constitutional: Yes: No Distress, Calm Cardiovascular: Yes: Regular Rate and Rhythm Respiratory: Yes: CTA Bilaterally Gastrointestinal: Yes: Normal Bowel Sounds, Soft, Abdomen, Obese. No: Distention, Tenderness Edema: No Discharge Summary Reason For Visit: CHEST PAIN Current Active Problems Chest pain (Acute) Hospital Course: Admitted for chest pain ACS ruled out found to have HTN urgency seen by Cardiology Echo repeated shows improved LV function, RV strain, improved MR meds adjusted decrease Metoprolol 12.5mg daily x 3 days and dc advised to follow up with DR Huber as outpt Follow up in office in 2 weeks stable for dc home Condition: Good - Instructions Referrals: Obed Huber MD [Staff Physician] - Neda Robertson MD [Primary Care Provider] - Disposition: HOME - Home Medications Comprehensive Discharge Medication List: Ambulatory Orders Cholecalciferol (Vitamin D3) [Vitamin D3] 1,000 unit PO DAILY 03/09/14 Glipizide Xl [Glucotrol Xl -] 2.5 mg PO DAILY 10/28/16 Hydralazine HCl 50 mg PO BID 10/28/16 Nifedipine ER [Procardia XL -] 30 mg PO DAILY 11/25/16 Acetaminophen [Tylenol .Regular Strength -] 650 mg PO Q6H PRN #0 tablet Apixaban [Eliquis] 5 mg PO BID #60 tablet 12/02/16 Aspirin [Ecotrin] 81 mg PO DAILY #30 tablet. 12/02/16 Losartan Potassium [Cozaar -] 50 mg PO BID tablet 01/27/17 Metoprolol Succinate [Toprol XL -] 12.5 mg PO DAILY #3 tab 01/27/17
--- NOTE | 2017-01-27 17:43 | PN ---
Progress Note (short form) - Note Progress Note: CC: CP S: [place] dizzy/fatigued this morning. no cp, palps, sob. Only received 50 mg of losartan yesterday. Typically on 100 mg. Current Medications Acetaminophen (Tylenol -) 650 mg PO Q6H PRN PRN Reason: FEVER OR PAIN Last Admin: 01/27/17 08:20 Dose: 650 mg Apixaban (Eliquis -) 5 mg PO BID [facility] Last Admin: 01/27/17 09:20 Dose: 5 mg Aspirin (Ecotrin -) 81 mg PO DAILY [facility] Last Admin: 01/27/17 09:20 Dose: 81 mg Glipizide (Glucotrol Xl -) 2.5 mg PO AM [facility] Last Admin: 01/27/17 07:00 Dose: 2.5 mg Hydralazine HCl (Apresoline -) 50 mg PO BID [facility] Last Admin: 01/27/17 09:19 Dose: 50 mg Insulin Aspart (Novolog Vial Sliding Scale -) 1 vial SQ TIDAC [facility] PRN Reason: Protocol Last Admin: 01/27/17 16:21 Dose: Not Given Losartan Potassium (Cozaar -) 50 mg PO BID [facility] Metoprolol Succinate (Toprol Xl -) 12.5 mg PO DAILY [facility] Nifedipine (Procardia Xl -) 30 mg PO DAILY [facility] Last Admin: 01/27/17 09:20 Dose: 30 mg Vital Signs - 24 hr 01/26/17 01/26/17 01/26/17 18:00 20:00 20:05 Temperature 98.2 F 98.5 F Pulse Rate 56 L 64 Respiratory 18 18 Rate Blood Pressure 139/58 135/64 O2 Sat by Pulse 97 Oximetry (%) 01/27/17 01/27/17 01/27/17 02:00 04:00 06:00 Temperature 98.5 F 98.4 F Pulse Rate 62 65 Respiratory 18 18 Rate Blood Pressure 121/51 142/63 O2 Sat by Pulse 96 Oximetry (%) 01/27/17 01/27/17 01/27/17 07:43 10:41 14:03 Temperature 98.2 F 97.5 F L Pulse Rate 54 L 58 L 70 Respiratory 18 18 Rate Blood Pressure 165/80 151/74 157/71 O2 Sat by Pulse Oximetry (%) Intake & Output 01/25/17 01/26/17 01/27/1710/17 07:59 07:59 07:59 07:59 Intake Total 100 100 600 Balance 100 100 600 Weight 188 lb 185 lb nad, calm jvd flat, neck supple ctab, nl effort rrr nl s1, s2 2/6 murmur at sternal border. pmi nd. + bs soft nt nd ext without e/c/c + dp/pt aaox3 no jaundice, diaphoresis. CBC, BMP 01/25/17 20:15 01/25/17 20:15 EKG: nsr bline av delay, 63 bpm. prior t wave abnormalities have normalized. no acute ischemic changes. tele: SR/SB HR 50's-60's cxr: elevated rt hemidiaphragm. no acute pathology. (by my review ? increased interstitial markings but still improved from priors) echo: nl lv/rv. impaired relaxation. rvsp 34. echo 11/2016: nl lv/rv, mild lae, mild mr, mod tr, rvsp 30-40 CTA 11/2016: multiple filling defects, PE noted in both rt and left upper and lower pulmonary arteries. RLL consolidation/atelectasis with associated effusion. MIBI 10/05: no ischemia or scar, hyperdynamic EF a/p: 85 f hx htn, hl, recent bilateral PE's in november (on eliquis), cva with residual rt sided weakness, (bline cr 1.3), COPD, obesity, niddm p/w cp. CP/briseno: - similar to recent chronic chest discomfort, briseno stable, overall improving since last discharge. CE's neg x 3. Ekg without acute ischemic changes. Recent mibi without ischemia. no concern for acs at this time. - Repeat echo with nl RV function. s/p bilateral pe's november. -cont AC with eliquis. -echo stable as above. diast chf: - no overt signs of volume overload. CXR looks slightly improved from priors. -standing weight 185 lbs which is less than recent office weight 188 lbs. HTN: -bradycardic here, may be contributing to fatigue. Still bradycardic today 01/27 on reduced (daily) metoprolol. Would recommend d/c on 12.5 mg daily for 3 days and then stopping. Patient to evaluate if this intervention makes a difference in fatigue. - con't other home meds, hydralazine, nifedipine, losartan (can try bid dosing of losartan - pt endorsing that her morning medications are too strong) CKD: - at baseline ? prior h/o CVA - had been on ASA. Now on AC for PE. outpatient costume shop coordinator has continued both. hgb stable no bleeding. stable for d/c from CV perspective. Can f/u with outpatient costume shop coordinator regarding changes in anti-hypertensive regimen. .
[2017-01-27 17:50] VITALS: BP 152/69; PULSE 58; TEMP 97.7
[2017-01-27] MEDS ORDERED: LOSARTAN POTASSIUM 50 MG TABLET (FP) PO SCH (22:00)
== END 2017-01-27 18:44 | disposition home or self-care (01) ==
LOC: JER 19:18 → JERBED 01-26 02:02 → UNDOADMOB 01-26 02:08 → J4W 01-26 03:51
PROVIDERS: ADMIT Internal Medicine; ATTEND Internal Medicine
PROC: 3E0337Z Introduction of Electrolytic and Water Balance Substance into Peripheral Vein, Percutaneous Approach (ICD-10-PCS; principal; 2017-01-26)
DX: R07.9 Chest pain, unspecified (principal); I25.2 Old myocardial infarction; I69.351 Hemiplegia and hemiparesis following cerebral infarction affecting right dominant side; I26.99 Other pulmonary embolism without acute cor pulmonale; I25.10 Atherosclerotic heart disease of native coronary artery without angina pectoris; I12.9 Hypertensive chronic kidney disease with stage 1 through stage 4 chronic kidney disease, or unspecified chronic kidney disease; E11.22 Type 2 diabetes mellitus with diabetic chronic kidney disease; N18.9 Chronic kidney disease, unspecified; Z79.84 Long term (current) use of oral hypoglycemic drugs; J44.9 Chronic obstructive pulmonary disease, unspecified; N28.9 Disorder of kidney and ureter, unspecified; E66.9 Obesity, unspecified; Z68.28 Body mass index [BMI] 28.0-28.9, adult; M10.9 Gout, unspecified; Z88.2 Allergy status to sulfonamides; Z91.010 Allergy to peanuts; Z79.82 Long term (current) use of aspirin; Z79.01 Long term (current) use of anticoagulants
CPT/HCPCS: 36415; 71010-TC; 80053; 81003; 82553; 84484; 85025; 93005; 93010; 93306-TC; 99285-25; G0378

== ENCOUNTER 2017-08-24 20:20 | Observation (INO) | payer OTHER ==
[2017-08-24 20:42] VITALS: BMI 27.3
--- NOTE | 2017-08-24 22:17 | PDOC ---
History of Present Illness - General History Source: Patient Exam Limitations: No Limitations - History of Present Illness Initial Comments: 08/24/17 22:28 The patient is a 87 year old female with a significant past medical history of PR, PE, GOUT, DM, HTN, CVA, HLD, and CAD who presents to the ED with complaints of chest pain for 4 days. The patient states she developed left sided chest pain that radiates to her left sided shoulder blade, left rib, and upper left back. Patient states her chest pain was dull from through Friday but notes her chest pain progressively worsened earlier today. She states her present symptoms are similar to her when he had a blood clot in her lung and a small heart attack in November 2016. She reports taking 650 mg of tylenol earlier today with no relief of present symptoms. Patient has difficulty sleeping at baseline. Denies focal numbness, weakness or tingling. Denies shortness of breath or cough. Denies palpitations. Denies changes in urinary output. Denies any other symptoms. PCP: Dr. Neda Hagan Coal Trimmer: Dr. Obed Huber Lead Dental Assistant: Dr. Gabo Astorga <Carleen Hess - Last Filed: 08/24/17 23:54> <Suzette Calix - Last Filed: 08/25/17 00:27> - General Chief Complaint: Chest Pain Stated Complaint: CHEST PAIN Time Seen by Provider: 08/24/17 22:05 Past History <Carleen Hess - Last Filed: 08/24/17 23:54> - Past Medical History Cardiac Disorders: Yes CVA: Yes (2000, mild right sided weakness) COPD: No Diabetes: Yes HTN: Yes Hypercholesterolemia: Yes Other medical history: PE - Surgical History Orthopedic Surgery: Yes (left knee surgery) - Suicide/Smoking/Psychosocial Hx Smoking Status: No Smoking History: Never smoked Have you smoked in the past 12 months: No Number of Cigarettes Smoked Daily: 0 Information on smoking cessation initiated: No Hx Alcohol Use: No Drug/Substance Use Hx: No Substance Use Type: None Hx Substance Use Treatment: No <Suzette Calix - Last Filed: 08/25/17 00:27> - Past Medical History Allergies/Adverse Reactions: Allergies Allergy/AdvReac Type Severity Reaction Status Date / Time Sulfa (Sulfonamide Allergy Intermediate Hives Verified 08/24/17 20:39 Antibiotics) peanut Allergy Unknown Verified 08/24/17 20:39 Home Medications: Ambulatory Orders Apixaban [Eliquis] 5 mg PO DAILY 08/24/17 Apixaban [Eliquis] 5 mg PO DAILY 08/24/17 Aspirin [ASA -] 81 mg PO DAILY 08/24/17 Cholecalciferol (Vitamin D3) [Vitamin D3] 1,000 unit PO DAILY 08/24/17 Glipizide [Glipizide ER] 2.5 mg PO DAILY 08/24/17 Losartan Potassium [Cozaar] 100 mg PO DAILY 08/24/17 Nifedipine [Procardia Xl] 30 mg PO DAILY 08/24/17 hydrALAZINE HCL [Apresoline -] 50 mg PO BID 08/24/17 Review of Systems - Review of Systems Able to Perform ROS?: Yes Comments:: 08/24/17 22:37 CONSTITUTIONAL: Absent: fever, chills, diaphoresis, generalized weakness, malaise, loss of appetite HEENT: Absent: rhinorrhea, nasal congestion, throat pain, throat swelling, difficulty swallowing, mouth swelling, ear pain, eye pain, visual Changes CARDIOVASCULAR: + chest pain with radiation to shoulder blade, rib, and back Absent: syncope, palpitations, irregular heart rate, lightheadedness, peripheral edema RESPIRATORY: Absent: cough, shortness of breath, dyspnea with exertion, orthopnea, wheezing, stridor, hemoptysis GASTROINTESTINAL: Absent: abdominal pain, abdominal distension, nausea, vomiting, diarrhea, constipation, melena, hematochezia GENITOURINARY: Absent: dysuria, frequency, urgency, hesitancy, hematuria, flank pain, genital pain MUSCULOSKELETAL: Absent: joint swelling SKIN: Absent: rash, itching, pallor HEMATOLOGIC/IMMUNOLOGIC: Absent: easy bleeding, easy bruising, lymphadenopathy, frequent infections ENDOCRINE: Absent: unexplained weight gain, unexplained weight loss, heat intolerance, cold intolerance NEUROLOGIC: Absent: headache, focal weakness or paresthesias, dizziness, unsteady gait, seizure, mental status changes, bladder or bowel incontinence PSYCHIATRIC: Absent: anxiety, depression, suicidal or homicidal ideation, hallucinations. All Other Systems: Reviewed and Negative <Carleen Hess - Last Filed: 08/24/17 23:54> *Physical Exam - Vital Signs Last Vital Signs Temp Pulse Resp BP Pulse Ox 97.7 F 76 18 163/95 99 08/24/17 20:39 08/24/17 20:39 08/24/17 20:39 08/24/17 20:39 08/24/17 20:39 - Physical Exam Comments: 08/24/17 22:37 GENERAL: Well developed, well nourished. Awake and alert. No acute distress. HEENT: Normocephalic, atraumatic. PERRLA, EOMI. No conjunctival pallor. Sclera are non- icteric. Moist mucous membranes. Oropharynx is clear. NECK: Supple. Full ROM. No JVD. Carotid pulses 2+ and symmetric, without bruits. No thyromegaly. No lymphadenopathy. CARDIOVASCULAR: Regular rate and rhythm. No murmurs, rubs, or gallops. Distal pulses are 2+ and symmetric. PULMONARY: No evidence of respiratory distress. Lungs clear to auscultation bilaterally. No wheezing, rales or rhonchi. ABDOMINAL: Soft. Non-tender. Non-distended. No rebound or guarding. No organomegaly. Normoactive bowel sounds. MUSCULOSKELETAL Normal range of motion at all joints. No bony deformities or tenderness. No CVA tenderness. EXTREMITIES: No cyanosis. No clubbing. No edema. No calf tenderness. SKIN: Warm and dry. Normal capillary refill. No rashes. No jaundice. NEUROLOGICAL: Alert, awake, appropriate. Cranial nerves 2-12 intact. No deficits to light touch and temperature in face, upper extremities and lower extremities. No motor deficits in the in face, upper extremities and lower extremities. Normoreflexic in the upper and lower extremities. Normal speech. Toes are down- going bilaterally. Gait is normal without ataxia. PSYCHIATRIC: Cooperative. Good eye contact. Appropriate mood and affect. <Carleen Hess - Last Filed: 08/24/17 23:54> - Vital Signs Last Vital Signs Temp Pulse Resp BP Pulse Ox 97.7 F 76 18 163/95 99 08/24/17 20:39 08/24/17 20:39 08/24/17 20:39 08/24/17 20:39 08/24/17 20:39 <Suzette Calix - Last Filed: 08/25/17 00:27> Heart Score/ECG Review #1 08/24/17 23:54 Normal Sinus Rhythm at 68 bpm MT interval 202 ms QRS duration 116 ms Reported by: Dr. Calix <Carleen Hess - Last Filed: 08/24/17 23:54> ED Treatment Course - LABORATORY CBC & Chemistry Diagram: 08/24/17 22:45 08/24/17 22:45 <Carleen Hess - Last Filed: 08/24/17 23:54> - LABORATORY CBC & Chemistry Diagram: 08/24/17 22:45 08/24/17 22:45 <Suzette Calix - Last Filed: 08/25/17 00:27> Medical Decision Making - Medical Decision Making 08/24/17 23:32 Pt's D-dimer is elevated to 4000+. We cannot get a CTA chest, as her BUN/CR are elevated. Pt is on eliquis so I will not start her on heparin. Pt of Dr. Bev Robertson. 08/25/17 00:[address] Collins, who is patient's cardio, he states that pt will require hematology consult in the AM. She receieved her eliquis this PM, as a result she will not be started on heparin tonight for potential failure of eliquis. Pt will be admitted to med surg for r/o PE, pleuritic chest pain. 08/25/17 00:26 Hospitalist team is aware of the patient. <Suzette Calix - Last Filed: 08/25/17 00:27> *DC/Admit/Observation/Transfer - Attestations Scribe Attestion: 08/24/17 22:38 Documentation prepared by Carleen Hess, acting as medical policy specialist for Suzette Calix MD <Carleen Hess - Last Filed: 08/24/17 23:54> - Discharge Dispostion Admit: Yes <Suzette Calix - Last Filed: 08/25/17 00:27> Diagnosis at time of Disposition: Chest pain, Pulmonary embolism, Pleuritic chest pain - Discharge Dispostion Condition at time of disposition: Guarded - Referrals Referrals: Neda Robertson MD [Primary Care Provider] - - Patient Instructions - Post Discharge Activity
[2017-08-24 22:55] LABS: EOS % 8.8 % (0-4.5); HEMOGLOBIN 12.1 GM/dL (10.7-15.3); MCH 29.9 pg (25.7-33.7); MCHC 34.6 g/dl (32.0-36.0); MEAN CELL VOLUME 86.5 fl (80-96); MEAN PLT VOLUME 8.2 fl (7.5-11.1); MONO % 10.6 % (3.8-10.2); NEUT % 39.6 % (42.8-82.8); PLATELET COUNT 259 K/MM3 (134-434); RBC 4.05 M/mm3 (3.60-5.2); RDW 14.5 % (11.6-15.6); WHITE BLOOD COUNT 6.1 K/mm3 (4.0-10.0)
[2017-08-24 23:11] LABS: INR 1.12 (0.82-1.09); PROTHROMBIN TIME (PATIENT) 12.6 SEC (9.7-13.0)
[2017-08-24 23:13] LABS: ACTIVATED PTT 34.6 SECONDS (26.9-34.4)
[2017-08-24 23:23] LABS: ALBUMIN 3.7 g/dl (3.4-5.0); ANION GAP 5 (8-16); BILIRUBIN,TOTAL 0.2 mg/dL (0.2-1.0); BLOOD UREA NITROGEN 28 mg/dL (7-18); CALCIUM 8.8 mg/dL (8.5-10.1); CHLORIDE 110 mmol/L (98-107); CO2 26 mmol/L (21-32); CREATININE 1.6 mg/dL (0.55-1.02); GLUCOSE,RANDOM 104 mg/dL (74-106); SGPT/ALT 20 U/L (12-78); SODIUM 141 mmol/L (136-145); TOT PROT 7.4 g/dl (6.4-8.2)
[2017-08-24 23:26] LABS: ALK PHOS 69 U/L (45-117)
[2017-08-24 23:27] LABS: POTASSIUM 4.1 mmol/L (3.5-5.1); SGOT/AST 29 U/L (15-37)
--- NOTE | 2017-08-25 01:37 | HP ---
CHIEF COMPLAINT: chest pain PCP: Marcelo Cardio: Cecile Pulm: Rizwan HISTORY OF PRESENT ILLNESS: This is an 87 year old female with a past medical history significant for PE, CVA, DM, HTN who presented to the ED with left sided chest pain that is similar , but not as severe, to when she had her PE last year. She reports regularly taking her eliquis 5mg BID including this evening. She states that the pain radiates to her L shoulder blade, L ribs and L upper back. She denies SOB, palpitations. She reports worsening of CP with deep breathing and movement. ER course was notable for: (1) D dimer 4044 (2) trop <0.02 (3) BUN 28/Cr 1.6 Recent Travel: pt denies PAST MEDICAL HISTORY: PE 11/2016, CVA 1999 with mild R residual, DM, HTN, HLD, gout PAST SURGICAL HISTORY: L knee arthoscopy B/L cataracts Social History: Smoking: pt denies Alcohol: pt denies Drugs: pt denies Family History: mother age 38, hodgkins lymphoma father age 79, [place] brother age 67, lymphoma to brain sister age 80, colon CA brother alive s/p prostate CA and "heart problem" brother alive s/p prostate CA sister alive s/p lung CA Allergies Sulfa (Sulfonamide Antibiotics) Allergy (Intermediate, Verified 08/24/17 20:39) Hives peanut Allergy (Unknown, Verified 08/24/17 20:39) HOME MEDICATIONS: 3 Medication Instructions Recorded Apixaban [Eliquis] 5 mg PO DAILY 08/24/17 Apixaban [Eliquis] 5 mg PO DAILY 08/24/17 Aspirin [ASA -] 81 mg PO DAILY 08/24/17 Cholecalciferol (Vitamin D3) 1,000 unit PO DAILY 08/24/17 [Vitamin D3] Glipizide [Glipizide ER] 2.5 mg PO DAILY 08/24/17 Losartan Potassium [Cozaar] 100 mg PO DAILY 08/24/17 Nifedipine [Procardia Xl] 30 mg PO DAILY 08/24/17 hydrALAZINE HCL [Apresoline -] 50 mg PO BID 08/24/17 REVIEW OF SYSTEMS CONSTITUTIONAL: Absent: fever, chills, diaphoresis, generalized weakness, malaise, loss of appetite, weight change HEENT: Absent: rhinorrhea, nasal congestion, throat pain, throat swelling, difficulty swallowing, mouth swelling, ear pain, eye pain, visual changes CARDIOVASCULAR: Present: chest pain Absent: syncope, palpitations, irregular heart rate, lightheadedness, peripheral edema RESPIRATORY: Absent: cough, shortness of breath, dyspnea with exertion, orthopnea, wheezing, stridor, hemoptysis GASTROINTESTINAL: Absent: abdominal pain, abdominal distension, nausea, vomiting, diarrhea, constipation, melena, hematochezia GENITOURINARY: Absent: dysuria, frequency, urgency, hesitancy, hematuria, flank pain, genital pain MUSCULOSKELETAL: Absent: myalgia, arthralgia, joint swelling, back pain, neck pain SKIN: Absent: rash, itching, pallor HEMATOLOGIC/IMMUNOLOGIC: Absent: easy bleeding, easy bruising, lymphadenopathy, frequent infections ENDOCRINE: Absent: unexplained weight gain, unexplained weight loss, heat intolerance, cold intolerance NEUROLOGIC: Absent: headache, focal weakness or paresthesias, dizziness, unsteady gait, seizure, mental status changes, bladder or bowel incontinence PSYCHIATRIC: Absent: anxiety, depression, suicidal or homicidal ideation, hallucinations. PHYSICAL EXAMINATION Vital Signs - 24 hr 3 08/24/17 20:39 Temperature 97.7 F Pulse Rate 76 Respiratory 18 Rate Blood Pressure 163/95 O2 Sat by Pulse 99 Oximetry (%) GENERAL: Awake, alert, and fully oriented, in no acute distress. HEAD: Normal with no signs of trauma. EYES: Pupils equal, round and reactive to light, extraocular movements intact, sclera anicteric, conjunctiva clear. No lid lag. EARS, NOSE, THROAT: Ears normal, nares patent, oropharynx clear without exudates. Moist mucous membranes. NECK: Normal range of motion, supple without lymphadenopathy, JVD, or masses. LUNGS: Breath sounds equal, clear to auscultation bilaterally. No wheezes, and no crackles. No accessory muscle use. HEART: Regular rate and rhythm, normal S1 and S2 without murmur, rub or gallop. ABDOMEN: Soft, nontender, not distended, normoactive bowel sounds, no guarding, no rebound, no masses. No hepatomegaly or splenomegaly. MUSCULOSKELETAL: Normal range of motion at all joints. No bony deformities or tenderness. No CVA tenderness. UPPER EXTREMITIES: 2+ pulses, warm, well-perfused. No cyanosis. No clubbing. No peripheral edema. LOWER EXTREMITIES: 2+ pulses, warm, well-perfused. No calf tenderness. No peripheral edema. NEUROLOGICAL: Cranial nerves II-XII intact. Normal speech. Normal gait. PSYCHIATRIC: Cooperative. Good eye contact. Appropriate mood and affect. SKIN: Warm, dry, normal turgor, no rashes or lesions noted, normal capillary refill. Laboratory Results - last 24 hr 3 08/24/17 08/24/17 08/24/17 22:45 22:45 22:45 WBC 6.1 RBC 4.05 Hgb 12.1 Hct 35.0 MCV 86.5 MCH 29.9 MCHC 34.6 RDW 14.5 Plt Count 259 MPV 8.2 Neutrophils % 39.6 L D Lymphocytes % 40.0 Monocytes % 10.6 H Eosinophils % 8.8 H D Basophils % 1.0 PT with INR 12.60 INR 1.12 PTT (Actin FS) 34.6 H D-Dimer 4045 H Sodium Potassium Chloride Carbon Dioxide Anion Gap BUN Creatinine Creat Clearance w eGFR Random Glucose Calcium Total Bilirubin AST ALT Alkaline Phosphatase Creatine Kinase Creatine Kinase Index CK-MB (CK-2) Troponin I Total Protein Albumin 3 08/24/17 22:45 WBC RBC Hgb Hct MCV MCH MCHC RDW Plt Count MPV Neutrophils % Lymphocytes % Monocytes % Eosinophils % Basophils % PT with INR INR PTT (Actin FS) D-Dimer Sodium 141 Potassium 4.1 Chloride 110 H Carbon Dioxide 26 Anion Gap 5 L BUN 28 H Creatinine 1.6 H Creat Clearance w eGFR 30.56 Random Glucose 104 Calcium 8.8 Total Bilirubin 0.2 D AST 29 ALT 20 Alkaline Phosphatase 69 Creatine Kinase 226 H Creatine Kinase Index 1.0 CK-MB (CK-2) 2.438 Troponin I < 0.02 Total Protein 7.4 Albumin 3.7 ECG normal sinus rhythm vent rate 68, QTC [address]/T wave changes ASSESSMENT/PLAN: 87yF with PMH PE 11/2016, CVA 1999 with mild R residual, DM, HTN, HLD, gout presented to the ED with left sided chest pain under left breast. Chest pain - r/o PE vs ACS, unlikely ACS, more likely recurrent PE/eliquis failure - Unable to obtain CTA due to Creatinine - Pulmonary and cardiology consults - trend troponin - monitor on tele - as per ED attending cardiology deferred starting heparin as pt took eliquis last evening, rec hematology consult. MICHAEL - Cr 1.6, slightly above baseline of 1.3 - will hydrate - repeat bmp in am h/o PE - eliquis on hold, would recommend start heparin in am, but will defer to hematology HTN - cont home losartan, hydralazine, procardia HLD - not on statin, f/u with PCP DM - hold home glipizide - BGM AC/HS with novolog ss DVT PPX - on eliquis FEN - NS @ 100cc/hr - bmp in am - diabetic/low sodium diet in am Dispo: pt currently requires further observation. Visit type - Emergency Visit Emergency Visit: Yes ED Registration Date: 08/24/17 Care time: The patient presented to the Emergency Department on the above date and was hospitalized for further evaluation of their emergent condition. - New Patient This patient is new to me today: Yes Date on this admission: 08/25/17 - Critical Care Critical Care patient: No Hospitalist Screening - Colonoscopy Questionnaire Colonoscopy Questionnaire: Colonoscopy Questionnaire - Patient: 50 - 75 years old and never had a screening colonoscopy: No History of colon or rectal polyps, or CA: No History of IBD, Crohn's disease or UC: No History of abdominal radiation therapy as a child: No - Relative: 1 with colon or rectal CA, or polyps at age 60 or younger: No Colon or rectal CA diagnosed at age 45 or younger: No Multiple relatives with colon or rectal CA: No - Outcome: Screening Result: Negative Screen
[2017-08-25] MEDS: SODIUM CHLORIDE 1,000 ML IV SCH (02:20)
[2017-08-25] MEDS ORDERED: glipiZIDE 5 MG TABLET (FP) ONE (06:05)
[2017-08-25] MEDS: INSULIN SLIDING SCALE (NOVOLOG) 1 VIAL SQ SCH ×4 (07:01→22:04)
[2017-08-25] MEDS: glipiZIDE-XL 2.5 MG TAB.ER.24 PO SCH (07:06)
[2017-08-25 07:32] LABS: HEMATOCRIT 32.3 % (32.4-45.2); HEMOGLOBIN 10.9 GM/dL (10.7-15.3); MCH 29.3 pg (25.7-33.7); MCHC 33.9 g/dl (32.0-36.0); MEAN CELL VOLUME 86.3 fl (80-96); RBC 3.74 M/mm3 (3.60-5.2); RDW 14.5 % (11.6-15.6); WHITE BLOOD COUNT 5.6 K/mm3 (4.0-10.0)
[2017-08-25 07:33] LABS: BASO % 0.8 % (0-2.0); LYMPH % 45.3 % (8-40); MEAN PLT VOLUME 7.5 fl (7.5-11.1); MONO % 9.4 % (3.8-10.2); NEUT % 35.5 % (42.8-82.8); PLATELET COUNT 241 K/MM3 (134-434)
[2017-08-25 07:56] LABS: ANION GAP 5 (8-16); BLOOD UREA NITROGEN 24 mg/dL (7-18); CALCIUM 8.5 mg/dL (8.5-10.1); CHLORIDE 112 mmol/L (98-107); CO2 25 mmol/L (21-32); CREATININE 1.4 mg/dL (0.55-1.02); GLUCOSE,RANDOM 115 mg/dL (74-106); MAGNESIUM 2.2 mg/dL (1.8-2.4); POTASSIUM 3.6 mmol/L (3.5-5.1); SODIUM 142 mmol/L (136-145)
[2017-08-25] MEDS ORDERED: LOSARTAN POTASSIUM 50 MG TABLET (FP) PO SCH (10:00)
--- NOTE | 2017-08-25 10:29 | CON.CARD ---
Consult Consult Specialty:: cardio - History of Present Illness Chief Complaint: cp History of Present Illness: 87 yo female here with cp. pain located under L breast--spasms, not severe. worsened with changes in position/motion of torso. also assctd pain in L scapular/shoulder at times. the pain under L breast is similar to prior PE. no radiation around or through to her back. she had marked sob at time of PE she says, and has not experienced this currently. past 2d she feels mildly breathless at times, attributed it to allergies ( recently s/p viktor tx for "allergic reaction"). 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: CVA Cardio/Vascular: Yes: HTN Pulmonary: Yes: Pulmonary Embolus (recent diagnosis of PE on Eliquis) Renal/: Yes: Renal Inusuff - Alcohol/Substance Use Hx Alcohol Use: No - Smoking History Smoking history: Never smoked Have you smoked in the past 12 months: No Aproximately how many cigarettes per day: 0 Home Medications - Allergies Allergies/Adverse Reactions: Allergies Allergy/AdvReac Type Severity Reaction Status Date / Time Sulfa (Sulfonamide Allergy Intermediate Hives Verified 08/24/17 20:39 Antibiotics) peanut Allergy Unknown Verified 08/24/17 20:39 - Home Medications Home Medications: Ambulatory Orders Apixaban [Eliquis] 5 mg PO BID 08/24/17 Aspirin [ASA -] 81 mg PO DAILY 08/24/17 Cholecalciferol (Vitamin D3) [Vitamin D3] 1,000 unit PO DAILY 08/24/17 Glipizide [Glipizide ER] 2.5 mg PO DAILY 08/24/17 Losartan Potassium [Cozaar] 100 mg PO DAILY 08/24/17 Nifedipine [Procardia Xl] 30 mg PO DAILY 08/24/17 hydrALAZINE HCL [Apresoline -] 50 mg PO BID 08/24/17 Family Disease History - Family Disease History Family History: Denies (no known cmp) Review of Systems - Review of Systems Constitutional: denies: Chills, Fever Eyes: denies: Eye Pain HENT: denies: Nasal Congestion Neck: denies: Stiffness Cardiovascular: denies: Palpitations Respiratory: denies: Orthopnea, PND Gastrointestinal: denies: Diarrhea, Rectal Bleeding Genitourinary: denies: Burning, Hematuria Musculoskeletal: denies: Muscle Pain Integumentary: denies: Rash Neurological: denies: Numbness, Seizure, Syncope Endocrine: denies: Excessive Sweating Hematology/Lymphatic: denies: Excessive Bleeding Vital Signs: Vital Signs Temperature 97.7 F 08/24/17 20:39 Pulse Rate 60 08/25/17 07:29 Respiratory Rate 18 08/25/17 07:29 Blood Pressure 158/71 08/25/17 07:29 O2 Sat by Pulse Oximetry (%) 98 08/25/17 06:25 Constitutional: Yes: Well Nourished, No Distress Eyes: No: Sclera Icterus HENT: No: Nasal Congestion Neck: No: Decreased ROM Respiratory: Yes: CTA Bilaterally. No: Accessory Muscle Use, Rales, Wheezes Gastrointestinal: Yes: Normal Bowel Sounds. No: Distention, Hepatomegaly, Palpable Mass, Tenderness Cardiovascular: Yes: Regular Rate and Rhythm JVD: No Carotid Bruit: No PMI: Non-Displaced Heart Sounds: Yes: S1, S2. No: Gallop Murmur: No: Systolic Murmur, Diastolic Murmur Musculoskeletal: Yes: Other (No kyphosis) Extremities: No: Cold, Cyanosis Edema: No Peripheral Pulses: 2+ Left Carotid, 2+ Right Carotid, 2+ Left Doralis Pedis, 2+ Right Dorsalis Pedis Integumentary: No: Jaundice Neurological: Yes: Alert, Oriented (x3) Psychiatric: No: Agitated - Other Data Labs, Other Data: CBC, BMP 08/25/17 07:15 08/25/17 07:15 INR, PTT INR 1.12 (0.82-1.09) 08/24/17 22:45 Troponin, BNP 08/24/17 08/25/17 22:45 07:15 Troponin I < 0.02 < 0.02 Troponin, BNP 08/24/17 08/25/17 22:45 07:15 Troponin I < 0.02 < 0.02 Laboratory Tests 08/24/17 08/25/17 08/25/17 22:45 07:15 07:15 WBC 5.6 Hgb 10.9 Plt Count 241 Sodium 142 Potassium 3.6 Carbon Dioxide 25 BUN 24 H Creatinine 1.4 H AST 29 ALT 20 Troponin I < 0.02 08/25/17 07:15 WBC Hgb Plt Count Sodium Potassium Carbon Dioxide BUN Creatinine AST ALT Troponin I < 0.02 Assessment/Plan echo 08/06: nl lv/rv. impaired relaxation. rvsp 34. echo 11/2016: nl lv/rv, mild lae, mild mr, mod tr, rvsp 30-40 CTA 11/2016: multiple filling defects, PE noted in both rt and left upper and lower pulmonary arteries. RLL consolidation/atelectasis with associated effusion. MIBI 10/05: no ischemia or scar, hyperdynamic EF CXR: chronic (loculated?) L effusion unchanged vs prior ECG 08/24: NSR, WNL (no change vs prior) a/p: 86 f hx htn, hl, recent bilateral PE's in november (on eliquis), cva with residual rt sided weakness, (bline cr 1.3), COPD, obesity, niddm p/w cp. atypical - ECG normal, trop neg x 2 - here 08/06 with L sided CP as well--with negative evaluation at that time - current pain is highly musculoskeletal sounding, with positional quality. no tachycardia or hypoxia. pt has no known malignancy. is on eliquis with good compliance--PE is extremely unlikely, would defer rpt workup unless clinical picture changes. s/p bilateral pe's november. -cont AC with eliquis--duration per pulm -echo stable as above. chronic diast chf: - appears clinically euvolemic, cxr chronic L effusion. - recent baseline wt range 185-188 HTN: -metoprolol d/c'd 08/06 for bradycardia -home regimen: hydralazine, nifedipine, losartan -bp controlled presently--same meds CKD: - prior creat range here 1.2-1.5 - currently renal fxn stable at baseline h/o CVA - had been on ASA. Now on AC for PE. 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 hgb stable no bleeding. no further inpatient CV w/u indicated. outpt f/u with dr oakes
[2017-08-25] MEDS: NIFEdipine E.R. 30 MG TABLET (FP) PO SCH (10:59)
[2017-08-25] MEDS: hydrALAZINE HCL 50 MG TABLET (FP) PO SCH ×2 (10:59→22:04)
[2017-08-25] MEDS: ASPIRIN 81 MG CHEWABLE TABLETS PO SCH (10:59)
[2017-08-25] MEDS: CHOLECALCIFEROL (VITAMIN D3) 1,000 UNIT TABLET (FP) PO SCH (11:00)
--- NOTE | 2017-08-25 12:37 | EKG ---
Test Reason : Blood Pressure : / mmHG Vent. Rate : 068 BPM Atrial Rate : 068 BPM P-R Int : 202 ms QRS Dur : 116 ms QT Int : 408 ms P-R-T Axes : 050 -01 027 degrees QTc Int : 433 ms NORMAL SINUS RHYTHM NORMAL ECG WHEN COMPARED WITH ECG OF 25-JAN-2017 19:46, NO SIGNIFICANT CHANGE WAS FOUND Confirmed by DEEP JACKMAN MD ([id number]) on 08/25/2017 12:37:37 PM Referred By: Confirmed By:DEEP JACKMAN MD
--- NOTE | 2017-08-25 16:03 | PN ---
Progress Note (short form) - Note Progress Note: PULMONARY CONSULTATION DICTATED 08/25/17 IMP CHEST PAIN SYNDROME ? PE,?MUSCULOSKELETAL ASHD S/P [place] H/P PE H/O CVA DM HTN CKD PLAN DUPLEX LOWER EXT V/Q SCAN ANALGESICS AC CARDIAC W/U PER CARDIOLOGY MONITOR LYTES,RENAL FUNCTION DR COLE Problem List - Problems (1) Chest pain Code(s): R07.9 - CHEST PAIN, UNSPECIFIED (2) Pleuritic chest pain Code(s): R07.81 - PLEURODYNIA (3) Pulmonary embolism Code(s): I26.99 - OTHER PULMONARY EMBOLISM WITHOUT ACUTE COR PULMONALE (4) CKD (chronic kidney disease) Code(s): N18.9 - CHRONIC KIDNEY DISEASE, UNSPECIFIED (5) Hypertension Code(s): I10 - ESSENTIAL (PRIMARY) HYPERTENSION (6) H/O: CVA (cerebrovascular accident) Code(s): Z86.73 - PRSNL HX OF TIA (TIA), AND CEREB INFRC W/O RESID DEFICITS (7) Diabetes Code(s): E11.9 - TYPE 2 DIABETES MELLITUS WITHOUT COMPLICATIONS (8) Hypertension Code(s): I10 - ESSENTIAL (PRIMARY) HYPERTENSION
--- NOTE | 2017-08-25 19:38 | CONS ---
PULMONARY CONSULTATION DATE OF CONSULTATION: 08/25/2017 REFERRING PHYSICIAN: Dr. Joiner The patient is an 87-year-old black female well known to me in previous hospitalization and office followup, with past medical history of ASHD, status post VT; pulmonary embolism in November of 2016, CTA positive bilateral pulmonary emboli, who has been on Eliquis since, compliant; gout; diabetes; hypertension; CVA; hyperlipidemia; admitted to [facility] with complaint of 4-day history of chest pain. Patient states she has developed left-sided chest pain that radiates to her left shoulder blade, left rib, and upper back. States the pain is intermittent in character and associated with movement. She also complains of some left breast discomfort. She states that the pain is similar to the pain she exhibited when she had a pulmonary embolism in November. She has been complaining of some increasing shortness of breath, predominantly with walking on level ground at a moderate pace. She denies any chronic cough or hemoptysis. Denies any fevers, weight loss, or night sweats. She is a nonsmoker. There is no history of occupational exposure to chemicals or fumes. Her current hospitalization in the emergency room, she had a D-dimer performed which was greater than 4000. Chest x-ray revealed no acute infiltrates. The patient was admitted for further workup. Patient evaluated by Dr. Miller for cardiology consultation. PAST MEDICAL HISTORY: Again includes ASHD status post VT; bilateral pulmonary emboli in November 2016, compliant with Eliquis; gout; diabetes; hypertension; hyperlipidemia; chronic kidney disease. REVIEW OF SYSTEMS: Positive chest pain. Positive mild shortness of breath. No cough. No hemoptysis. No abdominal pain, lower extremity edema. CURRENT MEDICATIONS: Include Cozaar, Procardia, Apresoline, normal saline, NovoLog, aspirin, glipizide, Glucotrol, vitamin D3. PHYSICAL EXAMINATION: General: The patient is a well-developed, well-nourished female, awake, alert, in no acute distress. Vital Signs: She is currently afebrile. Blood pressure 138/58. Respiratory rate is 18. O2 saturation is 97% on room air. HEENT: Normocephalic, atraumatic. Neck: Supple. Heart: Regular. S1, S2. Chest: Clear. Abdomen: Soft. Bowel sounds positive. Extremities: No cyanosis or edema. LABORATORY DATA: WBC is 5.6, hemoglobin 10.9, hematocrit 32.3, with a platelet count of 241,000. D-dimer is 4045. BUN is 24, creatinine is 1.4. Chest x-ray: No infiltrates. No effusions. IMPRESSION: 1. Chest pain syndrome, cannot exclude possible pulmonary emboli, being that chest pain is similar to a previous presentation in November 2016, although patient has been compliant with Eliquis. Rule out musculoskeletal etiology. 2. 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 3. Diabetes. 4. Chronic kidney disease. 5. Hyperlipidemia. 6. Status post cerebrovascular accident. PLAN: Continue anticoagulation. We will obtain duplex of lower extremities as well as ventilation/perfusion lung scan. Supplemental O2 p.r.n. Cardiology workup as per Cardiology. JORDAN COLE M.D. FILIPPO/[id number]
[2017-08-25] MEDS ORDERED: APIXABAN 5 MG TABLET PO SCH (22:00)
[2017-08-25] MEDS: ENOXAPARIN NA (PORCINE) 80 MG/0.8 ML DISP.SYRIN SQ SCH (22:04)
--- NOTE | 2017-08-25 23:08 | CONSULT ---
Consult - text type - Consultation Consultation Note: Patient seen and examined This is an 87 year old female with a past medical history significant for PE, CVA, DM, HTN who presents with left sided chest pain that is similar, but not as severe, to when she had her PE last year. She reports regularly taking her eliquis 5mg BID including this evening. She states that the pain radiates to her L shoulder blade, L ribs and L upper back. She denies SOB, palpitations. She reports worsening of CP with deep breathing and movement. PAST MEDICAL HISTORY: PE 11/2016, CVA 1999 with mild R residual, DM, HTN, HLD, gout PAST SURGICAL HISTORY: L knee arthoscopy B/L cataracts Family History: mother age 38, hodgkins lymphoma father age 79, [place] brother age 67, lymphoma to brain sister age 80, colon CA brother alive s/p prostate CA and "heart problem" brother alive s/p prostate CA sister alive s/p lung CA Allergies Sulfa (Sulfonamide Antibiotics) Allergy (Intermediate, Verified 08/24/17 20:39) Hives peanut Allergy (Unknown, Verified 08/24/17 20:39) HOME MEDICATIONS: 3 Medication Instructions Recorded Apixaban [Eliquis] 5 mg PO DAILY 08/24/17 Apixaban [Eliquis] 5 mg PO DAILY 08/24/17 Aspirin [ASA -] 81 mg PO DAILY 08/24/17 Cholecalciferol (Vitamin D3) 1,000 unit PO DAILY 08/24/17 [Vitamin D3] Glipizide [Glipizide ER] 2.5 mg PO DAILY 08/24/17 Losartan Potassium [Cozaar] 100 mg PO DAILY 08/24/17 Nifedipine [Procardia Xl] 30 mg PO DAILY 08/24/17 hydrALAZINE HCL [Apresoline -] 50 mg PO BID 08/24/17 PHYSICAL EXAMINATION AFVSS GENERAL: Awake, alert, and fully oriented, in no acute distress. HEAD: Normal with no signs of trauma. NECK: Normal range of motion, supple without lymphadenopathy, JVD, or masses. LUNGS: Breath sounds equal, clear to auscultation bilaterally. No wheezes, and no crackles. No accessory muscle use. HEART: Regular rate and rhythm, normal S1 and S2 without murmur, rub or gallop. ABDOMEN: Soft, nontender, not distended, normoactive bowel sounds, no guarding, no rebound, no masses. No hepatomegaly or splenomegaly. NEUROLOGICAL: Cranial nerves II-XII intact. Normal speech. Normal gait. Laboratory Results - last 24 hr 3 08/24/17 08/24/17 08/24/17 22:45 22:45 22:45 WBC 6.1 RBC 4.05 Hgb 12.1 Hct 35.0 MCV 86.5 MCH 29.9 MCHC 34.6 RDW 14.5 Plt Count 259 MPV 8.2 Neutrophils % 39.6 L D Lymphocytes % 40.0 Monocytes % 10.6 H Eosinophils % 8.8 H D Basophils % 1.0 PT with INR 12.60 INR 1.12 PTT (Actin FS) 34.6 H D-Dimer 4045 H Sodium Potassium Chloride Carbon Dioxide Anion Gap BUN Creatinine Creat Clearance w eGFR Random Glucose Calcium Total Bilirubin AST ALT Alkaline Phosphatase Creatine Kinase Creatine Kinase Index CK-MB (CK-2) Troponin I Total Protein Albumin 3 08/24/17 22:45 WBC RBC Hgb Hct MCV MCH MCHC RDW Plt Count MPV Neutrophils % Lymphocytes % Monocytes % Eosinophils % Basophils % PT with INR INR PTT (Actin FS) D-Dimer Sodium 141 Potassium 4.1 Chloride 110 H Carbon Dioxide 26 Anion Gap 5 L BUN 28 H Creatinine 1.6 H Creat Clearance w eGFR 30.56 Random Glucose 104 Calcium 8.8 Total Bilirubin 0.2 D AST 29 ALT 20 Alkaline Phosphatase 69 Creatine Kinase 226 H Creatine Kinase Index 1.0 CK-MB (CK-2) 2.438 Troponin I < 0.02 Total Protein 7.4 Albumin 3.7 ASSESSMENT/PLAN: 87yF with PMH PE 11/2016, CVA 1999 with mild R residual, DM, HTN, HLD, gout presented to the ED with left sided chest pain h/o b/l PE 12/05 , on eliquis, comes in with left chest pain, similar to episode in 12/05, but no SOB. Exam is unremarkable Patient is comfortable Duplex lower ext. is neg. D dimer is >4000 Cr is 1.4-1.6 Last dose of eliquis was 5/6 pm will cover with lovenox, until we r/o recurrent PE --- CTA if cR improves with hydration or else V/Q scan. If no e/o PE switch back to eliquis
[2017-08-26] MEDS: LOSARTAN POTASSIUM 50 MG TABLET (FP) PO SCH ×2 (00:31→22:37)
[2017-08-26] MEDS: INSULIN SLIDING SCALE (NOVOLOG) 1 VIAL SQ SCH ×4 (06:06→22:00)
[2017-08-26] MEDS: SODIUM CHLORIDE 1,000 ML IV SCH (06:08)
[2017-08-26] MEDS: glipiZIDE-XL 2.5 MG TAB.ER.24 PO SCH (06:08)
[2017-08-26 06:52] LABS: BASO % 0.7 % (0-2.0); EOS % 10.2 % (0-4.5); HEMOGLOBIN 11.5 GM/dL (10.7-15.3); LYMPH % 51.9 % (8-40); MCH 29.3 pg (25.7-33.7); MCHC 33.8 g/dl (32.0-36.0); MEAN CELL VOLUME 86.6 fl (80-96); MEAN PLT VOLUME 8.1 fl (7.5-11.1); NEUT % 29.2 % (42.8-82.8); PLATELET COUNT 259 K/MM3 (134-434); RBC 3.92 M/mm3 (3.60-5.2); RDW 14.3 % (11.6-15.6); WHITE BLOOD COUNT 6.4 K/mm3 (4.0-10.0)
[2017-08-26 07:04] LABS: ALBUMIN 3.6 g/dl (3.4-5.0); ANION GAP 8 (8-16); BLOOD UREA NITROGEN 23 mg/dL (7-18); CALCIUM 8.6 mg/dL (8.5-10.1); CHLORIDE 111 mmol/L (98-107); CO2 24 mmol/L (21-32); CREATININE 1.3 mg/dL (0.55-1.02); GLUCOSE,RANDOM 107 mg/dL (74-106); SGOT/AST 20 U/L (15-37); SGPT/ALT 18 U/L (12-78); SODIUM 143 mmol/L (136-145)
[2017-08-26 07:06] LABS: ALK PHOS 61 U/L (45-117); BILIRUBIN,TOTAL 0.7 mg/dL (0.2-1.0); TOT PROT 6.8 g/dl (6.4-8.2)
[2017-08-26] MEDS: NIFEdipine E.R. 30 MG TABLET (FP) PO SCH (10:03)
[2017-08-26] MEDS: CHOLECALCIFEROL (VITAMIN D3) 1,000 UNIT TABLET (FP) PO SCH (10:03)
[2017-08-26] MEDS: ASPIRIN 81 MG CHEWABLE TABLETS PO SCH (10:03)
[2017-08-26] MEDS: ENOXAPARIN NA (PORCINE) 80 MG/0.8 ML DISP.SYRIN SQ SCH ×3 (10:03→22:37)
[2017-08-26] MEDS: hydrALAZINE HCL 50 MG TABLET (FP) PO SCH ×2 (10:03→22:37)
--- NOTE | 2017-08-26 11:08 | PN ---
Progress Note, Physician Chief Complaint: see dc summary - Current Medication List Current Medications: Active Medications Aspirin (Asa -) 81 mg PO DAILY [facility] Last Admin: 08/26/17 10:03 Dose: 81 mg Cholecalciferol (Vitamin D3 -) 1,000 unit PO DAILY [facility] Last Admin: 08/26/17 10:03 Dose: 1,000 unit Enoxaparin Sodium (Lovenox -) 80 mg SQ BID [facility] Last Admin: 08/25/17 22:04 Dose: 80 mg Glipizide (Glucotrol Xl -) 2.5 mg PO DAILY@0700 [facility] Last Admin: 08/26/17 06:08 Dose: 2.5 mg Hydralazine HCl (Apresoline -) 50 mg PO BID [facility] Last Admin: 08/26/17 10:03 Dose: 50 mg Sodium Chloride (Normal Saline -) 1,000 mls @ 100 mls/hr IV ASDIR [facility] Last Admin: 08/26/17 06:08 Dose: 100 mls/hr Insulin Aspart (Novolog Vial Sliding Scale -) 1 vial SQ [facility] PRN Reason: Protocol Last Admin: 08/25/17 22:04 Dose: Not Given Insulin Aspart (Novolog Vial Sliding Scale -) 1 vial SQ TIDAC [facility] PRN Reason: Protocol Last Admin: 08/26/17 06:06 Dose: Not Given Losartan Potassium (Cozaar -) 100 mg PO [facility] Last Admin: 08/26/17 00:31 Dose: 100 mg Nifedipine (Procardia Xl -) 30 mg PO DAILY [facility] Last Admin: 08/26/17 10:03 Dose: 30 mg - Objective Vital Signs: Vital Signs Temperature 97.5 F L 08/26/17 06:00 Pulse Rate 59 L 08/26/17 06:00 Respiratory Rate 18 08/26/17 06:00 Blood Pressure 121/57 08/26/17 06:00 O2 Sat by Pulse Oximetry (%) 97 08/25/17 22:00 Labs: CBC, BMP 08/26/17 06:00 08/26/17 06:00 INR, PTT INR 1.12 (0.82-1.09) 08/24/17 22:45
--- NOTE | 2017-08-26 11:48 | PN ---
Progress Note (short form) - Note Progress Note: Last Vital Signs Temp Pulse Resp BP Pulse Ox 97.5 F L 59 L 18 121/57 97 08/26/17 06:00 08/26/17 06:00 08/26/17 06:00 08/26/17 06:00 08/25/17 22:00 CBC, BMP 08/26/17 06:00 08/26/17 06:00 Current Medications Generic Name Dose Route Start Last Admin Trade Name Armin PRN Reason Stop Dose Admin Aspirin 81 mg 08/25/17 10:00 08/26/17 10:03 Asa - PO 81 mg DAILY TERI Administration Cholecalciferol 1,000 unit 08/25/17 10:00 08/26/17 10:03 Vitamin D3 - PO 1,000 unit DAILY TERI Administration Enoxaparin Sodium 80 mg 08/25/17 22:00 08/25/17 22:04 Lovenox - SQ 80 mg BID TERI Administration Glipizide 2.5 mg 08/25/17 07:00 08/26/17 06:08 Glucotrol Xl - PO 2.5 mg DAILY@0700 TERI Administration Hydralazine HCl 50 mg 08/25/17 10:00 08/26/17 10:03 Apresoline - PO 50 mg BID TERI Administration Sodium Chloride 1,000 mls @ 100 mls/hr 08/25/17 02:15 08/26/17 06:08 Normal Saline - IV 100 mls/hr ASDIR TERI Administration Insulin Aspart 1 vial 08/25/17 22:00 08/25/17 22:04 Novolog Vial Sliding Scale - SQ Not Given HS TERI Protocol Insulin Aspart 1 vial 08/25/17 07:00 08/26/17 06:06 Novolog Vial Sliding Scale - SQ Not Given TIDAC TERI Protocol Losartan Potassium 100 mg 08/25/17 23:30 08/26/17 00:31 Cozaar - PO 100 mg HS TERI Administration Nifedipine 30 mg 08/25/17 10:00 08/26/17 10:03 Procardia Xl - PO 30 mg DAILY TERI Administration h/o PE: ruling out recurrent PE with V/Q scan until then will c/w lovenox
--- NOTE | 2017-08-26 14:41 | PN ---
Progress Note, Physician History of Present Illness: pulmonary alert,feeling better,less cp,-sob - Current Medication List Current Medications: Active Medications Aspirin (Asa -) 81 mg PO DAILY [facility] Last Admin: 08/26/17 10:03 Dose: 81 mg Cholecalciferol (Vitamin D3 -) 1,000 unit PO DAILY [facility] Last Admin: 08/26/17 10:03 Dose: 1,000 unit Enoxaparin Sodium (Lovenox -) 80 mg SQ BID [facility] Last Admin: 08/26/17 12:08 Dose: 80 mg Glipizide (Glucotrol Xl -) 2.5 mg PO DAILY@0700 [facility] Last Admin: 08/26/17 06:08 Dose: 2.5 mg Hydralazine HCl (Apresoline -) 50 mg PO BID [facility] Last Admin: 08/26/17 10:03 Dose: 50 mg Sodium Chloride (Normal Saline -) 1,000 mls @ 100 mls/hr IV ASDIR [facility] Last Admin: 08/26/17 06:08 Dose: 100 mls/hr Insulin Aspart (Novolog Vial Sliding Scale -) 1 vial SQ [facility] PRN Reason: Protocol Last Admin: 08/25/17 22:04 Dose: Not Given Insulin Aspart (Novolog Vial Sliding Scale -) 1 vial SQ TIDAC [facility] PRN Reason: Protocol Last Admin: 08/26/17 12:12 Dose: Not Given Losartan Potassium (Cozaar -) 100 mg PO [facility] Last Admin: 08/26/17 00:31 Dose: 100 mg Nifedipine (Procardia Xl -) 30 mg PO DAILY [facility] Last Admin: 08/26/17 10:03 Dose: 30 mg - Objective Vital Signs: Vital Signs Temperature 97.5 F L 08/26/17 06:00 Pulse Rate 59 L 08/26/17 06:00 Respiratory Rate 18 08/26/17 06:00 Blood Pressure 121/57 08/26/17 06:00 O2 Sat by Pulse Oximetry (%) 97 08/25/17 22:00 Constitutional: Yes: Well Nourished, Calm Eyes: Yes: WNL HENT: Yes: WNL Neck: Yes: WNL Cardiovascular: Yes: Regular Rate and Rhythm, S1, S2 Respiratory: Yes: Diminished Gastrointestinal: Yes: Normal Bowel Sounds, Soft Extremities: Yes: WNL Edema: No Labs: CBC, BMP 08/26/17 06:00 08/26/17 06:00 INR, PTT INR 1.12 (0.82-1.09) 08/24/17 22:45 - ....Imaging Ultrasound: Report Reviewed, Image Reviewed (-dvt) Problem List - Problems (1) Chest pain Code(s): R07.9 - CHEST PAIN, UNSPECIFIED (2) Pleuritic chest pain Code(s): R07.81 - PLEURODYNIA (3) Pulmonary embolism Code(s): I26.99 - OTHER PULMONARY EMBOLISM WITHOUT ACUTE COR PULMONALE (4) CKD (chronic kidney disease) Code(s): N18.9 - CHRONIC KIDNEY DISEASE, UNSPECIFIED (5) Hypertension Code(s): I10 - ESSENTIAL (PRIMARY) HYPERTENSION (6) H/O: CVA (cerebrovascular accident) Code(s): Z86.73 - PRSNL HX OF TIA (TIA), AND CEREB INFRC W/O RESID DEFICITS (7) Diabetes Code(s): E11.9 - TYPE 2 DIABETES MELLITUS WITHOUT COMPLICATIONS (8) Hypertension Code(s): I10 - ESSENTIAL (PRIMARY) HYPERTENSION Assessment/Plan IMP CHEST PAIN SYNDROME ? PE,?MUSCULOSKELETAL ASHD S/P [place] H/P PE H/O CVA DM HTN CKD PLAN CHECK V/Q SCAN ANALGESICS AC MONITOR LYTES,RENAL FUNCTION DR COLE Problem List - Problems (1) Chest pain Code(s): R07.9 - CHEST PAIN, UNSPECIFIED (2) Pleuritic chest pain Code(s): R07.81 - PLEURODYNIA (3) Pulmonary embolism Code(s): I26.99 - OTHER PULMONARY EMBOLISM WITHOUT ACUTE COR PULMONALE (4) CKD (chronic kidney disease) Code(s): N18.9 - CHRONIC KIDNEY DISEASE, UNSPECIFIED (5) Hypertension Code(s): I10 - ESSENTIAL (PRIMARY) HYPERTENSION (6) H/O: CVA (cerebrovascular accident) Code(s): Z86.73 - PRSNL HX OF TIA (TIA), AND CEREB INFRC W/O RESID DEFICITS (7) Diabetes Code(s): E11.9 - TYPE 2 DIABETES MELLITUS WITHOUT COMPLICATIONS (8) Hypertension Code(s): I10 - ESSENTIAL (PRIMARY) HYPERTENSION
[2017-08-27] MEDS: SODIUM CHLORIDE 1,000 ML IV SCH (06:14)
[2017-08-27] MEDS: INSULIN SLIDING SCALE (NOVOLOG) 1 VIAL SQ SCH (06:16)
[2017-08-27] MEDS: glipiZIDE-XL 2.5 MG TAB.ER.24 PO SCH (06:16)
[2017-08-27 06:52] VITALS: TEMP 98
--- NOTE | 2017-08-27 09:49 | PN ---
Progress Note, Physician Chief Complaint: chest pain decreased - Current Medication List Current Medications: Active Medications Aspirin (Asa -) 81 mg PO DAILY [facility] Last Admin: 08/26/17 10:03 Dose: 81 mg Cholecalciferol (Vitamin D3 -) 1,000 unit PO DAILY [facility] Last Admin: 08/26/17 10:03 Dose: 1,000 unit Enoxaparin Sodium (Lovenox -) 80 mg SQ BID [facility] Last Admin: 08/26/17 22:37 Dose: 80 mg Glipizide (Glucotrol Xl -) 2.5 mg PO DAILY@0700 [facility] Last Admin: 08/27/17 06:16 Dose: Not Given Hydralazine HCl (Apresoline -) 50 mg PO BID [facility] Last Admin: 08/26/17 22:37 Dose: 50 mg Sodium Chloride (Normal Saline -) 1,000 mls @ 100 mls/hr IV ASDIR [facility] Last Admin: 08/27/17 06:14 Dose: 100 mls/hr Insulin Aspart (Novolog Vial Sliding Scale -) 1 vial SQ [facility] PRN Reason: Protocol Last Admin: 08/26/17 22:00 Dose: Not Given Insulin Aspart (Novolog Vial Sliding Scale -) 1 vial SQ TIDAC [facility] PRN Reason: Protocol Last Admin: 08/27/17 06:16 Dose: Not Given Losartan Potassium (Cozaar -) 100 mg PO [facility] Last Admin: 08/26/17 22:37 Dose: 100 mg Nifedipine (Procardia Xl -) 30 mg PO DAILY [facility] Last Admin: 08/26/17 10:03 Dose: 30 mg - Objective Vital Signs: Vital Signs Temperature 98 F 08/27/17 06:50 Pulse Rate 52 L 08/27/17 06:50 Respiratory Rate 20 08/27/17 06:50 Blood Pressure 130/54 08/27/17 06:50 O2 Sat by Pulse Oximetry (%) 98 08/26/17 22:00 Constitutional: Yes: No Distress, Calm Cardiovascular: Yes: Regular Rate and Rhythm Respiratory: Yes: Diminished Gastrointestinal: Yes: Normal Bowel Sounds, Soft. No: Tenderness Edema: Yes Edema: LLE: Trace, RLE: Trace Labs: CBC, BMP 08/26/17 06:00 08/26/17 06:00 INR, PTT INR 1.12 (0.82-1.09) 08/24/17 22:45 Problem List - Problems (1) Acute pulmonary embolism Code(s): I26.99 - OTHER PULMONARY EMBOLISM WITHOUT ACUTE COR PULMONALE (2) CKD (chronic kidney disease) Code(s): N18.9 - CHRONIC KIDNEY DISEASE, UNSPECIFIED (3) Chest pain Code(s): R07.9 - CHEST PAIN, UNSPECIFIED (4) Diabetes Code(s): E11.9 - TYPE 2 DIABETES MELLITUS WITHOUT COMPLICATIONS Assessment/Plan awaiting VQscan lovenox hematology eval noted
[2017-08-27 10:11] VITALS: BP 129/72; PULSE 74
[2017-08-27] MEDS: hydrALAZINE HCL 50 MG TABLET (FP) PO SCH (10:16)
[2017-08-27] MEDS: NIFEdipine E.R. 30 MG TABLET (FP) PO SCH (10:16)
[2017-08-27] MEDS: ASPIRIN 81 MG CHEWABLE TABLETS PO SCH (10:16)
[2017-08-27] MEDS: ENOXAPARIN NA (PORCINE) 80 MG/0.8 ML DISP.SYRIN SQ SCH (10:17)
[2017-08-27] MEDS: CHOLECALCIFEROL (VITAMIN D3) 1,000 UNIT TABLET (FP) PO SCH (10:17)
--- NOTE | 2017-08-27 10:17 | DS ---
Physical Examination Vital Signs: Vital Signs Temperature 98 F 08/27/17 10:00 Pulse Rate 74 08/27/17 10:00 Respiratory Rate 20 08/27/17 10:00 Blood Pressure 129/72 08/27/17 10:00 O2 Sat by Pulse Oximetry (%) 98 08/27/17 09:00 Constitutional: Yes: No Distress, Calm Cardiovascular: Yes: Regular Rate and Rhythm Respiratory: Yes: CTA Bilaterally Gastrointestinal: Yes: Normal Bowel Sounds, Soft. No: Tenderness Edema: No Labs: CBC, BMP 08/26/17 06:00 08/26/17 06:00 Discharge Summary Reason For Visit: CHEST PAIN PULMONARY EMBOLISM PLEURODYNI Current Active Problems Chest pain (Acute) Diabetes (Acute) H/O: CVA (cerebrovascular accident) (Acute) Hypertension (Acute) Pleuritic chest pain (Acute) Pulmonary embolism (Acute) Hospital Course: admitted for chest pain Seen by Cardiology, pulmonary and Hematology She had repeat V/Q scan done-- negative for PE-- initially lovenox was started , now dc after V/Q scan results Restarted Eliquis Cardiac lópez stable per Cardiology Chest pain -- musculoskeletal stable for dc home will consider pulmonary rehab Condition: Improved - Instructions Diet, Activity, Other Instructions: consider outpt pulmonary rehab Referrals: Neda Robertson MD [Primary Care Provider] - Disposition: HOME - Home Medications Comprehensive Discharge Medication List: Ambulatory Orders Apixaban [Eliquis] 5 mg PO BID 08/24/17 Aspirin [ASA -] 81 mg PO DAILY 08/24/17 Cholecalciferol (Vitamin D3) [Vitamin D3] 1,000 unit PO DAILY 08/24/17 Glipizide [Glipizide ER] 2.5 mg PO DAILY 08/24/17 Losartan Potassium [Cozaar] 100 mg PO DAILY 08/24/17 Nifedipine [Procardia Xl] 30 mg PO DAILY 08/24/17 hydrALAZINE HCL [Apresoline -] 50 mg PO BID 08/24/17
[2017-08-27] MEDS ORDERED: APIXABAN 5 MG TABLET PO SCH (10:30)
--- NOTE | 2017-08-27 11:37 | PN ---
Progress Note (short form) - Note Progress Note: s: no cp sob palps dizzy; wants to go home o: Current Medications Generic Name Dose Route Start Last Admin Trade Name Armin PRN Reason Stop Dose Admin Apixaban 5 mg 08/27/17 10:30 08/27/17 10:58 Eliquis - PO 5 mg BID TERI Administration Aspirin 81 mg 08/25/17 10:00 08/27/17 10:16 Asa - PO 81 mg DAILY TEIR Administration Cholecalciferol 1,000 unit 08/25/17 10:00 08/27/17 10:17 Vitamin D3 - PO 1,000 unit DAILY TERI Administration Glipizide 2.5 mg 08/25/17 07:00 08/27/17 06:16 Glucotrol Xl - PO Not Given DAILY@0700 TERI Hydralazine HCl 50 mg 08/25/17 10:00 08/27/17 10:16 Apresoline - PO 50 mg BID TERI Administration Insulin Aspart 1 vial 08/25/17 22:00 08/26/17 22:00 Novolog Vial Sliding Scale - SQ Not Given HS TERI Protocol Insulin Aspart 1 vial 08/25/17 07:00 08/27/17 06:16 Novolog Vial Sliding Scale - SQ Not Given TIDAC TERI Protocol Losartan Potassium 100 mg 08/25/17 23:30 08/26/17 22:37 Cozaar - PO 100 mg HS TERI Administration Nifedipine 30 mg 08/25/17 10:00 08/27/17 10:16 Procardia Xl - PO 30 mg DAILY TERI Administration Vital Signs Period Temp Pulse Resp BP Sys/Peacock Pulse Ox Last 24 Hr 97.4 F-98.1 F 52-84 16-20 129-148/53-72 98-98 Constitutional: Yes: Well Nourished, No Distress Eyes: No: Sclera Icterus HENT: No: Nasal Congestion Neck: No: Decreased ROM Respiratory: Yes: CTA Bilaterally. No: Accessory Muscle Use, Rales, Wheezes Gastrointestinal: Yes: Normal Bowel Sounds. No: Distention, Hepatomegaly, Palpable Mass, Tenderness Cardiovascular: Yes: Regular Rate and Rhythm JVD: No Heart Sounds: Yes: S1, S2. No: Gallop Murmur: No: Systolic Murmur, Diastolic Murmur Extremities: No: Cold, Cyanosis Edema: No Integumentary: No: Jaundice Neurological: Yes: Alert, Oriented (x3) Psychiatric: No: Agitated - Other Data Labs, Other Data: CBC, BMP 08/26/17 06:00 08/26/17 06:00 Assessment/Plan echo 08/06: nl lv/rv. impaired relaxation. rvsp 34. echo 11/2016: nl lv/rv, mild lae, mild mr, mod tr, rvsp 30-40 CTA 11/2016: multiple filling defects, PE noted in both rt and left upper and lower pulmonary arteries. RLL consolidation/atelectasis with associated effusion. MIBI 10/05: no ischemia or scar, hyperdynamic EF CXR: chronic (loculated?) L effusion unchanged vs prior ECG 08/24: NSR, WNL (no change vs prior) tele: sr a/p: 86 f hx htn, hl, recent bilateral PE's in november (on eliquis), cva with residual rt sided weakness, (bline cr 1.3), COPD, obesity, niddm p/w cp. atypical - ECG normal, trop neg x 2 - here 08/06 with L sided CP as well--with negative evaluation at that time - current pain is highly musculoskeletal sounding, with positional quality. s/p bilateral pe's november. -cont AC with eliquis--duration per pulm -echo stable as above. chronic diast chf: - appears clinically euvolemic, cxr chronic L effusion. - recent baseline wt range 185-188 HTN: -metoprolol d/c'd 08/06 for bradycardia -home regimen: hydralazine, nifedipine, losartan -bp controlled presently--same meds CKD: - prior creat range here 1.2-1.5 - currently renal fxn stable at baseline h/o CVA - had been on ASA. Now on AC for PE. outpatient hog grader has continued both. hgb stable no bleeding. no further inpatient CV w/u indicated. outpt f/u with dr oakes
== END 2017-08-27 13:55 | disposition home or self-care (01) ==
LOC: JER 20:20 → INTOOBSV 08-25 00:27 → JERBED 08-25 00:27 → UNDOADMOB 08-25 00:27 → UNDOADMIN 08-25 00:36 → JERBED 08-25 00:36 → J4S 08-25 19:47
PROVIDERS: ADMIT Internal Medicine; ATTEND Internal Medicine
PROC: 3E0337Z Introduction of Electrolytic and Water Balance Substance into Peripheral Vein, Percutaneous Approach (ICD-10-PCS; principal; 2017-08-25)
DX: R07.9 Chest pain, unspecified (principal); N17.9 Acute kidney failure, unspecified; E11.22 Type 2 diabetes mellitus with diabetic chronic kidney disease; I12.9 Hypertensive chronic kidney disease with stage 1 through stage 4 chronic kidney disease, or unspecified chronic kidney disease; N18.9 Chronic kidney disease, unspecified; Z79.84 Long term (current) use of oral hypoglycemic drugs; I25.10 Atherosclerotic heart disease of native coronary artery without angina pectoris; I25.2 Old myocardial infarction; I50.32 Chronic diastolic (congestive) heart failure; I69.354 Hemiplegia and hemiparesis following cerebral infarction affecting left non-dominant side; E78.5 Hyperlipidemia, unspecified; M10.9 Gout, unspecified; Z86.711 Personal history of pulmonary embolism; Z88.2 Allergy status to sulfonamides; Z91.010 Allergy to peanuts
CPT/HCPCS: 36415; 71045-TC-FY; 71046-TC-FY; 78582-TC; 80048; 80053; 82550; 82553; 82962; 83735; 84100; 84484; 85025; 85379; 85610; 85730; 93005; 93010; 93970-TC; 99285-25; A9539; A9540; G0378; J7030

== ENCOUNTER 2018-10-27 13:43 | Emergency (ER) | payer OTHER ==
[2018-10-27 13:59] VITALS: BMI 24.3
[2018-10-27] MEDS ORDERED: ACETAMINOPHEN 500 MG TABLET (FP) PO ONE (15:33)
--- NOTE | 2018-10-27 15:33 | PDOC ---
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 Pt states that she usually has this pressure sensation whenever her systolic bp is >150. 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 She denies changes in vision, dizziness, lightheadedness, imbalance, chest pain, worsening sob, n/v/d, fevers, chills, cough, swelling. She takes her medications everyday and states she took an extra hydralazine at 2pm in the office today. No new changes in medications. PMD: Yamilet Robertson Renal: Fabio Joiner Cards: Cecile PMH: see hpi PSH: Meds: see med rec Allergies: sulfa Past History - Past Medical History Allergies/Adverse Reactions: Allergies Allergy/AdvReac Type Severity Reaction Status Date / Time Sulfa (Sulfonamide Allergy Intermediate Hives Verified 08/24/17 20:39 Antibiotics) peanut Allergy Unknown Verified 08/24/17 20:39 Home Medications: Ambulatory Orders Apixaban [Eliquis] 5 mg PO BID 08/24/17 Aspirin [ASA -] 81 mg PO DAILY 08/24/17 Cholecalciferol (Vitamin D3) [Vitamin D3] 1,000 unit PO DAILY 08/24/17 Glipizide [Glipizide ER] 2.5 mg PO DAILY 08/24/17 Losartan Potassium [Cozaar] 100 mg PO DAILY 08/24/17 Nifedipine [Procardia Xl] 30 mg PO DAILY 08/24/17 hydrALAZINE HCL [Apresoline -] 50 mg PO BID 08/24/17 Cardiac Disorders: Yes CVA: Yes (1999, mild right sided weakness) COPD: No Diabetes: Yes HTN: Yes Hypercholesterolemia: Yes - Surgical History Orthopedic Surgery: Yes (left knee surgery) - Immunization History Immunization Up to Date: Yes - Suicide/Smoking/Psychosocial Hx Smoking Status: No Smoking History: Never smoked Have you smoked in the past 12 months: No Number of Cigarettes Smoked Daily: 0 Hx Alcohol Use: No Drug/Substance Use Hx: No Substance Use Type: None Hx Substance Use Treatment: No Review of Systems - Review of Systems Constitutional: No: Symptoms Reported HEENTM: Yes: See HPI. No: Eye Pain, Blurred Vision Respiratory: No: Symptoms reported Cardiac (ROS): No: Symptoms Reported ABD/GI: No: Symptoms Reported : No: Symptoms Reported Musculoskeletal: No: Symptoms Reported Integumentary: No: Symptoms Reported Neurological: Yes: See HPI, Headache. No: Numbness, Paresthesia, Tingling, Tremors, Weakness, Unsteady Gait *Physical Exam - Vital Signs Last Vital Signs Temp Pulse Resp BP Pulse Ox 97.8 F 67 20 161/60 98 10/27/18 13:56 10/27/18 13:56 10/27/18 13:56 10/27/18 13:56 10/27/18 13:56 - Physical Exam General Appearance: Yes: Nourished, Appropriately Dressed. No: Apparent Distress HEENT: positive: EOMI, JANEE, Normal ENT Inspection Neck: positive: Trachea midline, Supple Respiratory/Chest: positive: Lungs Clear, Normal Breath Sounds Cardiovascular: positive: Regular Rhythm, Regular Rate, S1, S2. negative: Edema , JVD, Murmur Vascular Pulses: Dorsalis-Pedis (R): 2+, Doralis-Pedis (L): 2+ Gastrointestinal/Abdominal: positive: Normal Bowel Sounds, Soft. negative: Tender Musculoskeletal: negative: CVA Tenderness Extremity: positive: Normal Capillary Refill, Pelvis Stable. 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 Pt states that she usually has this pressure sensation whenever her systolic bp is >150. 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 She denies changes in vision, dizziness, lightheadedness, imbalance, chest pain, worsening sob, n/v/d, fevers, chills, cough, swelling. She takes her medications everyday and states she took an extra hydralazine at 2pm in the office today. No new changes in medications. Vitals: bp 160s systolic PE: benign Ddx includes but not limited to intracranial bleed, hypertensive urgency, tension ramos -ct head -ekg -labs -tylenol for ramos all labs wnl. cr at baseline ct head negative for acute pathology pt feeling slightly better. will give reglan. pt feeling slightly better. has pmd f/u and is ambulatory, no neurological deficits. safe for dc home. given return precautions. 10/27/18 23:07 *DC/Admit/Observation/Transfer Diagnosis at time of Disposition: Headache Qualifiers: Headache type: unspecified Headache chronicity pattern: acute headache Intractability: not intractable Qualified Code(s): R51 - Headache Hypertension Qualifiers: Hypertension type: unspecified Qualified Code(s): I10 - Essential (primary) hypertension - Discharge Dispostion Disposition: HOME Condition at time of disposition: Good Decision to Admit order: No - Referrals Referrals: Neda Robertson MD [Primary Care Provider] - Shanti Joiner MD [Staff Physician] - - Patient Instructions Printed Discharge Instructions: DI for High Blood Pressure Additional Instructions: You were seen in the emergency room today for high blood pressure. The blood tests were normal and the CT scan was also normal. Please continue taking your medications as prescribed. You should talk to Dr. Joiner about what to take when your blood pressure is high at home. I recommend making an appointment with your primary care doctor this week to discuss the emergency room visit. Come back to the emergency room if headache gets worse, you have changes in vision, you have numbness/tingling, you have difficulty walking, you have chest pain, you feel more short of breath than usual or if any new concerning symptom develops. Thank you - Post Discharge Activity
[2018-10-27] MEDS ORDERED: ACETAMINOPHEN 325 MG TABLET (FP) ONE (15:52)
[2018-10-27 16:15] LABS: BASO % 0.9 % (0-2.0); EOS % 4.3 % (0-4.5); HEMATOCRIT 37.2 % (32.4-45.2); HEMOGLOBIN 12.2 GM/dL (10.7-15.3); LYMPH % 38.8 % (8-40); MCH 28.5 pg (25.7-33.7); MCHC 32.9 g/dl (32.0-36.0); MEAN CELL VOLUME 86.6 fl (80-96); MEAN PLT VOLUME 8.3 fl (7.5-11.1); MONO % 8.8 % (3.8-10.2); NEUT % 47.2 % (42.8-82.8); PLATELET COUNT 264 K/MM3 (134-434); RBC 4.29 M/mm3 (3.60-5.2); RDW 14.4 % (11.6-15.6)
[2018-10-27 16:27] LABS: INR 1.36 (0.83-1.09); PROTHROMBIN TIME (PATIENT) 16.1 SEC (9.7-13.0)
[2018-10-27 17:03] LABS: ALBUMIN 3.8 g/dl (3.4-5.0); BILIRUBIN,TOTAL 0.3 mg/dL (0.2-1); BLOOD UREA NITROGEN 29.9 mg/dL (7-18); CALCIUM 9.2 mg/dL (8.5-10.1); CREATININE 1.5 mg/dL (0.55-1.3); POTASSIUM 3.9 mmol/L (3.5-5.1); TOT PROT 7.2 g/dl (6.4-8.2)
--- NOTE | 2018-10-27 17:20 | PDOC ---
Documentation entered by Yan Pelayo SCRIBE, acting as scribe for Mekhi García MD. Mekhi García MD: This documentation has been prepared by the anande, Yan Pelayo SCRIBE, under my direction and personally reviewed by me in its entirety. I confirm that the documentation accurately reflects all work, treatment, procedures, and medical decision making performed by me. Attending Attestation - Resident Resident Name: Sa Elissaira - ED Attending Attestation I have performed the following: I have examined & evaluated the patient, The case was reviewed & discussed with the resident, I agree w/resident's findings & plan - HPI HPI: 10/27/18 16:36 Patient is an 88 year old female with a significant past medical history of [place], PE, GOUT, DM, HTN, CVA, HLD, and CAD who presents to the ED with elevated Blood Pressure and bilateral frontal Head pressure behind her eyes. Patient notes that she has had similar head pressure when her blood pressure is elevated and when she was seen at her PCP, she was advised to come into the ED. Patient noted pain worsens when she closes her eyes. Denies Nausea, fever, chills, change in vision. Allergies: Sulfa and Peanuts PCP: Dr. Hagan - Physicial Exam PE: 10/27/18 16:36 GENERAL: The patient is awake, alert, and fully oriented, Nontoxic - in no acute distress. HEAD: Normocephalic, atraumatic. EYES: extraocular movements intact, sclera anicteric, conjunctiva clear. ENT: Normal voice, Moist mucous membranes. NECK: Normal range of motion, supple without lymphadenopathy, JVD, or masses. LUNGS: Breath sounds equal, clear to auscultation bilaterally. No wheezes, no crackles, no rales. HEART: Regular rate and rhythm, normal S1 and S2 without murmur, rub or gallop. ABDOMEN: Soft, nontender, normoactive bowel sounds. No guarding, no rebound. No masses. EXTREMITIES: Normal range of motion, no edema. No clubbing or cyanosis. No cords, erythema, or tenderness. NEUROLOGICAL: No facial asymmetry, Normal speech, normal gait. PSYCH: Normal mood, normal affect. SKIN: Warm, Dry, normal turgor, no rashes or lesions noted. - Medical Decision Making 10/27/18 16:08 88y F hx of [place] sp CAD, PE on eliquis, GOUT, DM, HTN, CVA, HLD, sent by PMD for hypertension. Endorses mild b/l frontal pressure that is consistent with prior heaadche/pressure due to elevated bp. pt notes pain is a pressure behind her eyes that she gtes frequently when her bp is elevated. denies any cp, sob, n/v, numbnes/tingling/weakness, neck pain, vision changes, dysarthria. exam non focal will give tylenol will rairo bp will reassess 10/27/18 17:19 labs reviewed cr approx baseline 10/27/18 18:08 pt feeling ipmroved anticipate dc with pmd fu Heart Score/ECG Review - ECG Impressions Comment:: 10/27/18 17:20 Twelve-lead EKG was performed and reviewed by me. There is normal sinus rhythm with a normal rate. Rate of 66 The axis is normal. The intervals are normal. There is normal R wave progression There are no ST or T wave abnormalities. Impression: Normal twelve-lead EKG
[2018-10-27] MEDS ORDERED: METOCLOPRAMIDE HCL INJECTION 10 MG/2 ML VIAL IVPUSH ONE (17:24)
[2018-10-27] MEDS ORDERED: METOCLOPRAMIDE HCL 10 MG TABLET (FP) PO ONE ×2 (18:06→18:07)
[2018-10-27 18:19] VITALS: BP 158/74; PULSE 65; TEMP 97.3
--- NOTE | 2018-10-28 08:33 | EKG ---
Test Reason : Blood Pressure : / mmHG Vent. Rate : 066 BPM Atrial Rate : 066 BPM P-R Int : 198 ms QRS Dur : 108 ms QT Int : 398 ms P-R-T Axes : 041 006 002 degrees QTc Int : 417 ms NORMAL SINUS RHYTHM NORMAL ECG WHEN COMPARED WITH ECG OF 24-AUG-2017 20:34, NO SIGNIFICANT CHANGE WAS FOUND Confirmed by JOSE GILL MD ([id number]) on 10/28/2018 8:32:57 AM Referred By: Confirmed By:JOSE GILL MD
== END 2018-10-27 18:54 | disposition home or self-care (01) ==
LOC: JER 13:43
DX: I10 Essential (primary) hypertension (principal); R51 Headache; E11.9 Type 2 diabetes mellitus without complications; E78.5 Hyperlipidemia, unspecified; Z86.73 Personal history of transient ischemic attack (TIA), and cerebral infarction without residual deficits
CPT/HCPCS: 36415; 70450-TC; 80053; 85025; 85610; 93005; 93010; 99283-25

== ENCOUNTER 2018-11-22 13:59 | Inpatient (IN) | payer OTHER ==
[2018-11-22] MEDS ORDERED: SODIUM CHLORIDE 1,000 ML IV SCH (14:15)
--- NOTE | 2018-11-22 15:00 | PDOC ---
History of Present Illness - General Chief Complaint: CVA/TIA Stated Complaint: RT SIDE WEAKNESS / SOB Time Seen by Provider: 11/22/18 14:18 History Source: Patient Exam Limitations: No Limitations - History of Present Illness Initial Comments: 11/22/18 16:11 88F w/ pmh of HTN, DM, h/o PE(2ys prior, on Eliquis), h/o CVA(1999, h/o of RUE+ RLE weakness w/ residual weakness) brought in by granddaughter after jehovah's witness due to experiencing gait instability with sensation of drifting to the Right and sensation of light-headedness, occurring at ~1330. Prior to episode, no sensation of ALBA/dizziness/CP/palpitations. Has SOB w/ exertion. The morning prior to presentation, ate regular breakfast, went to jehovah's witness, sang in choir. Denies recent F/C/change in vision/CP/cough/dysuria/constipation/diarrhea. Has crampy BLE pain, tingling sensation of distal extremities, and sensation that her legs need to move frequently during the night. Recently, restarted taking her Glipizide despite Dr Neda Hagan recommending she dc it. States that she occasionally feels that her sugars are too high despite not measuring it. Lives at home alone. Ambulates w/ cane when outside. Associated Symptoms: reports: shortness of breath (with exertion). denies: chest pain, cough, diaphoresis, fever/chills, loss of appetite, malaise, nausea/ vomiting, syncope tPA Exclusion Checklist 0-3hr - Time Elapsed Date last known well: 11/22/18 Time last known well: 13:30 Elaspsed time: 1 Day(s) and 18 Hour(s) and 15 Minutes - Thrombolytic Therapy Candidate Is the patient eligible for Thrombolytic Therapy?: Yes - Exclusion Criteria 0-3hr SBP greater than 185 or DBP greater than 110mmHg despite tx: No Recent IC/spinal surgery,head trauma or stroke w/in last 3mo: No Hx of previous IC hemorrhage, IC neoplasm, AVM or aneurysm: No Active internal bleeding: No Blding diathesis(low plt ct, inc PTT,INR>1.7 or use of NOAC): No Symptoms suggest subarachnoid hemorrhage: No CT demonstrates multilobar infarct(>1/3 cerebral hemiphere): No Arterial puncture at noncompressible site in previous 7 days: No Blood glucose concentration less than 50mg/dL (2.7mmol/L): No - Relative Exclusion Criteria 0-3h Life expectancy <1yr/severe co-morbid illness/MACHINE CLEANER on admit: No : No Patient/family refused: No Rapid improvement: No Stroke severity too mild: Yes Recent acute SC (w/in previous 3 months): No Seizure at onset with postictal residual neuro impairments: No Major surgery or serious trauma w/in previous 14 days: No Recent GI or hemorrhage (w/in previous 21 days): No - Ineligibility reason(s) Reasons No tPA given: See reason(s) noted above (NIHSS 0) NIH Stroke Scale - Last Known Well Date/Time & Onset Date Last Known Well: 11/22/18 Time Last Known Well: 13:30 - Initial Evaluation Level of consciousness: Alert Ask patient the month and their age: Answers both correctly Ask patient to open & close eyes; make fist and let go: Obeys both correctly Best gaze (horizontal eye movement): Normal Visual field testing: No visual field loss Facial paresis (Show teeth/raise eyebrows/close eyes tight): Normal symmetrical movement Motor Function: Left Arm: Normal Motor Function: Right Arm: Normal (extends arm 90 (or 45) degrees for 10 seconds without drift Motor Function: Left Leg: Normal (extends leg 30 degrees for 5 seconds without drift) Motor Function: Right Leg: Normal (extends leg 30 degrees for 5 seconds without drift) Limb Ataxia: No ataxia Sensory(Use pinprick test arms,legs,trunk,face/side to side): Normal Best language (Describe picture, name items, read sentences): No Aphasia Dysarthria (read several words): Normal articulation Extinction and Inattention: No abnormality - Total Score NIH Stroke Scale Score: 0 Past History - Travel Traveled outside of the country in the last 30 days: No Close contact w/someone who was outside of country & ill: No - Past Medical History Allergies/Adverse Reactions: Allergies Allergy/AdvReac Type Severity Reaction Status Date / Time Sulfa (Sulfonamide Allergy Intermediate Hives Verified 08/24/17 20:39 Antibiotics) peanut Allergy Unknown Verified 08/24/17 20:39 Home Medications: Ambulatory Orders Apixaban [Eliquis] 5 mg PO BID 08/24/17 Aspirin [ASA -] 81 mg PO AM 08/24/17 Cholecalciferol (Vitamin D3) [Vitamin D3] 1,000 unit PO DAILY 08/24/17 Glipizide [Glipizide ER] 2.5 mg PO DAILY 08/24/17 Nifedipine [Procardia Xl] 30 mg PO AM 08/24/17 hydrALAZINE HCL [Apresoline -] 50 mg PO BID 08/24/17 Cholecalciferol (Vitamin D3) [Vitamin D3] 1,000 unit PO AM 11/22/18 Losartan Potassium [Cozaar] 100 mg PO HS 11/22/18 Anemia: No Asthma: No Cancer: No Cardiac Disorders: Yes CVA: Yes (2000, mild right sided weakness) COPD: No Diabetes: Yes HTN: Yes Hypercholesterolemia: Yes - Surgical History Abdominal Surgery: No Orthopedic Surgery: Yes (left knee surgery) - Family Disease History Comment:: 11/22/18 16:23 none - Immunization History Immunization Up to Date: Yes - Suicide/Smoking/Psychosocial Hx Smoking Status: No Smoking History: Never smoked Years of Tobacco Use: 0 Have you smoked in the past 12 months: No Number of Cigarettes Smoked Daily: 0 Hx Alcohol Use: No Drug/Substance Use Hx: No Substance Use Type: None Hx Substance Use Treatment: No Patient Lives Alone: Yes Review of Systems - Review of Systems Able to Perform ROS?: Yes Is the patient limited Japanese proficient: No Constitutional: Yes: Weakness. No: Chills, Diaphoresis, Fever, Malaise HEENTM: No: Blurred Vision, Double Vision (falling to the Right-side) Respiratory: Yes: Shortness of Breath. No: Cough, Orthopnea, Wheezing, Productive cough Cardiac (ROS): No: Chest Pain, Irregular Heart Rate, Chest Tightness ABD/GI: No: Constipated, Diarrhea, Poor Appetite, Vomiting : No: Burning, Dysuria Musculoskeletal: Yes: Other (tingling in distal extremities) Neurological: Yes: Unsteady Gait. No: Headache, Numbness *Physical Exam - Vital Signs Last Vital Signs Temp Pulse Resp BP Pulse Ox 97.3 F L 66 20 157/70 98 11/22/18 14:12 11/22/18 14:12 11/22/18 14:12 11/22/18 14:12 11/22/18 14:12 - Physical Exam General Appearance: Yes: Nourished, Appropriately Dressed. No: Apparent Distress, Disheveled HEENT: positive: Normal Voice, Symmetrical. negative: Pale Conjunctivae, Scleral Icterus (R), Scleral Icterus (L), Pharyngeal Erythema, Rhinorrhea Neck: positive: Trachea midline, Supple. negative: Lymphadenopathy (R), Lymphadenopathy (L) Respiratory/Chest: positive: Lungs Clear, Normal Breath Sounds. negative: Rales , Stridor, Wheezing Cardiovascular: positive: Regular Rate, S1, S2 Vascular Pulses: Dorsalis-Pedis (R): 2+, Doralis-Pedis (L): 2+ Extremity: positive: Normal Range of Motion. negative: Calf Tenderness Integumentary: positive: Dry, Warm Neurologic: positive: career resource specialist II-XII NML intact, Fully Oriented, Alert, Motor Strength 5/5. negative: Facial Droop, Numbness, Sensory Deficit, Confused, Disoriented ED Treatment Course - LABORATORY CBC & Chemistry Diagram: 11/24/18 05:50 11/24/18 05:50 Medical Decision Making - Medical Decision Making 11/22/18 16:32 - on arrival, NIHSS ~0 - CTH neg for acute intracranial pathology - ordered CBC, CMP 11/22/18 17:29 - Neuro consult: thought b/l HTN microvascular disease, possible new lacunar infarct with recomendation to admit to [facility], get MRI brain 11/22/18 17:41 - orthostatic negative 11/22/18 20:08 - hospitalist GENERATION TECHNOLOGIST service called for sign-out *DC/Admit/Observation/Transfer - Discharge Dispostion Condition at time of disposition: Stable Decision to Admit order: Yes - Referrals - Patient Instructions - Post Discharge Activity
[2018-11-22 15:07] LABS: BASO % 0.5 % (0-2.0); EOS % 3.4 % (0-4.5); HEMATOCRIT 35.6 % (32.4-45.2); LYMPH % 52.2 % (8-40); MCHC 33.7 g/dl (32.0-36.0); MEAN CELL VOLUME 86.1 fl (80-96); MONO % 8.7 % (3.8-10.2); NEUT % 35.2 % (42.8-82.8); PLATELET COUNT 266 K/MM3 (134-434); RBC 4.14 M/mm3 (3.60-5.2); RDW 14.6 % (11.6-15.6); WHITE BLOOD COUNT 5.2 K/mm3 (4.0-10.0)
[2018-11-22 15:22] LABS: INR 1.39 (0.83-1.09); PROTHROMBIN TIME (PATIENT) 16.5 SEC (9.7-13.0)
[2018-11-22 15:32] LABS: HDL CHOLESTEROL 62 mg/dL (40-60); TRIGLYCERIDES 141 mg/dL (0-150)
[2018-11-22 15:33] LABS: ALBUMIN 4.2 g/dl (3.4-5.0); BILIRUBIN,TOTAL 0.4 mg/dL (0.2-1); BLOOD UREA NITROGEN 28.1 mg/dL (7-18); CALCIUM 9.7 mg/dL (8.5-10.1); CREATININE 1.6 mg/dL (0.55-1.3); TOT PROT 7.7 g/dl (6.4-8.2)
[2018-11-22 15:34] LABS: CHOLESTEROL 248 mg/dL (50-200)
--- NOTE | 2018-11-22 15:58 | CONSULT ---
Consult - text type - Consultation Consultation Note: NEDUROLOGY CONSULTATION is greatly apprciated: Events and CT scans reviewed and discussed with ED resident. Pt. examined with her granddaugher at the bedside. 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 Recalls it took 1 year to regain right arm use. Walks with cane. S/P B?L pulmonary emboli. On: Apixaban 5 mg PO BID; Aspirin 81 mg; Cholecalciferol; Glipizide; Losartan 100 mg; Nifedipine 30 mg; and hydrALAZINE 50 mg PO BID. Admitted here 2 weeks ago with HTN and headache, CT unremarkable. Was in her [facility] this AM but became unsteady in Religion, listing to the right with increased difficulty walking and lef sided tremor. CT of head (reviewed): diffuse microvascular changes. DORINDA: BP= 160/70. No bruits. Cor reg. NEURO: Awake, alert, anxious. Ox 3 MS/speech: normal CN: II-XII: normal Motor: No drift. Normal strength. Decreased spontaneos mov'ts rigth arm. Slightly reduced right hand KATY's. Sl increased reflexes on right. Toes downgoing. +some cogwheeling L>R Coord: No FTN dysaxia Sensory: Normal Gait: shufling, shortened-strides (L>R). 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 Possible new lacunar infarct in [facility] today. Early extrapyramidal findings on the left. SUGGEST: Admit to telemetry. Control systolic hypertension Continue anticoagulation and antiplatelet Rx MRI of brain (C-) Check orthosttic BP's PT eval and Rx for gait stability Thank you very much, Alexandro Fitch MD
[2018-11-22 18:18] LABS: URINE APPEARANCE CLEAR; URINE BILIRUBIN NEGATIVE (NEGATIVE); URINE COLOR YELLOW; URINE GLUCOSE (UA) NEGATIVE (NEGATIVE); URINE KETONE NEGATIVE (NEGATIVE); URINE LEUK ESTERASE NEGATIVE (NEGATIVE); URINE NITRITE NEGATIVE (NEGATIVE); URINE PROTEIN NEGATIVE (NEGATIVE); URINE UROBILINOGEN 0.2 mg/dL (0.2-1.0)
--- NOTE | 2018-11-22 18:49 | PDOC ---
Documentation entered by Akil Hernandez SCRIBE, acting as scribe for Doug Bellamy MD. Doug Bellamy MD: This documentation has been prepared by the David amador Daniel, SCRIBE, under my direction and personally reviewed by me in its entirety. I confirm that the documentation accurately reflects all work, treatment, procedures, and medical decision making performed by me. Attending Attestation - Resident Resident Name: Sigifredo Matias - ED Attending Attestation I have performed the following: I have examined & evaluated the patient, The case was reviewed & discussed with the resident, I agree w/resident's findings & plan, Exceptions are as noted - HPI HPI: 11/22/18 14:56 The patient is an 88 year old female with a past medical history of PE (on apixaban), NIDDM, CAD, CVA (with residual right sided weakness, 1999) HTN, and HLD here today for evaluation of right sided weakness. Pt states she woke up today in her usual state of health. Went to scientology, and while singing in choir, she noticed that she was leaning to one side. Pt states that it was around 12PM when she noticed she was listing off to her R when she walked. Pt notes that she has residual R sided weakness from a prior CVA, but it was more pronounced today. Pt denies CP/SOB. Denies ALBA/N/V. Denies F/C. Denies any other symptoms. Allergies: sulfa, peanut - Physicial Exam PE: 11/22/18 15:22 GENERAL: Awake, alert, and fully oriented, in no acute distress. HEAD: No signs of trauma EYES: PERRLA, EOMI, sclera anicteric, conjunctiva clear ENT: Auricles normal inspection, hearing grossly normal, nares patent, oropharynx clear without exudates. Moist mucosa NECK: Nontender, no stepoffs, Normal ROM, supple, no lymphadenopathy, JVD, or masses LUNGS: Breath sounds equal, clear to auscultation bilaterally. No wheezes, and no crackles HEART: Regular rate and rhythm, normal S1 and S2, no murmurs, rubs or gallops ABDOMEN: Soft, nontender, normoactive bowel sounds. No guarding, no rebound. No masses EXTREMITIES: Normal range of motion, no edema. No clubbing or cyanosis. No cords, erythema, or tenderness NEUROLOGICAL: Cranial nerves II through XII intact. 5/5 strength and sensation in all extremities, Normal speech, normal gait, normal cerebellar function SKIN: Warm, Dry, normal turgor, no rashes or lesions noted. - Critical Care Time Total Critical Care Time: 60 Critical Care Statement: The care of this patient involved high complexity decision making to prevent further life threatening deterioration of the patient 's condition and/or to evaluate & treat vital organ system(s) failure or risk of failure. - Medical Decision Making 11/22/18 15:24 88 F with R side weakness today. NIHSS in ED 0, no deficits found on exam. Possible TIA. Pt reports R side weakness with previous stroke. Possible recrudescence. - Labs - CT head - UA, CXR - Neuro c/s NIH Stroke Scale - Last Known Well Date/Time & Onset Date Last Known Well: 11/22/18 Time Last Known Well: 12:00 - Initial Evaluation Level of consciousness: Alert Ask patient the month and their age: Answers both correctly Ask patient to open & close eyes; make fist and let go: Obeys both correctly Best gaze (horizontal eye movement): Normal Visual field testing: No visual field loss Facial paresis (Show teeth/raise eyebrows/close eyes tight): Normal symmetrical movement Motor Function: Left Arm: Normal Motor Function: Right Arm: Normal (extends arm 90 (or 45) degrees for 10 seconds without drift Motor Function: Left Leg: Normal (extends leg 30 degrees for 5 seconds without drift) Motor Function: Right Leg: Normal (extends leg 30 degrees for 5 seconds without drift) Limb Ataxia: No ataxia Sensory(Use pinprick test arms,legs,trunk,face/side to side): Normal Best language (Describe picture, name items, read sentences): No Aphasia Dysarthria (read several words): Normal articulation Extinction and Inattention: No abnormality - Total Score NIH Stroke Scale Score: 0
--- NOTE | 2018-11-22 20:21 | HP ---
Admitting History and Physical - Primary Care Physician PCP: Neda Robertson - Admission Chief Complaint: Lightheadedness, Gait Changes, Weakness History of Present Illness: This is a 88 y/o woman with a PMHx of HTN, DM, h/o PE(2ys prior, on Eliquis), h/ o CVA(1999, h/o of RUE+RLE weakness w/ residual weakness). Who presents to the ED with her granddaughter after [employer]abapt[employer] due to experiencing gait instability with sensation of drifting to the Right and sensation of light-headedness, occurring at ~1330. Prior to episode, no sensation of ALBA/dizziness/CP/ palpitations. Has SOB w/ exertion. The morning prior to presentation, ate regular breakfast, went to [employer], sang in choir. Denies recent F/C/change in vision/CP/cough/dysuria/constipation/diarrhea. Has crampy BLE pain, tingling sensation of distal extremities, and sensation that her legs need to move frequently during the night. Recently, restarted taking her Glipizide despite Dr Neda Hagan recommending she dc it. States that she occasionally feels that her sugars are too high despite not measuring it. Lives at home alone. Ambulates w/ cane when outside. 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 Cardiovascular: Yes: HTN, Hyperlipdemia Pulmonary: Yes: Pulmonary Embolus (recent diagnosis of PE on Eliquis) Renal/: Yes: Renal Inusuff - Smoking History Smoking history: Never smoked Have you smoked in the past 12 months: No Aproximately how many cigarettes per day: 0 - Alcohol/Substance Use Hx Alcohol Use: No History of Substance Use: reports: None - Social History Usual Living Arrangement: Yes: Alone ADL: Independent History of Recent Travel: No Home Medications - Allergies Allergies/Adverse Reactions: Allergies Allergy/AdvReac Type Severity Reaction Status Date / Time Sulfa (Sulfonamide Allergy Intermediate Hives Verified 08/24/17 20:39 Antibiotics) peanut Allergy Unknown Verified 08/24/17 20:39 - Home Medications Home Medications: Ambulatory Orders Apixaban [Eliquis] 5 mg PO BID 08/24/17 Aspirin [ASA -] 81 mg PO AM 08/24/17 Cholecalciferol (Vitamin D3) [Vitamin D3] 1,000 unit PO DAILY 08/24/17 Glipizide [Glipizide ER] 2.5 mg PO DAILY 08/24/17 Nifedipine [Procardia Xl] 30 mg PO AM 08/24/17 hydrALAZINE HCL [Apresoline -] 50 mg PO BID 08/24/17 Cholecalciferol (Vitamin D3) [Vitamin D3] 1,000 unit PO AM 11/22/18 Losartan Potassium [Cozaar] 100 mg PO HS 11/22/18 Family Disease History - Family Disease History Family History: Unable to Obtain Review of Systems - Review of Systems Constitutional: reports: Weakness Eyes: reports: No Symptoms HENT: reports: No Symptoms Neck: reports: No Symptoms Cardiovascular: reports: No Symptoms Respiratory: reports: No Symptoms Gastrointestinal: reports: No Symptoms Genitourinary: reports: No Symptoms Breasts: reports: No Symptoms Reported Musculoskeletal: reports: Decreased ROM, Muscle Weakness Integumentary: reports: No Symptoms Neurological: reports: Pre-Existing Deficit, Unsteady Gait, Weakness Endocrine: reports: No Symptoms Hematology/Lymphatic: reports: No Symptoms Psychiatric: reports: No Symptoms Physical Examination Vital Signs: Vital Signs Temperature 97.7 F 11/22/18 17:00 Pulse Rate 58 L 11/22/18 18:51 Respiratory Rate 14 11/22/18 16:32 Blood Pressure 152/61 11/22/18 18:51 O2 Sat by Pulse Oximetry (%) 95 11/22/18 18:51 Constitutional: Yes: Well Nourished, No Distress, Calm Eyes: Yes: WNL, Conjunctiva Clear, EOM Intact HENT: Yes: WNL, Atraumatic, Normocephalic Neck: Yes: WNL, Supple, Trachea Midline Cardiovascular: Yes: WNL, Regular Rate and Rhythm, S1, S2 Respiratory: Yes: WNL, Regular, CTA Bilaterally Gastrointestinal: Yes: WNL, Normal Bowel Sounds, Soft Renal/: Yes: WNL Breast(s): Yes: WNL Musculoskeletal: Yes: WNL Extremities: Yes: WNL Edema: No Peripheral Pulses WNL: Yes Neurological: Yes: Alert, Oriented, Weakness (RUE, RLE) ...Motor Strength: LUE (5/5), LLE (5/5), RUE (3/5), RLE (3/5) Psychiatric: Yes: WNL, Alert, Oriented Labs: CBC, BMP 11/22/18 14:46 11/22/18 14:46 Imaging - Results Chest X-ray: Image Reviewed Cat Scan: Report Reviewed, Image Reviewed MRI: Pending EKG: Image Reviewed Problem List - Problems (1) CVA (cerebral vascular accident) Code(s): I63.9 - CEREBRAL INFARCTION, UNSPECIFIED (2) CKD (chronic kidney disease) Code(s): N18.9 - CHRONIC KIDNEY DISEASE, UNSPECIFIED (3) Diabetes Code(s): E11.9 - TYPE 2 DIABETES MELLITUS WITHOUT COMPLICATIONS (4) H/O: CVA (cerebrovascular accident) Code(s): Z86.73 - PRSNL HX OF TIA (TIA), AND CEREB INFRC W/O RESID DEFICITS (5) Hypertension Code(s): I10 - ESSENTIAL (PRIMARY) HYPERTENSION (6) Hypertension Code(s): I10 - ESSENTIAL (PRIMARY) HYPERTENSION Qualifiers: Hypertension type: unspecified Qualified Code(s): I10 - Essential (primary ) hypertension Assessment/Plan This is a 88 y/o woman with a PMHx of HTN, HLD, PE (on Eliquis), s/p CVA ( R- Residual, 1999), recent admission- Headache 2 weeks ago, Head CT neg. Admitted to Telemetry for CVA for further evaluation of their emergent condition. Plan: Admit Continue cardiac monitoring HEAD CT- ? new lacunar infarct, diffuse microvascular changes Neurology following MRI- pending Swallow Eval Neurochecks Continue home meds Monitor CBC, BMP Fall precautions Aspiration Precautions HOB elevated FEN- PO fluids as tolerated, replete lytes, Low Na Diet DVT ppx- OOB, SCDs, Continue Eliquis Dispo: Requires Inpatient Care Visit type - Emergency Visit Emergency Visit: Yes ED Registration Date: 11/22/18 Care time: The patient presented to the Emergency Department on the above date and was hospitalized for further evaluation of their emergent condition. - New Patient This patient is new to me today: Yes Date on this admission: 11/22/18 - Critical Care Critical Care patient: No
[2018-11-22] MEDS ORDERED: APIXABAN 5 MG TABLET PO ONE (20:42)
[2018-11-23] MEDS ORDERED: LOSARTAN POTASSIUM 50 MG TABLET (FP) PO ONE (01:15)
[2018-11-23] MEDS ORDERED: LOSARTAN POTASSIUM 50 MG TABLET (FP) ONE (01:22)
[2018-11-23] MEDS: APIXABAN 2.5 MG TABLET PO SCH ×3 (01:30→21:24)
[2018-11-23] MEDS ORDERED: hydrALAZINE HCL 25 MG TABLET (FP) ONE ×2 (02:33→10:16)
[2018-11-23] MEDS: hydrALAZINE HCL 50 MG TABLET (FP) PO SCH ×2 (02:40→10:17)
[2018-11-23 07:33] LABS: BLOOD UREA NITROGEN 23.1 mg/dL (7-18); CALCIUM 9.2 mg/dL (8.5-10.1); CREATININE 1.3 mg/dL (0.55-1.3); MAGNESIUM 2.3 mg/dL (1.8-2.4); POTASSIUM 3.8 mmol/L (3.5-5.1)
[2018-11-23 08:34] LABS: BASO % 0.4 % (0-2.0); EOS % 3.2 % (0-4.5); HEMATOCRIT 34.3 % (32.4-45.2); HEMOGLOBIN 11.7 GM/dL (10.7-15.3); LYMPH % 34.8 % (8-40); MCH 29.4 pg (25.7-33.7); MCHC 34.1 g/dl (32.0-36.0); MEAN CELL VOLUME 86.4 fl (80-96); MEAN PLT VOLUME 8.3 fl (7.5-11.1); MONO % 10.8 % (3.8-10.2); NEUT % 50.8 % (42.8-82.8); PLATELET COUNT 248 K/MM3 (134-434); RBC 3.97 M/mm3 (3.60-5.2); RDW 14.5 % (11.6-15.6); WHITE BLOOD COUNT 6.1 K/mm3 (4.0-10.0)
[2018-11-23] MEDS ORDERED: NIFEdipine E.R. 30 MG TABLET (FP) PO SCH (10:00)
[2018-11-23] MEDS ORDERED: ASPIRIN 81 MG CHEWABLE TABLETS ONE (10:16)
[2018-11-23] MEDS ORDERED: APIXABAN 5 MG TABLET PO ONE (10:16)
[2018-11-23] MEDS: ASPIRIN 81 MG CHEWABLE TABLETS PO SCH (10:17)
[2018-11-23] MEDS ORDERED: NIFEdipine E.R. 30 MG TABLET (FP) ONE (10:17)
--- NOTE | 2018-11-23 10:45 | PN ---
Progress Note (short form) - Note Progress Note: pt seen/ examined chart reviewed awake/ comfortable Vital Signs Temp 97.7 F 11/22/18 17:00 Pulse 60 11/23/18 05:00 Resp 16 11/23/18 05:00 BP 118/49 L 11/23/18 05:00 Pulse Ox 95 11/23/18 05:00 Intake & Output 11/22/18 11/22/18 11/23/18 11:59 23:59 11:59 Weight 182 lb Other: Height 5 ft 8 in Body Mass Index (BMI) 27.6 Weight Measurement Method Est/Stated by Patient Active Medications Apixaban (Eliquis -) 2.5 mg PO BID [facility] Last Admin: 11/23/18 10:17 Dose: 2.5 mg Aspirin (Asa -) 81 mg PO DAILY [facility] Last Admin: 11/23/18 10:17 Dose: 81 mg Sodium Chloride (Normal Saline -) 1,000 mls @ 42 mls/hr IV ASDIR [facility] Last Admin: 11/22/18 14:50 Dose: 42 mls/hr CBC, BMP 11/23/18 06:46 11/23/18 06:46 Physical Exam Awake/ comfortable heent- no jvd Lungs- clear cvs- s1, s2 rrr abd - soft ext- no edema. Neuro- aox3 moves all extremities a/p cva cad h/o PE h/o cva a/p Discussed MRi Brain neurology consult noted / appreciated HOLD bp meds start on lipitor PT check lipid profile u/s cartid will follow Problem List - Problems (1) CVA (cerebral vascular accident) Code(s): I63.9 - CEREBRAL INFARCTION, UNSPECIFIED (2) CKD (chronic kidney disease) Code(s): N18.9 - CHRONIC KIDNEY DISEASE, UNSPECIFIED (3) Diabetes Code(s): E11.9 - TYPE 2 DIABETES MELLITUS WITHOUT COMPLICATIONS (4) Hypertension Code(s): I10 - ESSENTIAL (PRIMARY) HYPERTENSION
--- NOTE | 2018-11-23 11:52 | EKG ---
Test Reason : Blood Pressure : / mmHG Vent. Rate : 074 BPM Atrial Rate : 074 BPM P-R Int : 174 ms QRS Dur : 106 ms QT Int : 400 ms P-R-T Axes : 061 019 046 degrees QTc Int : 444 ms NORMAL SINUS RHYTHM CANNOT RULE OUT ANTERIOR INFARCT , AGE UNDETERMINED ABNORMAL ECG WHEN COMPARED WITH ECG OF 27-OCT-2018 16:14, T WAVE VARIATION Confirmed by DEEP JACKMAN MD ([id number]) on 11/23/2018 11:52:12 AM Referred By: Confirmed By:DEEP JACKMAN MD
[2018-11-23 13:53] VITALS: BMI 26.0
--- NOTE | 2018-11-23 14:11 | ECHO ---
Name: MELINA AU Exam:Adult Echocardiogram Study Date: 11/23/2018 12:46 PM Age: 88 yrs Reason For Study: cva Height: 68 in Weight: 182 lb BSA: 2.0 m2 Procedure A complete two-dimensional transthoracic echocardiogram was performed (2D, M-mode, Doppler and color flow Doppler). Left Ventricle The left ventricle is normal in size. Left ventricular systolic function is normal. Ejection Fraction = 65- 70%. No regional wall motion abnormalities noted. Right Ventricle The right ventricle is normal size. The right ventricular systolic function is normal. Atria The left atrium is mildly dilated. Right atrial size is normal. Mitral Valve There is mild mitral annular calcification. There is mild mitral valve thickening. There is no mitral regurgitation noted. Tricuspid Valve The tricuspid valve is normal in structure and function. There is mild tricuspid regurgitation. Right ventricular systolic pressure is normal. Aortic Valve There is mild aortic sclerosis.;. No aortic regurgitation is present. Pulmonic Valve The pulmonic valve is not well visualized. Great Vessels The aortic root is normal size. Pericardium/Pleura There is no pericardial effusion. Interpretation Summary The left ventricle is normal in size. Left ventricular systolic function is normal. No regional wall motion abnormalities noted. Ejection Fraction = 65-70%. The right ventricular systolic function is normal. The left atrium is mildly dilated. Right atrial size is normal. There is mild mitral annular calcification. There is mild mitral valve thickening. There is no mitral regurgitation noted. The tricuspid valve is normal in structure and function. There is mild tricuspid regurgitation. Right ventricular systolic pressure is normal. There is mild aortic sclerosis. There is no pericardial effusion. Previous study is not available for comparison Christopher Murphy MD 11/23/2018 02:11 PM
--- NOTE | 2018-11-23 15:06 | CONSULT ---
Admitting History and Physical - Primary Care Physician PCP: Chacorta Mcgarry - Admission History of Present Illness: This is a 88 y/o woman with a PMHx of HTN, HLD, PE (on Eliquis), s/p CVA ( R- Residual, 1999), recent admission- Headache 2 weeks ago, Head CT neg. HEAD CT- ? 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 Cardiovascular: Yes: HTN, Hyperlipdemia Pulmonary: Yes: Pulmonary Embolus (recent diagnosis of PE on Eliquis) Renal/: Yes: Renal Inusuff - Smoking History Smoking history: Never smoked Have you smoked in the past 12 months: No Aproximately how many cigarettes per day: 0 - Alcohol/Substance Use Hx Alcohol Use: No History of Substance Use: reports: None - Social History ADL: Independent History of Recent Travel: No History - Admission Reason For Visit: CVA - Diagnostics X-ray: Report Reviewed CT Scan: Report Reviewed MRI: Pending - General Mental Status: Alert and Oriented, Awake and Alert, Able to Follow Commands Attention: Intact Ability to Follow Directions: Excellent Head/Neck Control: WFL - Hearing Hearing: Functional Hearing: Impaired Hearing Aide: Yes (L ear only) With Patient: Yes Speech Evaluation - Communication Primary Language: RUSSIAN Communication: Yes: Within Normal Limits - Speech Production Able to Make Needs Known: Yes: WNL Intelligibility: Yes: WNL - Speech Characteristics Voice Loudness: Normal Voice Pitch: Yes: Normal Voice Phonatory-based Quality: Yes: Normal Speech Pattern: Normal Speech Clarity: < 100% Nasal Resonance: Normal Articulation: Yes: Precise Rate of Speech: Intact - Language/Auditory Comprehension Follows: Yes: 2 Stage Simple Commands - Language/Verbal Expression Able to Respond to Simple Queries: Yes: WNL Able to Communicate Wants and Needs: Yes: WNL Functional Communication Status: Yes: WNL - Swallow Evaluation/Bedside Assessment Current Nutritional Intake: Regular, Thin Liquids Oral Secretions: Yes: WFL Dentition: Yes: Adequate Facial Symmetry at Rest: Symmetrical Facial Symmetry on Retraction: Symmetrical Sensation: Normal Against Resistance Opening: Normal Against Resistance Closing: Normal Pucker Lips: Normal Smile: Normal Lingual Movement: Normal, Symmetric Lingual Speed of Movement: Normal Lingual Movement Strgth Against Opposition: Normal Lingual Movement Characteristics: Normal Velopharyngeal Movement: Normal Laryngeal Elevation: WFL Laryngeal Movement: Able to Palpate Rate of Intake: WFL Bolus Size: WFL Labial Seal: WFL Chewing: WFL Oral Prep Time: WFL A-P Transit: WFL Pocketing: None Timing of Swallow: WFL Coughing/Throat Clear: No Change in Voice: No Recommendations - Speech Evaluation, Impression/Plan Impression: Speech production,language, cognition, swallowing all intact. - Dysphagia Impressions/Plan Swallowing Skills: WF Dysphagia Impressions: No Impairment *Silent aspiration: cannot be R/O at bedside - Recommendations Diet Consistency: Regular Medication Administration: Whole with water Liquids: Thin Liquids
--- NOTE | 2018-11-23 15:42 | CON.CARD ---
Cardiology Consult (text) - Consultation Consultation Note: Consult Specialty:: cardio - History of Present Illness Chief Complaint: lightheadedness, weakness History of Present Illness: 88 F p/w lightheadedness, weakness. Was [place] [employer] yesterday, sang in choir, went back to sit down and after getting up again felt that she was falling towards right side. [employer] off, dizzy as well. Sees Dr. Huber for cardio. no chest pain, palps, edema, dyspnea PMH: h/o PEs 12/05 diast CHF HTN CKD DM CVA - Past Medical History [facility]: Yes: CVA Cardio/Vascular: Yes: HTN Pulmonary: Yes: Pulmonary Embolus (recent diagnosis of PE on Eliquis) Renal/: Yes: Renal Inusuff - Alcohol/Substance Use Hx Alcohol Use: No - Smoking History Smoking history: Never smoked Have you smoked in the past 12 months: No Aproximately how many cigarettes per day: 0 Home Medications - Allergies Allergies/Adverse Reactions: Allergies Allergy/AdvReac Type Severity Reaction Status Date / Time Sulfa (Sulfonamide Allergy Intermediate Hives Verified 08/24/17 20:39 Antibiotics) peanut Allergy Unknown Verified 08/24/17 20:39 Home Medications Medication Instructions Recorded Apixaban [Eliquis] 5 mg PO BID 08/24/17 Aspirin [ASA -] 81 mg PO AM 08/24/17 Cholecalciferol (Vitamin D3) 1,000 unit PO DAILY 08/24/17 [Vitamin D3] Glipizide [Glipizide ER] 2.5 mg PO DAILY 08/24/17 Nifedipine [Procardia Xl] 30 mg PO AM 08/24/17 hydrALAZINE HCL [Apresoline -] 50 mg PO BID 08/24/17 Cholecalciferol (Vitamin D3) 1,000 unit PO AM 11/22/18 [Vitamin D3] Losartan Potassium [Cozaar] 100 mg PO HS 11/22/18 Family Disease History - Family Disease History Family History: Denies (no known cmp) Review of Systems - Review of Systems Constitutional: denies: Chills, Fever Eyes: denies: Eye Pain HENT: denies: Nasal Congestion Neck: denies: Stiffness Cardiovascular: denies: Palpitations Respiratory: denies: Orthopnea, PND Gastrointestinal: denies: Diarrhea, Rectal Bleeding Genitourinary: denies: Burning, Hematuria Musculoskeletal: denies: Muscle Pain Integumentary: denies: Rash Neurological: denies: Numbness, Seizure, Syncope Endocrine: denies: Excessive Sweating Hematology/Lymphatic: denies: Excessive Bleeding Vital Signs Period Temp Pulse Resp BP Sys/Peacock Pulse Ox Last 24 Hr 97.6 F-97.7 F 53-88 13-18 109-180/49-86 95-99 Constitutional: Yes: Well Nourished, No Distress Eyes: No: Sclera Icterus HENT: No: Nasal Congestion Neck: No: Decreased ROM Respiratory: Yes: CTA Bilaterally. No: Accessory Muscle Use, Rales, Wheezes Gastrointestinal: Yes: Normal Bowel Sounds. No: Distention, Hepatomegaly, Palpable Mass, Tenderness Cardiovascular: Yes: Regular Rate and Rhythm JVD: No Carotid Bruit: No PMI: Non-Displaced Heart Sounds: Yes: S1, S2. No: Gallop Murmur: No: Systolic Murmur, Diastolic Murmur Musculoskeletal: Yes: Other (No kyphosis) Extremities: No: Cold, Cyanosis Edema: No Peripheral Pulses: 2+ Left Carotid, 2+ Right Carotid, 2+ Left Doralis Pedis, 2+ Right Dorsalis Pedis Integumentary: No: Jaundice Neurological: Yes: Alert, Oriented (x3) Psychiatric: No: Agitated Laboratory Last Values WBC 6.1 K/mm3 (4.0-10.0) 11/23/18 06:46 RBC 3.97 M/mm3 (3.60-5.2) 11/23/18 06:46 Hgb 11.7 GM/dL (10.7-15.3) 11/23/18 06:46 Hct 34.3 % (32.4-45.2) 11/23/18 06:46 MCV 86.4 fl (80-96) 11/23/18 06:46 MCH 29.4 pg (25.7-33.7) 11/23/18 06:46 MCHC 34.1 g/dl (32.0-36.0) 11/23/18 06:46 RDW 14.5 % (11.6-15.6) 11/23/18 06:46 Plt Count 248 K/MM3 (134-434) 11/23/18 06:46 MPV 8.3 fl (7.5-11.1) 11/23/18 06:46 Absolute Neuts (auto) 3.1 K/mm3 (1.5-8.0) 11/23/18 06:46 Neutrophils % 50.8 % (42.8-82.8) D 11/23/18 06:46 Lymphocytes % 34.8 % (8-40) D 11/23/18 06:46 Monocytes % 10.8 % (3.8-10.2) H 11/23/18 06:46 Eosinophils % 3.2 % (0-4.5) 11/23/18 06:46 Basophils % 0.4 % (0-2.0) 11/23/18 06:46 Nucleated RBC % 0 % (0-0) 11/23/18 06:46 PT with INR 16.50 SEC (9.7-13.0) H 11/22/18 14:46 INR 1.39 (0.83-1.09) H 11/22/18 14:46 Sodium 142 mmol/L (136-145) 11/23/18 06:46 Potassium 3.8 mmol/L (3.5-5.1) 11/23/18 06:46 Chloride 109 mmol/L (98-107) H 11/23/18 06:46 Carbon Dioxide 25 mmol/L (21-32) 11/23/18 06:46 Anion Gap 8 MMOL/L (8-16) 11/23/18 06:46 BUN 23.1 mg/dL (7-18) H 11/23/18 06:46 Creatinine 1.3 mg/dL (0.55-1.3) 11/23/18 06:46 Est GFR (CKD-EPI)AfAm 42.72 11/23/18 06:46 Est GFR (CKD-EPI)NonAf 36.86 11/23/18 06:46 POC Glucometer 118 UNITS (80-120) 11/23/18 11:26 Random Glucose 95 mg/dL (74-106) 11/23/18 06:46 Calcium 9.2 mg/dL (8.5-10.1) 11/23/18 06:46 Magnesium 2.3 mg/dL (1.8-2.4) 11/23/18 06:46 Total Bilirubin 0.4 mg/dL (0.2-1) 11/22/18 14:46 AST 22 U/L (15-37) 11/22/18 14:46 ALT 21 U/L (13-61) 11/22/18 14:46 Alkaline Phosphatase 73 U/L (45-117) 11/22/18 14:46 Creatine Kinase 264 U/L (26-192) H 11/22/18 14:46 Creatine Kinase Index 0.9 % (0.0-5.0) 11/22/18 14:46 CK-MB (CK-2) 2.5 ng/mL (0.5-3.6) 11/22/18 14:46 Troponin I < 0.02 ng/ml (0.00-0.05) 11/22/18 14:46 Total Protein 7.7 g/dl (6.4-8.2) 11/22/18 14:46 Albumin 4.2 g/dl (3.4-5.0) 11/22/18 14:46 Triglycerides 140 mg/dL (0-150) 11/23/18 06:46 Cholesterol 242 mg/dL (50-200) H 11/23/18 06:46 Total LDL Cholesterol 157 mg/dL (5-100) H 11/23/18 06:46 HDL Cholesterol 56 mg/dL (40-60) 11/23/18 06:46 Urine Color Yellow 11/22/18 17:34 Urine Appearance Clear 11/22/18 17:34 Urine pH 6.0 (5.0-8.0) 11/22/18 17:34 Ur Specific Walters 1.008 (1.010-1.035) L 11/22/18 17:34 Urine Protein Negative (NEGATIVE) 11/22/18 17:34 Urine Glucose (UA) Negative (NEGATIVE) 11/22/18 17:34 Urine Ketones Negative (NEGATIVE) 11/22/18 17:34 Urine Blood Negative (NEGATIVE) 11/22/18 17:34 Urine Nitrite Negative (NEGATIVE) 11/22/18 17:34 Urine Bilirubin Negative (NEGATIVE) 11/22/18 17:34 Urine Urobilinogen 0.2 mg/dL (0.2-1.0) 11/22/18 17:34 Ur Leukocyte Esterase Negative (NEGATIVE) 11/22/18 17:34 Blood Type B POSITIVE 11/22/18 17:13 Antibody Screen Negative 11/22/18 14:46 Assessment/Plan echo 08/06: nl lv/rv. impaired relaxation. rvsp 34. echo 11/2016: nl lv/rv, mild lae, mild mr, mod tr, rvsp 30-40 CTA 11/2016: multiple filling defects, PE noted in both rt and left upper and lower pulmonary arteries. RLL consolidation/atelectasis with associated effusion. MIBI 10/05: no ischemia or scar, hyperdynamic EF EKG: sinus, nl intervals, no ischemic changes echo 11/2018 nl LV/RV function, mildly dialted LA, mild MAC, mild TR tele: sinus, PVCs a/p: 88 f hx htn, hl, recent bilateral PE's in november (on eliquis), cva with residual rt sided weakness, (bline cr 1.3), COPD, obesity, niddm p/w weakness, lightheadedness weakness, possible CVA - neuro consulted, MRI head pending - monitoring on tele - carotid doppler showed no hemodynamically significant stenosis with >50% narrowing on grayscale images - further imaging per primary, neuro - echo here unremarkable - BP targets per neuro PE -cont AC with eliquis - echo stable - dose of eliquis was decreased to 2.5 mg BID in setting of MICHAEL, if renal function stable would resume home dose of eliquis 5 mg BID chronic diast chf: - appears clinically euvolemic HTN: - holding BP meds currently, BP target per neuro CKD: - prior creat range here 1.2-1.5, initially here 1.6 - currently renal fxn stable at baseline h/o CVA - on AC for PE - was not on statin as outpatient for prior intolerance - monitor on statin here
[2018-11-23] MEDS ORDERED: ATORVASTATIN CA 80 MG TABLET (FP) PO SCH (22:00)
[2018-11-24 06:59] LABS: BASO % 0.7 % (0-2.0); EOS % 4.9 % (0-4.5); HEMATOCRIT 33.6 % (32.4-45.2); HEMOGLOBIN 11.6 GM/dL (10.7-15.3); LYMPH % 47.4 % (8-40); MCH 29.7 pg (25.7-33.7); MCHC 34.4 g/dl (32.0-36.0); MEAN CELL VOLUME 86.4 fl (80-96); MEAN PLT VOLUME 8.6 fl (7.5-11.1); MONO % 9.7 % (3.8-10.2); NEUT % 37.3 % (42.8-82.8); PLATELET COUNT 242 K/MM3 (134-434); RDW 14.6 % (11.6-15.6); WHITE BLOOD COUNT 5.6 K/mm3 (4.0-10.0)
[2018-11-24 07:39] LABS: ALBUMIN 3.4 g/dl (3.4-5.0); BILIRUBIN,TOTAL 0.9 mg/dL (0.2-1); BLOOD UREA NITROGEN 28.8 mg/dL (7-18); CALCIUM 8.8 mg/dL (8.5-10.1); CREATININE 1.4 mg/dL (0.55-1.3); POTASSIUM 4.1 mmol/L (3.5-5.1); TOT PROT 6.8 g/dl (6.4-8.2)
[2018-11-24] MEDS: APIXABAN 2.5 MG TABLET PO SCH (10:28)
[2018-11-24] MEDS: ASPIRIN 81 MG CHEWABLE TABLETS PO SCH (10:28)
--- NOTE | 2018-11-24 12:30 | PN ---
Progress Note (short form) - Note Progress Note: s: no chest pain, palps, dizziness, dyspnea Current Medications Apixaban (Eliquis -) 2.5 mg PO BID [facility] Last Admin: 11/24/18 10:28 Dose: 2.5 mg Aspirin (Asa -) 81 mg PO DAILY [facility] Last Admin: 11/24/18 10:28 Dose: 81 mg Vital Signs Period Temp Pulse Resp BP Sys/Peacock Pulse Ox Last 24 Hr 97.2 F-97.6 F 51-71 14-18 123-161/55-91 98-98 Constitutional: Yes: Well Nourished, No Distress Eyes: No: Sclera Icterus HENT: No: Nasal Congestion Neck: No: Decreased ROM Respiratory: Yes: CTA Bilaterally. No: Accessory Muscle Use, Rales, Wheezes Gastrointestinal: Yes: Normal Bowel Sounds. No: Distention, Hepatomegaly, Palpable Mass, Tenderness Cardiovascular: Yes: Regular Rate and Rhythm JVD: No Carotid Bruit: No PMI: Non-Displaced Heart Sounds: Yes: S1, S2. No: Gallop Murmur: No: Systolic Murmur, Diastolic Murmur Musculoskeletal: Yes: Other (No kyphosis) Extremities: No: Cold, Cyanosis Edema: No Peripheral Pulses: 2+ Left Carotid, 2+ Right Carotid, 2+ Left Doralis Pedis, 2+ Right Dorsalis Pedis Integumentary: No: Jaundice Neurological: Yes: Alert, Oriented (x3) Psychiatric: No: Agitated Assessment/Plan echo 08/06: nl lv/rv. impaired relaxation. rvsp 34. echo 11/2016: nl lv/rv, mild lae, mild mr, mod tr, rvsp 30-40 CTA 11/2016: multiple filling defects, PE noted in both rt and left upper and lower pulmonary arteries. RLL consolidation/atelectasis with associated effusion. MIBI 10/05: no ischemia or scar, hyperdynamic EF EKG: sinus, nl intervals, no ischemic changes echo 11/2018 nl LV/RV function, mildly dialted LA, mild MAC, mild TR tele: sinus a/p: 88 f hx htn, hl, recent bilateral PE's in november (on eliquis), cva with residual rt sided weakness, (bline cr 1.3), COPD, obesity, niddm p/w weakness, lightheadedness weakness, possible CVA - neuro consulted, MRI head no acute infarct - monitoring on tele - carotid doppler showed no hemodynamically significant stenosis with >50% narrowing on grayscale images - further imaging per primary, neuro - echo here unremarkable - BP targets per neuro PE -cont AC with eliquis - echo stable - dose of eliquis was decreased to 2.5 mg BID in setting of MICHAEL. If renal function stable would resume home dose of eliquis 5 mg BID chronic diast chf: - appears clinically euvolemic HTN: - holding BP meds currently, BP target per neuro CKD: - prior creat range here 1.2-1.5, initially here 1.6 - currently renal fxn stable at baseline h/o CVA - on AC for PE - was not on statin as outpatient for prior intolerance - discussed with patient , has tried multiple statins, refuses here due to history of muscle cramps. atorvastatin dc'ed
--- NOTE | 2018-11-24 15:34 | PN ---
Progress Note (short form) - Note Progress Note: pt seen/ examined sitting in chair. all f/u noted statins d/uriel as pt refuses denies cp/sob. feels ok walked a little with PT Vital Signs Temp 97.2 F L 11/24/18 06:00 Pulse 51 L 11/24/18 06:00 Resp 18 11/24/18 06:00 BP 154/60 11/24/18 06:00 Pulse Ox 98 11/23/18 21:00 Intake & Output 11/23/18 11/24/18 11/24/18 23:59 11:59 23:59 Intake Total 444 200 Output Total 1 Balance 443 200 Weight 171 lb 4.8 oz 176 lb Intake: IV 84 Normal Saline - 1,000 ml 84 @ 42 mls/hr IV ASDIR TERI Rx#:[id number] Oral 360 200 Output: Urine 1 Void 1 Other: Voiding Method Toilet Toilet # Unmeasured Voids Void 1 1 2 Bowel Movement No Height 5 ft 8 in Body Mass Index (BMI) 26.0 Weight Measurement Method [facility] Active Medications Apixaban (Eliquis -) 5 mg PO BID TERI Aspirin (Asa -) 81 mg PO DAILY [facility] Last Admin: 11/24/18 10:28 Dose: 81 mg CBC, BMP 11/24/18 05:50 11/24/18 05:50 u/s carotid - noted Physical Exam Awake/ comfortable heent- no jvd Lungs- clear cvs- s1, s2 rrr abd - soft ext- no edema. Neuro- aox3 moves all extremities a/p cva cad h/o PE h/o cva a/p Discussed MRi Brain noted neurology consult noted / appreciated MRA carotid artery Should benefit from short-term rehabilitation will follow Problem List - Problems (1) CVA (cerebral vascular accident) Code(s): I63.9 - CEREBRAL INFARCTION, UNSPECIFIED (2) CKD (chronic kidney disease) Code(s): N18.9 - CHRONIC KIDNEY DISEASE, UNSPECIFIED (3) Diabetes Code(s): E11.9 - TYPE 2 DIABETES MELLITUS WITHOUT COMPLICATIONS (4) Hypertension Code(s): I10 - ESSENTIAL (PRIMARY) HYPERTENSION
[2018-11-24] MEDS: APIXABAN 5 MG TABLET PO SCH (21:53)
--- NOTE | 2018-11-25 09:06 | DS ---
Physical Examination Vital Signs: Vital Signs Temperature 97.5 F L 11/25/18 06:47 Pulse Rate 61 11/25/18 06:47 Respiratory Rate 21 H 11/25/18 06:47 Blood Pressure 151/53 L 11/25/18 06:47 O2 Sat by Pulse Oximetry (%) 98 11/24/18 21:00 Findings/Remarks: patient seen and examined sitting in chair Comfortable----but little dizzy today Blood pressure elevated denies chest pain or shortness of breath Walks with cane---Small distances Constitutional: Yes: No Distress, Calm. No: Mild Distress Eyes: Yes: Conjunctiva Clear Neck: Yes: Supple Cardiovascular: Yes: Regular Rate and Rhythm Respiratory: Yes: CTA Bilaterally Gastrointestinal: Yes: Soft Edema: No Neurological: Yes: Alert (mild right-sided weakness) Psychiatric: Yes: Alert Labs: CBC, BMP 11/24/18 05:50 11/24/18 05:50 Discharge Summary Reason For Visit: CVA Current Active Problems CVA (cerebral vascular accident) (Acute) Hospital Course: admitted for CVA Neurology followed Echocardiogram also done Now stable Should benefit from short-term rehabilitation Discussed with the patient in detail Patient agree with same Discussed different nursing homes in the area Patient lives close to [facility]-----and I also go there She agreeable--- for rehabilitation--- [facility] will discuss with pillowcase turner Will discharge when bed available Will follow discussed with nursing staff Also Condition: Stable - Instructions Disposition: [facility]WAY FACILITY - Home Medications Comprehensive Discharge Medication List: Ambulatory Orders Aspirin [ASA -] 81 mg PO AM 08/24/17 Cholecalciferol (Vitamin D3) [Vitamin D3] 1,000 unit PO DAILY 08/24/17 Nifedipine [Procardia Xl] 30 mg PO AM 08/24/17 Cholecalciferol (Vitamin D3) [Vitamin D3] 1,000 unit PO AM 11/22/18 Apixaban [Eliquis -] 2.5 mg PO BID tablet 11/25/18 MiraLAX--- one packet daily
--- NOTE | 2018-11-25 09:47 | PN ---
Progress Note (short form) - Note Progress Note: s: no chest pain, palps, dizziness, dyspnea Current Medications Apixaban (Eliquis -) 5 mg PO BID [facility] Last Admin: 11/24/18 21:53 Dose: 5 mg Aspirin (Asa -) 81 mg PO DAILY [facility] Last Admin: 11/24/18 10:28 Dose: 81 mg Nifedipine (Procardia Xl -) 30 mg PO DAILY [facility] Vital Signs Period Temp Pulse Resp BP Sys/Peacock Pulse Ox Last 24 Hr 97.2 F-97.7 F 51-69 14-21 106-151/51-69 98 Constitutional: Yes: Well Nourished, No Distress Eyes: No: Sclera Icterus HENT: No: Nasal Congestion Neck: No: Decreased ROM Respiratory: Yes: CTA Bilaterally. No: Accessory Muscle Use, Rales, Wheezes Gastrointestinal: Yes: Normal Bowel Sounds. No: Distention, Hepatomegaly, Palpable Mass, Tenderness Cardiovascular: Yes: Regular Rate and Rhythm JVD: No Carotid Bruit: No PMI: Non-Displaced Heart Sounds: Yes: S1, S2. No: Gallop Murmur: No: Systolic Murmur, Diastolic Murmur Musculoskeletal: Yes: Other (No kyphosis) Extremities: No: Cold, Cyanosis Edema: No Peripheral Pulses: 2+ Left Carotid, 2+ Right Carotid, 2+ Left Doralis Pedis, 2+ Right Dorsalis Pedis Integumentary: No: Jaundice Neurological: Yes: Alert, Oriented (x3) Psychiatric: No: Agitated Assessment/Plan echo 08/06: nl lv/rv. impaired relaxation. rvsp 34. echo 11/2016: nl lv/rv, mild lae, mild mr, mod tr, rvsp 30-40 CTA 11/2016: multiple filling defects, PE noted in both rt and left upper and lower pulmonary arteries. RLL consolidation/atelectasis with associated effusion. MIBI 10/05: no ischemia or scar, hyperdynamic EF EKG: sinus, nl intervals, no ischemic changes echo 11/2018 nl LV/RV function, mildly dialted LA, mild MAC, mild TR tele: sinus a/p: 88 f hx htn, hl, recent bilateral PE's in november (on eliquis), cva with residual rt sided weakness, (bline cr 1.3), COPD, obesity, niddm p/w weakness, lightheadedness weakness, possible CVA - neuro consulted, MRI head no acute infarct - monitoring on tele - carotid doppler showed no hemodynamically significant stenosis with >50% narrowing on grayscale images - no stenosis on MRA neck - echo here unremarkable - BP targets per neuro - restarting meds today PE -cont AC with eliquis - echo stable - resumed home dose of eliquis 5 mg BID chronic diast chf: - appears clinically euvolemic HTN: - resumed nifedipine, monitor BP CKD: - prior creat range here 1.2-1.5, initially here 1.6 - currently renal fxn stable at baseline h/o CVA - on AC for PE - was not on statin as outpatient for prior intolerance - discussed with patient , has tried multiple statins, refuses here due to history of muscle cramps. atorvastatin dc'ed
[2018-11-25] MEDS: APIXABAN 5 MG TABLET PO SCH ×2 (10:15→21:27)
[2018-11-25] MEDS: ASPIRIN 81 MG CHEWABLE TABLETS PO SCH (10:15)
[2018-11-25] MEDS: NIFEdipine E.R. 30 MG TABLET (FP) PO SCH (10:15)
[2018-11-25] MEDS: POLYETHYLENE GLYCOL 3350 119 GM BTL PO SCH (11:55)
[2018-11-25] MEDS: DOCUSATE SODIUM 100 MG CAPSULE (FP) PO SCH (21:27)
--- NOTE | 2018-11-26 09:46 | PN ---
Progress Note (short form) - Note Progress Note: pt seen/ examined comfortable bp high no new issues continue to feel right side weakness Vital Signs Temp 98.6 F 11/25/18 17:35 Pulse 58 L 11/26/18 01:55 Resp 18 11/26/18 01:55 BP 126/54 L 11/26/18 05:00 Pulse Ox 98 11/25/18 21:00 Intake & Output 11/25/18 11/25/18 11/26/18 11:59 23:59 11:59 Intake Total 300 240 Balance 300 240 Weight 172 lb 8 oz Intake: Oral 300 240 Other: Voiding Method Toilet Toilet # Unmeasured Voids Void 1 1 1 Weight Measurement Method Built in [facility] Active Medications Apixaban (Eliquis -) 5 mg PO BID [facility] Last Admin: 11/25/18 21:27 Dose: 5 mg Aspirin (Asa -) 81 mg PO DAILY [facility] Last Admin: 11/25/18 10:15 Dose: 81 mg Docusate Sodium (Colace -) 100 mg PO BID [facility] Last Admin: 11/25/18 21:27 Dose: 100 mg Losartan Potassium (Cozaar -) 50 mg PO DAILY [facility] Nifedipine (Procardia Xl -) 30 mg PO DAILY [facility] Last Admin: 11/25/18 10:15 Dose: 30 mg Polyethylene Glycol (Miralax (For Daily Use) -) 17 gm PO DAILY [facility] Last Admin: 11/25/18 11:55 Dose: 17 gm CBC, BMP 11/24/18 05:50 11/24/18 05:50 Physical Exam Awake/ comfortable heent- no jvd Lungs- clear cvs- s1, s2 rrr abd - soft ext- no edema. Neuro- aox3 moves all extremities a/p cva cad h/o PE h/o cva clinically stable blood pressure is still high add losartan Awaiting discharge to rehabilitation place Will follow We will order labs for tomorrow--- in case----she stays in hospital Continue physical therapy Neurology to follow Problem List - Problems (1) CVA (cerebral vascular accident) Code(s): I63.9 - CEREBRAL INFARCTION, UNSPECIFIED (2) CKD (chronic kidney disease) Code(s): N18.9 - CHRONIC KIDNEY DISEASE, UNSPECIFIED (3) Diabetes Code(s): E11.9 - TYPE 2 DIABETES MELLITUS WITHOUT COMPLICATIONS (4) Hypertension Code(s): I10 - ESSENTIAL (PRIMARY) HYPERTENSION
[2018-11-26] MEDS: DOCUSATE SODIUM 100 MG CAPSULE (FP) PO SCH ×2 (10:00→11:10)
[2018-11-26] MEDS: ASPIRIN 81 MG CHEWABLE TABLETS PO SCH (10:00)
[2018-11-26] MEDS: NIFEdipine E.R. 30 MG TABLET (FP) PO SCH (10:00)
[2018-11-26] MEDS: APIXABAN 5 MG TABLET PO SCH (10:00)
[2018-11-26] MEDS ORDERED: LOSARTAN POTASSIUM 50 MG TABLET (FP) PO SCH (10:00)
[2018-11-26] MEDS: POLYETHYLENE GLYCOL 3350 119 GM BTL PO SCH (10:01)
--- NOTE | 2018-11-26 10:24 | PN ---
Progress Note (short form) - Note Progress Note: s: no chest pain, palps, dizziness, dyspnea Current Medications Generic Name Dose Route Start Last Admin Trade Name Armin PRN Reason Stop Dose Admin Apixaban 5 mg 11/24/18 22:00 11/26/18 10:00 Eliquis - PO 5 mg BID TERI Administration Aspirin 81 mg 11/23/18 10:00 11/26/18 10:00 Asa - PO 81 mg DAILY TERI Administration Docusate Sodium 100 mg 11/25/18 22:00 11/25/18 21:27 Colace - PO 100 mg BID TERI Administration Losartan Potassium 50 mg 11/26/18 10:00 Cozaar - PO DAILY TER[facility] Nifedipine 30 mg 11/25/18 10:00 11/26/18 10:00 Procardia Xl - PO 30 mg DAILY TERI Administration Polyethylene Glycol 17 gm 11/25/18 11:30 11/26/18 10:01 Miralax (For Daily Use) - PO 17 gm DAILY TERI Administration Vital Signs Period Temp Pulse Resp BP Sys/Peacock Pulse Ox Last 24 Hr 98.6 F 56-67 14-18 126-175/54-76 98 Constitutional: Yes: Well Nourished, No Distress Eyes: No: Sclera Icterus Respiratory: Yes: CTA Bilaterally. No: Accessory Muscle Use, Rales, Wheezes Gastrointestinal: Yes: Normal Bowel Sounds. No: Distention, Hepatomegaly, Palpable Mass, Tenderness Cardiovascular: Yes: Regular Rate and Rhythm JVD: No Heart Sounds: Yes: S1, S2. No: Gallop Murmur: No: Systolic Murmur, Diastolic Murmur Extremities: No: Cold, Cyanosis Edema: No Peripheral Pulses: 2+ Left Carotid, 2+ Right Carotid, 2+ Left Doralis Pedis, 2+ Right Dorsalis Pedis Integumentary: No: Jaundice Neurological: Yes: Alert, Oriented (x3) Psychiatric: No: Agitated CBC, BMP 11/24/18 05:50 11/24/18 05:50 Assessment/Plan echo 08/06: nl lv/rv. impaired relaxation. rvsp 34. echo 11/2016: nl lv/rv, mild lae, mild mr, mod tr, rvsp 30-40 CTA 11/2016: multiple filling defects, PE noted in both rt and left upper and lower pulmonary arteries. RLL consolidation/atelectasis with associated effusion. MIBI 10/05: no ischemia or scar, hyperdynamic EF EKG: sinus, nl intervals, no ischemic changes echo 11/2018 nl LV/RV function, mildly dialted LA, mild MAC, mild TR tele: sinus, artifact a/p: 88 f hx htn, hl, recent bilateral PE's in november (on eliquis), cva with residual rt sided weakness, (bline cr 1.3), COPD, obesity, niddm p/w weakness, lightheadedness weakness, possible CVA - neuro consulted, MRI head no acute infarct - monitoring on tele benign - carotid doppler showed no hemodynamically significant stenosis with >50% narrowing on grayscale images - no stenosis on MRA neck - echo here unremarkable PE -cont AC with eliquis - echo stable - resumed home dose of eliquis 5 mg BID chronic diast chf: - appears clinically euvolemic HTN: - resumed nifedipine CKD: - prior creat range here 1.2-1.5, initially here 1.6 - currently renal fxn stable at baseline h/o CVA - on AC for PE - was not on statin as outpatient for prior intolerance - discussed with patient , has tried multiple statins, refuses here due to history of muscle cramps. atorvastatin dc'ed cardiac lópez stable
[2018-11-26 11:04] VITALS: BP 128/67; PULSE 57; TEMP 97.7
== END 2018-11-26 14:32 | DRG 57 ==
LOC: JER 13:59 → UNDOADMIN 14:53 → JERBED 14:53 → J2W 11-23 12:42 → JERBED 11-23 12:42 → J2W 11-26 09:46 → JERBED 11-26 09:46
PROVIDERS: ADMIT Internal Medicine; ATTEND Internal Medicine
DX: I69.393 Ataxia following cerebral infarction (principal); I69.351 Hemiplegia and hemiparesis following cerebral infarction affecting right dominant side; I50.32 Chronic diastolic (congestive) heart failure; I13.0 Hypertensive heart and chronic kidney disease with heart failure and stage 1 through stage 4 chronic kidney disease, or unspecified chronic kidney disease; G25.9 Extrapyramidal and movement disorder, unspecified; N17.9 Acute kidney failure, unspecified; R53.1 Weakness; R42 Dizziness and giddiness; J44.9 Chronic obstructive pulmonary disease, unspecified; Z86.711 Personal history of pulmonary embolism; E11.22 Type 2 diabetes mellitus with diabetic chronic kidney disease; N18.9 Chronic kidney disease, unspecified; E78.5 Hyperlipidemia, unspecified; Z79.84 Long term (current) use of oral hypoglycemic drugs; Z79.01 Long term (current) use of anticoagulants; I25.10 Atherosclerotic heart disease of native coronary artery without angina pectoris; E66.9 Obesity, unspecified; Z68.26 Body mass index [BMI] 26.0-26.9, adult
CPT/HCPCS: 36415; 70450-TC; 70547-TC; 70551-TC; 80048; 80053; 80061; 81003; 82465; 82550; 82553; 82962; 83036; 83718; 83721; 83735; 84443; 84478; 84484; 85025; 85610; 86850; 86900; 86901; 93005; 93010; 93306-TC; 93880-TC; 97116-GP; 97161-GP; 99285-25; J7030

== ENCOUNTER 2018-12-08 07:58 | Emergency (ER) | payer OTHER ==
[2018-12-08 08:06] VITALS: PULSE 68; BMI 27.3
--- NOTE | 2018-12-08 08:33 | PDOC ---
Attending Attestation - Resident Resident Name: Daniel Bryan - ED Attending Attestation I have performed the following: I have examined & evaluated the patient, The case was reviewed & discussed with the resident, I agree w/resident's findings & plan, Exceptions are as noted
[2018-12-08] MEDS ORDERED: SODIUM CHLORIDE 1,000 ML IV STA (08:35)
[2018-12-08 09:24] LABS: BASO % 1.5 % (0-2.0); EOS % 3.7 % (0-4.5); HEMATOCRIT 33.5 % (32.4-45.2); HEMOGLOBIN 11.3 GM/dL (10.7-15.3); LYMPH % 38.7 % (8-40); MCH 29.2 pg (25.7-33.7); MCHC 33.8 g/dl (32.0-36.0); MEAN CELL VOLUME 86.3 fl (80-96); MEAN PLT VOLUME 8.4 fl (7.5-11.1); MONO % 9.3 % (3.8-10.2); NEUT % 46.8 % (42.8-82.8); PLATELET COUNT 254 K/MM3 (134-434); RBC 3.88 M/mm3 (3.60-5.2); RDW 14.3 % (11.6-15.6); WHITE BLOOD COUNT 4.8 K/mm3 (4.0-10.0)
[2018-12-08 09:38] LABS: INR 1.19 (0.83-1.09); PROTHROMBIN TIME (PATIENT) 14.1 SEC (9.7-13.0)
--- NOTE | 2018-12-08 09:52 | PDOC ---
History of Present Illness - General Chief Complaint: Lightheaded Stated Complaint: HEADACHE,WEAKNESS Time Seen by Provider: 12/08/18 08:07 - History of Present Illness Initial Comments: 12/08/18 09:43 Pam Mcmillan is an 88F with PMH CVA, HTN, DM presenting with 3 days diarrhea with dizziness and chills today. Has had 3 days of constant liquid stools, non-bloody, has watery diarrhea with urination. Denies abd pain, fever, denies foul odors in stool. No urinary sx. No recent Abx, was hospitalized for CVA 16 days ago, discharged home with home PT. This morning feels like room spinning with chills, nausea with dry heaves, denies LOC or fall. Denies chest pain, SOB, weakness, changes to vision/hearing. Last took HTN meds hydralazine and losartan 12AM today, next dose at 10AM. Denies sick contacts, bad foods ingested. Past History - Past Medical History Allergies/Adverse Reactions: Allergies Allergy/AdvReac Type Severity Reaction Status Date / Time Sulfa (Sulfonamide Allergy Intermediate Hives Verified 12/08/18 08:03 Antibiotics) peanut Allergy Unknown Verified 12/08/18 08:03 Home Medications: Ambulatory Orders Aspirin [ASA -] 81 mg PO AM 08/24/17 Cholecalciferol (Vitamin D3) [Vitamin D3] 1,000 unit PO DAILY 08/24/17 Nifedipine [Procardia Xl] 30 mg PO AM 08/24/17 Apixaban [Eliquis -] 5 mg PO BID tablet 11/26/18 Hydralazine HCl 50 mg PO DAILY 12/08/18 Losartan Potassium [Cozaar -] 100 mg PO DAILY 12/08/18 Polyethylene Glycol 3350 [Miralax 119 gm Btl -] 17 gm PO PRN 12/08/18 Anemia: No Asthma: No Cancer: No Cardiac Disorders: Yes CVA: Yes (2000, mild right sided weakness) COPD: No Diabetes: Yes HTN: Yes Hypercholesterolemia: Yes - Surgical History Abdominal Surgery: No Orthopedic Surgery: Yes (left knee surgery) - Immunization History Immunization Up to Date: Yes - Suicide/Smoking/Psychosocial Hx Smoking Status: No Smoking History: Never smoked Years of Tobacco Use: 0 Have you smoked in the past 12 months: No Number of Cigarettes Smoked Daily: 0 Hx Alcohol Use: No Drug/Substance Use Hx: No Substance Use Type: None Hx Substance Use Treatment: No Review of Systems - Review of Systems Constitutional: Yes: Chills. No: Fever, Loss of Appetite HEENTM: No: Blurred Vision, Double Vision, Hearing Loss Respiratory: No: Cough, Orthopnea, Shortness of Breath Cardiac (ROS): No: Chest Pain, Edema, Palpitations, Syncope ABD/GI: Yes: Diarrhea, Nausea. No: Constipated, Vomiting : No: Burning, Dysuria, Discharge, Frequency, Flank Pain Musculoskeletal: No: Back Pain, Muscle Pain Integumentary: No: Symptoms Reported Neurological: Yes: Dizziness. No: Numbness, Paresthesia, Unsteady Gait Endocrine: No: Symptoms Reported Hematologic/Lymphatic: No: Symptoms Reported All Other Systems: Reviewed and Negative *Physical Exam - Vital Signs Last Vital Signs Temp Pulse Resp BP Pulse Ox 97.4 F L 68 18 172/70 H 99 12/08/18 08:01 12/08/18 08:01 12/08/18 08:01 12/08/18 08:01 12/08/18 08:01 - Physical Exam General Appearance: Yes: Nourished, Appropriately Dressed. No: Apparent Distress HEENT: positive: EOMI, JANEE, Normal ENT Inspection Neck: positive: Trachea midline, Normal Thyroid, Supple. negative: Lymphadenopathy (R), Lymphadenopathy (L) Respiratory/Chest: positive: Lungs Clear, Normal Breath Sounds. negative: Chest Tender, Respiratory Distress Cardiovascular: positive: Regular Rhythm, Regular Rate. negative: Edema, Murmur Gastrointestinal/Abdominal: positive: Normal Bowel Sounds, Flat, Soft. negative : Tender, Organomegaly Musculoskeletal: positive: Normal Inspection. negative: CVA Tenderness Extremity: positive: Normal Capillary Refill, Normal Inspection, Normal Range of Motion Integumentary: positive: Normal Color, Dry, Warm Neurologic: positive: Fully Oriented, Alert, Normal Mood/Affect, Normal Response , Motor Strength /5 ED Treatment Course - LABORATORY CBC & Chemistry Diagram: 12/08/18 08:57 12/08/18 11:14 - ADDITIONAL ORDERS Additional order review: Laboratory Results 12/08/18 08:57 PT with INR 14.10 H INR 1.19 H 12/08/18 08:57 RBC 3.88 MCV 86.3 MCHC 33.8 RDW 14.3 MPV 8.4 Neutrophils % 46.8 D Lymphocytes % 38.7 Monocytes % 9.3 Eosinophils % 3.7 Basophils % 1.5 - Medications Given in the ED: ED Medications Discontinued Medications Generic Name Dose Route Start Last Admin Trade Name Armin PRN Reason Stop Dose Admin Sodium Chloride 1,000 mls @ 1,000 mls/hr 12/08/18 08:35 12/08/18 09:34 Normal Saline - IV 12/08/18 09:34 1,000 mls/hr ASDIR STA Administration Medical Decision Making - Medical Decision Making 12/08/18 08:30 Pam Mcmillan is an 88F with PMH CVA, HTN, DM presenting with 3 days diarrhea with dizziness and chills today. Patient afebrile with 3 day history of diarrhea here with dizziness and nausea with chills. Lower concern for infection given no immunocompromise, no fever. No abd hogue concerning for abd pathology. More likely dehydration 2/2 diarrhea give dizziness with no chest pain or cardiac history. CMP CBC Coags UA/UC 1L NS bolus Cdiff culture is patient gives stool. 12/08/18 13:00 Labs do not show elevated WBC, UA clear evidence of infection, and Cr 1.5 but at baseline. Patient walked to bathroom unassisted, unable to give stool sample as stool is not liquid or solid, minor sludge that is absorbed by tissue paper. Patient reports still feeling dizzy, but further elucidation of sx reveals some anxiety component, concerned about sx related to another stroke, although patient denies any worries or life stressors upon direct questioning about fears. Patient does not show any clear signs of an acute process that needs emergent care at this time, advised to go home and f/u with PCP and reassured that she likely has a GI virus that will resolve in a few days with rest and hydration. D/c home. *DC/Admit/Observation/Transfer Diagnosis at time of Disposition: Dizziness Diarrhea Qualifiers: Diarrhea type: unspecified type Qualified Code(s): R19.7 - Diarrhea, unspecified - Discharge Dispostion Disposition: HOME Condition at time of disposition: Improved Decision to Admit order: No - Referrals Referrals: Neda Robertson MD [Primary Care Provider] - - Patient Instructions Printed Discharge Instructions: Diarrhea Additional Instructions: Today you were evaluated for diarrhea and dizziness. We checked you blood for signs of infection or problems with electrolytes such as sodium and potassium because you have been having diarrhea. You do not have an infection or fever, and your electrolyte levels are good. You urine does not show signs of a urinary tract infection. You most likely caught a stomach bug such as a virus that will resolve in the next few days. Keep hydrated by drinking a lot of fluids, and please see your doctor in the next 3 days for further care. If you have fevers, nausea, vomiting, uncontrollable diarrhea, worsening dizziness, palpitations, chest pain, shortness or breath, or any other new or concerning symptoms, please return to the emergency room. - Post Discharge Activity
--- NOTE | 2018-12-08 09:57 | PDOC ---
Documentation entered by Kira Tabor SCRIBE, acting as scribe for Delmy Casas DO. Delmy Casas DO: This documentation has been prepared by the meraibe, Kira Tabor SCRIBE, under my direction and personally reviewed by me in its entirety. I confirm that the documentation accurately reflects all work, treatment, procedures, and medical decision making performed by me. Attending Attestation - Resident Resident Name: Daniel Bryan - ED Attending Attestation I have performed the following: I have examined & evaluated the patient, The case was reviewed & discussed with the resident, I agree w/resident's findings & plan, Exceptions are as noted - HPI HPI: 12/08/18 09:59 The patient is an 88-year-old female, with past medical of PE (on apixaban), NIDDM, CAD, CVA (1999) HTN, HLD, who presents to the ED with diarrhea that began on Friday (12/05/18). The patient states that she has been experiencing multiple episodes of loose watery stools. She had one episode that she describes as a gush of stool. She states that every time she urinates she also releases watery diarrhea and it his wet when she wipes her back side. The patient was recently hospitalized for 16 days for a CVA and at that time did not receive any antibiotics. She denies any foul odor or abdominal pain. She reports performing 2 physical therapy exercises last night, taking her sleeping pills afterwards, and subsequently developing lightheadedness, but she was able to walk around. She denies any dizziness, vertigo, or syncopal episodes. The patient denies any fever, chills, nausea, vomiting, constipation, or abdominal pain. Denies any chest pain or shortness of breath. Allergies: Sulfa, peanut. - Physicial Exam PE: 12/08/18 10:00 GENERAL: Awake, alert, and fully oriented, in no acute distress HEAD: No signs of trauma EYES: PERRLA, EOMI, sclera anicteric, conjunctiva clear ENT: Auricles normal inspection, hearing grossly normal, nares patent, oropharynx clear without exudates. Moist mucosa NECK: Normal ROM, supple, no lymphadenopathy, JVD, or masses LUNGS: Breath sounds equal, clear to auscultation bilaterally. No wheezes, and no crackles HEART: Regular rate and rhythm, normal S1 and S2, no murmurs, rubs or gallops ABDOMEN: Soft, nontender, normoactive bowel sounds. No guarding, no rebound. No masses EXTREMITIES: Moving all extremities, no edema. No clubbing or cyanosis. No cords, erythema, or tenderness NEUROLOGICAL: Cranial nerves II through XII grossly intact. Normal speech. SKIN: Warm, Dry, normal turgor, no rashes or lesions noted - Medical Decision Making 12/08/18 09:55 a/p: 88yo female with diarrhea x 4 days -watery stool -no foul smell, no recent abx -recently hospitalized for cva -pt states racing thoughts last night - no vertigo symptoms, ambulated to the bathroom overnight, no lightheaded/near syncope, states everytime she closed her eyes she couldn't fall asleep and her mind was racing -no falls -no abd pain -will send labs, ekg, will send stool studies if patient can provide sample -will monitor and reassess -pt did not take am bp meds 12/08/18 11:52 labs reviewed no elevated wbc cr at baseline pt has been ambulatory in the ED had a formed bm in the ED 12/08/18 11:54 pt stable for dc to home with PMD follow up Heart Score/ECG Review - ECG Intrepretation Comment:: 12/08/18 09:57 sinus at 63, lafb, nl axis, no acute st/t wave findings
[2018-12-08 11:05] LABS: EPI CELLS 2.8 /HPF (0-5/HPF); HYALINE CASTS 2 /lpf (0-8); URINE APPEARANCE CLOUDY; URINE BACTERIA 171.6 /hpf (NEGATIVE); URINE BILIRUBIN NEGATIVE (NEGATIVE); URINE COLOR YELLOW; URINE GLUCOSE (UA) NEGATIVE (NEGATIVE); URINE KETONE NEGATIVE (NEGATIVE); URINE LEUK ESTERASE TRACE (NEGATIVE); URINE NITRITE NEGATIVE (NEGATIVE); URINE PROTEIN NEGATIVE (NEGATIVE); URINE UROBILINOGEN 0.2 mg/dL (0.2-1.0); URINE WBC 2 /hpf (0-5)
[2018-12-08 11:49] LABS: ALBUMIN 3.8 g/dl (3.4-5.0); BILIRUBIN,TOTAL 0.4 mg/dL (0.2-1); BLOOD UREA NITROGEN 38.9 mg/dL (7-18); CALCIUM 9.4 mg/dL (8.5-10.1); CREATININE 1.5 mg/dL (0.55-1.3); POTASSIUM 3.9 mmol/L (3.5-5.1)
[2018-12-08 12:27] VITALS: BP 152/68; TEMP 98.1
--- NOTE | 2018-12-08 15:56 | EKG ---
Test Reason : Blood Pressure : / mmHG Vent. Rate : 063 BPM Atrial Rate : 063 BPM P-R Int : 182 ms QRS Dur : 102 ms QT Int : 416 ms P-R-T Axes : 028 014 028 degrees QTc Int : 425 ms POOR DATA QUALITY, INTERPRETATION MAY BE ADVERSELY AFFECTED NORMAL SINUS RHYTHM NORMAL ECG WHEN COMPARED WITH ECG OF 22-NOV-2018 13:59, NO SIGNIFICANT CHANGE WAS FOUND Confirmed by MD HUMBERTO, EULALIO ([id number]) on 12/08/2018 3:56:04 PM Referred By: Confirmed By:EULALIO PAUL MD
== END 2018-12-08 12:28 | disposition home or self-care (01) ==
LOC: JER 07:58
PROC: 3E0337Z Introduction of Electrolytic and Water Balance Substance into Peripheral Vein, Percutaneous Approach (ICD-10-PCS; principal; 2018-12-08)
DX: R19.7 Diarrhea, unspecified (principal); R42 Dizziness and giddiness; I10 Essential (primary) hypertension; E11.9 Type 2 diabetes mellitus without complications; Z86.73 Personal history of transient ischemic attack (TIA), and cerebral infarction without residual deficits
CPT/HCPCS: 36415; 80053; 81003; 85025; 85610; 87086; 87324; 87449; 93005; 93010; 96360; 99284-25; J7030

== ENCOUNTER 2019-04-02 16:00 | Emergency (ER) | payer OTHER ==
[2019-04-02 16:36] VITALS: BP 150/43; PULSE 68; TEMP 97.7; BMI 27.0
[2019-04-02] MEDS ORDERED: ACETAMINOPHEN 325 MG TABLET (FP) PO ONE (17:04)
[2019-04-02] MEDS ORDERED: LIDOCAINE 5% TOPICAL PATCH TP ONE (17:04)
[2019-04-02] MEDS ORDERED: ACETAMINOPHEN 325 MG TABLET (FP) ONE (18:09)
[2019-04-02] MEDS ORDERED: LIDOCAINE 5% TOPICAL PATCH ONE (18:09)
--- NOTE | 2019-04-02 19:47 | PDOC ---
History of Present Illness - General History Source: Patient Exam Limitations: No Limitations <Rosi Ruth - Last Filed: 04/02/19 19:42> <Ame Varma - Last Filed: 04/05/19 14:08> - General Chief Complaint: Injury Stated Complaint: FALL Time Seen by Provider: 04/02/19 16:53 Past History - Past Medical History Anemia: No Asthma: No Cancer: No Cardiac Disorders: Yes CVA: Yes (2000, mild right sided weakness) COPD: No Diabetes: Yes HTN: Yes Hypercholesterolemia: Yes - Surgical History Abdominal Surgery: No Orthopedic Surgery: Yes (left knee surgery) - Immunization History Immunization Up to Date: Yes - Psycho Social/Smoking Cessation Hx Smoking Status: No Smoking History: Never smoked Years of Tobacco Use: 0 Have you smoked in the past 12 months: No Number of Cigarettes Smoked Daily: 0 Hx Alcohol Use: No Drug/Substance Use Hx: No Substance Use Type: None Hx Substance Use Treatment: No <Rosi Ruth - Last Filed: 04/02/19 19:42> <Ame Varma - Last Filed: 04/05/19 14:08> - Past Medical History Allergies/Adverse Reactions: Allergies Allergy/AdvReac Type Severity Reaction Status Date / Time Sulfa (Sulfonamide Allergy Intermediate Hives Verified 04/02/19 16:32 Antibiotics) peanut Allergy Unknown Verified 04/02/19 16:32 Home Medications: Ambulatory Orders Aspirin [ASA -] 81 mg PO AM 08/24/17 Cholecalciferol (Vitamin D3) [Vitamin D3] 1,000 unit PO DAILY 08/24/17 Nifedipine [Procardia Xl] 60 mg PO AM 08/24/17 Apixaban [Eliquis -] 5 mg PO BID tablet 11/26/18 Hydralazine HCl 50 mg PO ASDIR 12/08/18 Losartan Potassium [Cozaar -] 100 mg PO DAILY 12/08/18 Polyethylene Glycol 3350 [Miralax 119 gm Btl -] 17 gm PO PRN 12/08/18 Lidocaine 5% Patch [Lidoderm -] 1 patch TP DAILY #7 patch 04/02/19 *Physical Exam - Vital Signs Last Vital Signs Temp Pulse Resp BP Pulse Ox 97.7 F 68 17 150/43 L 99 04/02/19 16:33 04/02/19 16:33 04/02/19 16:33 04/02/19 16:33 04/02/19 16:33 - Physical Exam General Appearance: No: Apparent Distress HEENT: positive: Other (no head trauma) Respiratory/Chest: positive: Chest Tender (minimal along L lateral chest wall ( along 8th rib, anterior axillary line), no ecchymosis, no palpable step-off), Lungs Clear, Normal Breath Sounds. negative: Respiratory Distress Cardiovascular: positive: Regular Rhythm, Regular Rate, S1, S2. negative: Murmur Gastrointestinal/Abdominal: positive: Soft. negative: Tender Integumentary: positive: Normal Color Neurologic: positive: Fully Oriented, Alert, Normal Mood/Affect, Other ( ambulatory) <Rosi Ruth - Last Filed: 04/02/19 19:42> - Vital Signs Last Vital Signs Temp Pulse Resp BP Pulse Ox 97.7 F 68 17 150/43 L 99 04/02/19 16:33 04/02/19 16:33 04/02/19 16:33 04/02/19 16:33 04/02/19 16:33 <Ame Varma - Last Filed: 04/05/19 14:08> ED Treatment Course - RADIOLOGY Radiology Studies Ordered: Category Date Time Status CHEST CT WITHOUT CONTRAST [CT] Stat CT Scan 04/02/19 17:05 Completed - Medications Given in the ED: ED Medications Discontinued Medications Generic Name Dose Route Start Last Admin Trade Name Freq PRN Reason Stop Dose Admin Acetaminophen 975 mg 04/02/19 17:04 04/02/19 18:18 Tylenol - PO 04/02/19 17:05 975 mg ONCE ONE Administration Lidocaine 1 patch 04/02/19 17:04 04/02/19 18:18 Lidoderm Patch - TP 04/02/19 17:05 1 patch ONCE ONE Administration <Rosi Ruth - Last Filed: 04/02/19 19:42> - Medications Given in the ED: ED Medications Discontinued Medications Generic Name Dose Route Start Last Admin Trade Name Freq PRN Reason Stop Dose Admin Acetaminophen 975 mg 04/02/19 17:04 04/02/19 18:18 Tylenol - PO 04/02/19 17:05 975 mg ONCE ONE Administration Lidocaine 1 patch 04/02/19 17:04 04/02/19 18:18 Lidoderm Patch - TP 04/02/19 17:05 1 patch ONCE ONE Administration <Ame Varma - Last Filed: 04/05/19 14:08> Medical Decision Making - Medical Decision Making 89-year-old female history of hypertension, diabetes, PE (on Eliquis), stroke x2 (with right-sided weakness), renal insufficiency presents status post mechanical fall today at 3 PM in a store. Patient states her foot got caught in the carpet and she fell on her left side. Patient denies hitting her head or LOC. Is complaining of soreness along the left side of her ribs. Denies headache, neck pain, shortness of breath, chest pain, abdominal pain, vomiting, new numbness of extremities. CT chest shows no evidence of rib fracture or pneumothorax Patient appears comfortable Patient was given lidocaine patch and Tylenol for pain 04/02/19 19:44 <Rosi Ruth - Last Filed: 04/02/19 19:42> - Medical Decision Making The patient was seen and evaluated in conjunction with midlevel provider under my direct supervision, ancillary studies were reviewed. I agree with the plan as outlined with MATI Ruth. HPI, workup/dispo as outlined. VS reviewed, wnl. workup unremarkable, pain controlled. CT chest neg for ptx or effusion or fx. anticipate discharge, pcp followup, return precautions 04/05/19 14:08 <Ame Varma - Last Filed: 04/05/19 14:08> Discharge - Discharge Information Problems reviewed: Yes - Admission No - Additional Discharge Information Prescription Drug Monitoring Program (I-STOP) results: I-STOP not reviewed <Rosi Ruth - Last Filed: 04/02/19 19:42> <Ame Varma - Last Filed: 04/05/19 14:08> - Discharge Information Clinical Impression/Diagnosis: Rib contusion Qualifiers: Encounter type: initial encounter Laterality: left Qualified Code(s): S20.212A - Contusion of left front wall of thorax, initial encounter Condition: Stable Disposition: HOME - Additional Discharge Information Prescriptions: Lidocaine 5% Patch [Lidoderm -] 1 patch TP DAILY #7 patch - Follow up/Referral Referrals: Neda Robertson MD [Primary Care Provider] - - Patient Discharge Instructions Patient Printed Discharge Instructions: DI for Rib Contusion Additional Instructions: Thank you for choosing [facility]. It was a pleasure taking care of you. You may take Tylenol 650 mg every 6 hours by mouth as needed for pain. You are also sent prescriptions for lidocaine patches. You may also apply warm compresses to site of pain Return to the Emergency Department if your symptoms worsen or persist or have other concerning symptoms. - Post Discharge Activity
== END 2019-04-02 19:57 | disposition home or self-care (01) ==
LOC: JER 16:00
DX: S20.212A Contusion of left front wall of thorax, initial encounter (principal); Z88.2 Allergy status to sulfonamides; Z91.010 Allergy to peanuts; I10 Essential (primary) hypertension; E11.9 Type 2 diabetes mellitus without complications; Z86.711 Personal history of pulmonary embolism; Z79.01 Long term (current) use of anticoagulants
CPT/HCPCS: 71250-TC; 99282-25